=== PATIENT | female | born 1940 | race Caucasian/White ===

== ENCOUNTER → 2016-10-28 | Outpatient (CLI) | payer BC ==
[2016-06-25 11:00] VITALS: BP 128/87
[~2016-10-28] MED LIST: AMLO5TAB4 PO; APIX5TAB PO; ASPI325T4 PO; ASPI81TA9 PO; CEFU500T46 PO; CELE200C PO; DIGO125T16 PO; DILT120T4 PO; DILT180C29 PO; DILT240C2 PO; FERR-26 PO; FURO20TA3 PO; FURO40TA4 PO; HYDR-2678 PO; HYDR200T PO; HYDR473S51 PO; LEVO100T PO; LEVO25TA4 PO; LEVO500T38 PO; LISI10TA2 PO; LISI2.5T PO; LISI40TA PO; MELO-156 PO; METO100T2 PO; METO1TAB7 PO; METO25TA4 PO; METO50TA2 PO; OMEG300C PO; OXYC-244 PO; POTA10TA12 PO; SERT50TA PO; SULF1POW MC; SULF500T7 PO
--- NOTE | 2016-10-28 13:11 | KCIC ---
PROCEDURE Left knee, three views; left tibia and fibula, two views. HISTORY Pain status post arthroplasty. Clicking noise and erythema. FINDINGS Frontal, lateral and oblique views of the left knee and frontal and lateral views of the left tibia and fibula are obtained. There is a left knee arthroplasty in expected position. There is no evidence of loosening or periprosthetic fracture. There is a small knee joint effusion. There is suspected bone demineralization. There is a small plantar spur. IMPRESSION 1. Left knee arthroplasty in expected position. 2. Suspected small left knee effusion. 3. Suspected bone demineralization. 4. Small plantar spur. Electronically signed by: Viviana Peguero (Oct 28, 2016 13:09:06)
== END | disposition home or self-care (01) ==
LOC: KCIC 12:38
PROVIDERS: ATTEND Family Medicine
DX: M25.562 Pain in left knee (principal); M79.662 Pain in left lower leg; M79.604 Pain in right leg; Z96.652 Presence of left artificial knee joint
CPT/HCPCS: 73562; 73590

== ENCOUNTER → 2017-01-19 | Outpatient (CLI) | payer BC ==
[2016-06-25 11:00] VITALS: BP 128/87
[~2017-01-19] MED LIST changes: +ASPI-612 PO; -ASPI325T4 PO; +ASPI325T8 PO; -ASPI81TA9 PO; -LEVO500T38 PO; +LEVO500T59 PO; -MELO-156 PO; +MELO7.5T29 PO; -OXYC-244 PO; +OXYC-327 PO
--- NOTE | 2017-01-19 16:21 | CARD ---
APPROVED REPORT EXAM: Two-dimensional and M-mode echocardiogram with Doppler and color Doppler. Other Information Quality : Average Rhythm : Atrial Fibrillation INDICATION Aortic Valve Disease Bioprosthetic aortic valve 2D DIMENSIONS RVDd3.1 (2.9-3.5cm)Left Atrium(2D)4.4 (1.6-4.0cm) IVSd1.3 (0.7-1.1cm)Aortic Root(2D)3.1 (2.0-3.7cm) LVDd4.4 (3.9-5.9cm)LVOT Diameter1.9 (1.8-2.4cm) PWd1.3 (0.7-1.1cm)LVDs3.6 (2.5-4.0cm) FS (%) 22.8 %SV34.2 ml LVEF(%)45.0 (>50%) Aortic Valve AoV Peak Eugenio.191.6cm/sAoV VTI34.3cm AO Peak GR.14.7mmHgLVOT Peak Eugenio.94.3cm/s LVOT VTI 18.76cmAO Mean GR.9mmHg JUAN (VMAX)1.59gb0COY (VTI)1.63cm2 AI P 1/2 Ilgt351kg Mitral Valve MV E Adqnjyuj545.1cm/sMV DECEL JESZ193zy MV A Vgpewzqf28.3cm/sMV E Mean Gr.2mmHg MV FZV57gjV/A Ratio1.4 MVA (PHT)4.82cm2 TDI E/Lateral E'7.6E/Medial E'9.0 Pulmonary Valve PV Peak Jwwsphua62.0cm/sPV Peak Grad.4mmHg RVOT VTI13.1cm Tricuspid Valve TR P. Rqoigxby417rt/sRAP NYWZKQCU5luTm TR Peak Gr.03gvCfIWSG16ueRg Pulmonary Vein S1 Zviolypn12.9cm/sD2 Pnqujspl27.8cm/s LEFT VENTRICLE The left ventricle is normal size. There is borderline concentric left ventricular hypertrophy. Left ventricle systolic function is mildly diminishedl. The Ejection Fraction is 40-45%. Septal motion con sistent with post-operative state. Unable to assess diastolic function. There is no ventricular septa l defect visualized. RIGHT VENTRICLE The right ventricle is normal size. The right ventricular systolic function is normal. ATRIA The left atrium is mildly dilated. The right atrium size is normal. The interatrial septum is intact with no evidence for an atrial septal defect or patent foramen ovale as noted on 2-D or Doppler imagi ng. AORTIC VALVE Doppler and Color Flow revealed trace aortic regurgitation. Maximum pressure gradient of 15 mmHg and mean pressure gradient of 9 mmHg across the bioprosthetic valve. There is a bioprosthetic (bovine) ao rtic valve prosthesis. The prosthetic aortic valve appears normal. MITRAL VALVE Mitral annular calcification is mild. The mitral valve leaflets are thickened. There is no mitral ken ve stenosis. Doppler and Color Flow revealed trace mitral regurgitation. TRICUSPID VALVE The tricuspid valve is not well visualized. Doppler and Color Flow revealed mild tricuspid regurgitat ion. The PA pressure was estimated at 37 mmHg. There is no tricuspid valve stenosis. PULMONIC VALVE The pulmonic valve is not well visualized. Doppler and Color Flow revealed no pulmonic valvular regur gitation. There is no pulmonic valvular stenosis. GREAT VESSELS The aortic root is normal in size. The ascending aorta is dilated measuring 4.17 cm. Normal pulmonary venous flow (Doppler). The IVC is normal in size and collapses >50% with inspiration. PERICARDIAL EFFUSION There is no evidence of significant pericardial effusion. Critical Notification Critical Value: No <Conclusion> Left ventricle systolic function is mildly diminishedl. The Ejection Fraction is 40-45%. The left atrium is mildly dilated. The ascending aorta is dilated measuring 4.17 cm. Bioprosthetic (bovine) aortic valve prosthesis appears well seated and functioning well. Trace mitral regurgitation. Mild tricuspid regurgitation. The PA pressure was estimated at 37 mmHg. There is no evidence of significant pericardial effusion.
== END | disposition home or self-care (01) ==
LOC: ECHO 13:32
PROVIDERS: ATTEND Internal Medicine Cardiovascular Disease
DX: I08.3 Combined rheumatic disorders of mitral, aortic and tricuspid valves (principal); Z95.2 Presence of prosthetic heart valve
CPT/HCPCS: 93306

== ENCOUNTER 2017-12-14 07:32 | Day surgery (SDC) | payer BC ==
[~2017-12-14 07:32] MED LIST changes: -AMLO5TAB4 PO; -APIX5TAB PO; -ASPI-612 PO; -ASPI325T8 PO; +BACITRACIN 50,000 UNIT in IV NORMAL SALINE 1000ML BAG 1,000 ML IRR; -CEFU500T46 PO; -CELE200C PO; -DIGO125T16 PO; -DILT120T4 PO; -DILT180C29 PO; -DILT240C2 PO; -FERR-26 PO; -FURO20TA3 PO; -FURO40TA4 PO; -HYDR-2678 PO; -HYDR200T PO; -HYDR473S51 PO; +IV RINGERS,LACTATED 1000ML 1,000 ML IV; -LEVO100T PO; -LEVO25TA4 PO; -LEVO500T59 PO; -LISI10TA2 PO; -LISI2.5T PO; -LISI40TA PO; -MELO7.5T29 PO; -METO100T2 PO; -METO1TAB7 PO; -METO25TA4 PO; -METO50TA2 PO; +MORPHINE SULFATE 2 MG/ML DISP.SYRIN. IV; -OMEG300C PO; +ONDANSETRON PF 4 MG/2 ML VIAL. IV; -OXYC-327 PO; -POTA10TA12 PO; +PROCHLORPERAZINE 10 MG/2 ML VIAL. IV; -SERT50TA PO; -SULF1POW MC; -SULF500T7 PO
[2017-12-14] MEDS ORDERED: LIDOCAINE 2% PF Vial for OR 5 ML VIAL. (08:31)
[2017-12-14] MEDS ORDERED: ONDANSETRON PF 4 MG/2 ML VIAL. (08:31)
[2017-12-14] MEDS ORDERED: PROPOFOL 20 ML IV (08:31)
[2017-12-14] MEDS ORDERED: DEXAMETHASONE SOD PHOS 20 MG/5 ML VIAL. (08:31)
[2017-12-14] MEDS ORDERED: fentaNYL PF VIAL 100 MCG/2 ML VIAL ×3 (08:59→10:49)
[2017-12-14] MEDS ORDERED: ePHEDrine PF IN SALINE 50 MG/5 ML DISP.SYRIN IV (09:09)
[2017-12-14] MEDS: BUPIVACAINE-EPI 0.25%-1:200000 50 ML VIAL. (09:16)
[2017-12-14] MEDS ORDERED: SEVOFLURANE 31 TO 60 MINUTES. IH (09:26)
[2017-12-14] MEDS: LIDOCAINE 1% PF 2 ML VIAL. ID (10:20)
[2017-12-14] MEDS: fentaNYL PF VIAL 100 MCG/2 ML VIAL IV ×6 (10:21→11:36)
[2017-12-14] MEDS: HYDROcodone/APAP 5/325MG 1 TAB TABLET PO (10:48)
[2017-12-14] MEDS ORDERED: ceFAZolin 2GM PREMIX 2 GM/50 ML BAG IV (12:00)
== END 2017-12-14 12:20 | disposition home or self-care (01) ==
LOC: SURG 07:32
DX: R59.1 Generalized enlarged lymph nodes (principal); E78.89 Other lipoprotein metabolism disorders; Z88.8 Allergy status to other drugs, medicaments and biological substances; Z86.73 Personal history of transient ischemic attack (TIA), and cerebral infarction without residual deficits; I11.0 Hypertensive heart disease with heart failure; I50.9 Heart failure, unspecified; Z95.4 Presence of other heart-valve replacement; E78.00 Pure hypercholesterolemia, unspecified; Z79.01 Long term (current) use of anticoagulants; I48.91 Unspecified atrial fibrillation; Z90.49 Acquired absence of other specified parts of digestive tract; Z90.710 Acquired absence of both cervix and uterus; E66.9 Obesity, unspecified; Z68.34 Body mass index [BMI] 34.0-34.9, adult; M19.90 Unspecified osteoarthritis, unspecified site; M06.9 Rheumatoid arthritis, unspecified; Z96.653 Presence of artificial knee joint, bilateral; Z96.641 Presence of right artificial hip joint; E03.9 Hypothyroidism, unspecified; F32.9 Major depressive disorder, single episode, unspecified; D64.9 Anemia, unspecified; Z86.14 Personal history of Methicillin resistant Staphylococcus aureus infection; Z82.49 Family history of ischemic heart disease and other diseases of the circulatory system; Z80.42 Family history of malignant neoplasm of prostate; Z82.0 Family history of epilepsy and other diseases of the nervous system; Z79.82 Long term (current) use of aspirin; Z79.899 Other long term (current) drug therapy; Z87.891 Personal history of nicotine dependence
CPT/HCPCS: 38500; 88184; 88185; 88307; A7015; J0690; J1100; J2405; J2704; J3010; J3490; J7030

== ENCOUNTER 2018-02-09 10:10 | Emergency (ER) | payer BC ==
[2018-02-09 12:02] LABS: BILIRUBIN,URINE SMALL (NEG); CLARITY,URINE CLEAR; COLOR,URINE YELLOW; GLUCOSE,URINE NEGATIVE (NEG); NITRITE,URINE NEGATIVE (NEG); PH,URINE 6.5; PROTEIN,URINE NEGATIVE (NEG-TRACE); UROBILINOGEN,URINE 0.2 mg/dL (0.2 mg/dL)
[2018-02-09] MEDS: oxyCODONE/APAP 10/325 1 TAB TABLET PO (12:08)
[2018-02-09 12:13] LABS: BACTERIA,URINE MODERATE /HPF (0-FEW); HYALINE CASTS, URINE OCCASIONAL /HPF; RBC,URINE OCC /HPF (0-2); SQUAMOUS EPITHELIAL CELL,UR MOD /LPF; WBC,URINE OCC /HPF (0-4)
[2018-02-09 12:42] LABS: ADD MAN DIFF? NO
[2018-02-09 12:45] LABS: BASO % 0 % (0-3); EOS % 1 % (0-3); HEMATOCRIT 32.2 % (36.0-47.0); HEMOGLOBIN 10.9 g/dL (12.0-15.5); LYMPH # 1.7 x10^3/uL (1.0-4.8); LYMPH % 24 % (24-48); MEAN CORPUSCULAR HEMOGLOBIN 33 pg (25-35); MEAN CORPUSCULAR HGB CONC 34 g/dL (31-37); MEAN CORPUSCULAR VOLUME 98 fL (79-100); MONO # 0.7 x10^3/uL (0.0-1.1); MONO % 9 % (0-9); NEUT # 4.8 x10^3uL (1.8-7.7); NEUT % 66 % (31-73); PLATELET COUNT 175 x10^3/uL (140-400); RED CELL DISTRIBUTION WIDTH 15.1 % (11.5-14.5); WHITE BLOOD COUNT 7.3 x10^3/uL (4.0-11.0)
[2018-02-09 12:52] LABS: ANION GAP 7 (6-14); BLOOD UREA NITROGEN 22 mg/dL (7-20); BUN/CREATININE RATIO 22 (6-20); CALCIUM 8.7 mg/dL (8.5-10.1); CARBON DIOXIDE 28 mmol/L (21-32); CHLORIDE 103 mmol/L (98-107); GFR 53.6; GLUCOSE 96 mg/dL (70-99); POTASSIUM 3.9 mmol/L (3.5-5.1); SODIUM 138 mmol/L (136-145)
[2018-02-09 12:58] LABS: ALBUMIN 3.1 g/dL (3.4-5.0); ALBUMIN/GLOBULIN RATIO 0.9 (1.0-1.7); ALK PHOS 80 U/L (46-116); ALT (SGPT) 26 U/L (14-59); AST (SGOT) 18 U/L (15-37); TOTAL BILIRUBIN 0.3 mg/dL (0.2-1.0); TOTAL PROTEIN 6.6 g/dL (6.4-8.2)
== END 2018-02-09 15:38 | disposition home or self-care (01) ==
LOC: ER 10:10
DX: S09.90XA Unspecified injury of head, initial encounter (principal); R00.1 Bradycardia, unspecified; I48.2 Chronic atrial fibrillation; I48.92 Unspecified atrial flutter; Z79.01 Long term (current) use of anticoagulants; I10 Essential (primary) hypertension; Z88.8 Allergy status to other drugs, medicaments and biological substances; W18.09XA Striking against other object with subsequent fall, initial encounter; Y93.89 Activity, other specified; Y99.8 Other external cause status; Y92.89 Other specified places as the place of occurrence of the external cause
CPT/HCPCS: 36415; 70450; 72125; 73562; 80053; 80162; 81001; 85025; 87086; 93005; 99285-25

== ENCOUNTER → 2018-02-15 | Outpatient (CLI) | payer BC ==
[2018-02-09 14:33] VITALS: BP 118/60
[~2018-02-15] MED LIST changes: +AMLO5TAB4 PO; +APIX5TAB PO; +ASPI-612 PO; +ASPI325T8 PO; -BACITRACIN 50,000 UNIT in IV NORMAL SALINE 1000ML BAG 1,000 ML IRR; +CEFU500T46 PO; +CELE200C PO; +CONTRAST GIVEN. MC PRN; +DIGO125T79 PO; +DILT120T4 PO; +DILT180C29 PO; +DILT240C2 PO; +FERR325T14 PO; +FURO20TA3 PO; +FURO40TA4 PO; +HYDR-2678 PO; +HYDR-971 PO; +HYDR200T71 PO; +HYDR473S51 PO; +IOHEXOL 300 MG/ML 100ML VIAL. IV ONE; -IV RINGERS,LACTATED 1000ML 1,000 ML IV; +LEVO100T PO; +LEVO25TA4 PO; +LEVO500T59 PO; +LISI-130 PO; +LISI10TA2 PO; +LISI2.5T PO; +MELO7.5T29 PO; +METO100T7 PO; +METO1TAB7 PO; +METO25TA4 PO; +METO50TA6 PO; -MORPHINE SULFATE 2 MG/ML DISP.SYRIN. IV; +OMEG300C PO; -ONDANSETRON PF 4 MG/2 ML VIAL. IV; +OXYC-327 PO; +POTA10TA12 PO; -PROCHLORPERAZINE 10 MG/2 ML VIAL. IV; +SERT50TA PO; +SULF1POW MC; +SULF500T7 PO
--- NOTE | 2018-02-15 10:18 | RAD ---
CT Chest With Intravenous Contrast: History: Lung nodule Comparison: CT chest March 28, 2015. Technique: Helical CT of the chest was performed after the administration of intravenous contrast, 60 mL Omnipaque-300. Exposure: One or more of the following individualized dose reduction techniques were utilized for this examination: 1. Automated exposure control 2. Adjustment of the mA and/or kV according to patient size 3. Use of iterative reconstruction technique Findings: Visualized thyroid appears symmetric. Trachea and mainstem bronchi appear patent. No mediastinal lymphadenopathy is identified. Aortic atherosclerosis is seen. The ascending thoracic aorta appears aneurysmal with 4.4 cm in diameter at the mid ascending aorta, similar to previous study. Prosthetic aortic valve is seen. Descending thoracic aorta has a normal caliber. No pericardial thickening is identified. Right cardiac chambers appear borderline in size. No mediastinal or hilar lymphadenopathy is appreciated. Median sternotomy wires are seen. The left upper lobe demonstrates an irregular groundglass and soft tissue nodule which is measured at 1.9 cm in maximum dimension; since previous study, there is interval increase in soft tissue component as well as mild increase in size. Consequently, this is worrisome for pulmonary malignancy such as adenocarcinoma/bronchioloalveolar carcinoma. Previous maximum measurement was reported at 1.5 cm cm. Several small, nonspecific, scattered soft tissue pulmonary nodules are seen. Right upper lobe demonstrates 3 mm soft tissue pulmonary nodule (series 5 image 34). Superior segment of the left lower lobe adjacent to the fissure demonstrates 3 mm soft tissue pulmonary nodule (series 5 image 81). Soft tissue right upper lobe pulmonary nodule measuring 2-3 mm (series 5 image 84) is unchanged. A few additional small soft tissue pulmonary nodule throughout both lungs. Small epiphrenic esophageal diverticulum is seen. There is mild thickening of the left adrenal gland, similar to previous study. Cholecystectomy clips are present. There is epigastric ventral hernia, incompletely assessed, containing one wall of the transverse colon (Fraire's hernia) as well as fat. No suspicious osseous lesions are seen. Degenerative changes are present in the spine. Mild dextroconvex scoliosis of the thoracic spine is seen. Impression: 1. Mild interval enlargement in overall size of left upper lobe pulmonary nodule as well as increased amount of soft tissue component. Findings are worrisome for pulmonary malignancy. 2. No evidence of metastatic disease in the chest. 3. Ascending thoracic aortic aneurysm, similar to previous study. Electronically signed by: Ze Ace MD (02/15/2018 10:15 AM) [facility]
== END | disposition home or self-care (01) ==
LOC: CT 08:23
PROVIDERS: ATTEND Internal Medicine Hematology & Oncology
DX: R91.1 Solitary pulmonary nodule (principal); I71.2 Thoracic aortic aneurysm, without rupture; K43.9 Ventral hernia without obstruction or gangrene; I13.0 Hypertensive heart and chronic kidney disease with heart failure and stage 1 through stage 4 chronic kidney disease, or unspecified chronic kidney disease; N18.3 Chronic kidney disease, stage 3 (moderate); I50.42 Chronic combined systolic (congestive) and diastolic (congestive) heart failure; E78.00 Pure hypercholesterolemia, unspecified; E03.9 Hypothyroidism, unspecified
CPT/HCPCS: 71260; Q9967

== ENCOUNTER 2018-02-22 07:01 | Outpatient (CLI) | payer BC ==
[~2018-02-22] VITALS: Ht 149.9 cm; Wt 87.1 kg
[2018-02-22] VITALS (13 sets, daily range): BP systolic 96–190; BP diastolic 50–108
[~2018-02-22 07:01] MED LIST changes: -CONTRAST GIVEN. MC PRN; -IOHEXOL 300 MG/ML 100ML VIAL. IV ONE
[2018-02-22 07:42] LABS: BASO % 1 % (0-3); EOS % 0 % (0-3); HEMATOCRIT 36.8 % (36.0-47.0); HEMOGLOBIN 12.4 g/dL (12.0-15.5); LYMPH # 1.9 x10^3/uL (1.0-4.8); LYMPH % 23 % (24-48); MEAN CORPUSCULAR HEMOGLOBIN 33 pg (25-35); MEAN CORPUSCULAR HGB CONC 34 g/dL (31-37); MEAN CORPUSCULAR VOLUME 97 fL (79-100); MONO # 0.9 x10^3/uL (0.0-1.1); MONO % 11 % (0-9); NEUT # 5.4 x10^3uL (1.8-7.7); NEUT % 65 % (31-73); PLATELET COUNT 333 x10^3/uL (140-400); RED BLOOD COUNT 3.77 x10^6/uL (3.50-5.40); WHITE BLOOD COUNT 8.3 x10^3/uL (4.0-11.0)
[2018-02-22] MEDS ORDERED: METH2.5T PO (07:42)
[2018-02-22] MEDS ORDERED: FOLI1TAB16 PO (07:42)
[2018-02-22 07:55] LABS: PROTHROMBIN TIME PATIENT 14.3 SEC (11.7-14.0)
[2018-02-22] MEDS ORDERED: LIDOCAINE WITH 8.4% SOD BICARB 3 ML DISP.SYRIN. ONE (07:56)
[2018-02-22] MEDS ORDERED: MIDAZOLAM HCL/PF 2 MG/2 ML VIAL. ONE (08:01)
[2018-02-22] MEDS ORDERED: fentaNYL PF VIAL 100 MCG/2 ML VIAL ONE (08:01)
[2018-02-22] MEDS ORDERED: LIDOCAINE WITH 8.4% SOD BICARB 3 ML DISP.SYRIN. IJ ONE (08:15)
[2018-02-22] MEDS ORDERED: fentaNYL PF VIAL 100 MCG/2 ML VIAL IV ONE (08:15)
[2018-02-22] MEDS ORDERED: MIDAZOLAM HCL/PF 2 MG/2 ML VIAL. IV ONE (08:15)
--- NOTE | 2018-02-22 09:07 | PDOC ---
MODERATE SEDATION ASSESSMENT RISKS/ALTERNATIVES Risks/Alternatives Risks and alternatives of this type of sedation and procedure discussed with: RISK/ALTERNATIVES: Patient H & P ON CHART H & P H & P on chart and reviewed for co-morbid conditions and appropriate labs. H&P ON CHART: Yes STATUS PREG STATUS ASSESSED: Yes MEDS/ALLERGIES REVIEWED Meds/Allergies Reviewed Medications and Allergies including time and route of recently administered narcotics and sedatives. MEDS/ALLERGIES REVIEWED: Yes ASA RATING ASA RATING: II AIRWAY ASSESSMENT Airway Assessment Airway patency, oral function limitations, presence of caps, crowns, dentures, partials, and ability to extend neck assessed. AIRWAY ASSESSMENT: Yes MALLAMPATI SCORE MALLAMPATI SCORE: II PRE-SEDATION ASSESSMENT PRE-SEDATION ASSESSMENT: Yes SALENA KNOWLES MD Feb 22, 2018 09:07
--- NOTE | 2018-02-22 12:28 | RAD ---
CT-guided biopsy, left upper lobe pulmonary nodule 02/22/2018 Indication: 77-year-old female with a left upper lobe pulmonary nodule. Prior imaging going back to 2014 demonstrates a nodule be present that time slowly going in the interim. Imaging findings raise concern for adenocarcinoma in situ. Discussion: The risks and benefits of the procedure were discussed the patient. Informed consent was obtained. Timeout procedure was performed. The posterior left thorax was prepped and draped using sterile barrier technique. CT imaging was performed redemonstrating a small mixed density nodule left upper lobe. 1% lidocaine without epinephrine was administered to the skin and subcutaneous tissues for local anesthesia. Under intermittent CT guidance a a 17-gauge needle was advanced to the periphery of the nodule. Core biopsy samples were obtained. Repeat imaging demonstrates perilesional hemorrhage. Minimal hemoptysis noted. The needle was removed and manual pressure held. Repeat imaging demonstrates similar perilesional hemorrhage with no pneumothorax. Patient tolerated the procedure well and remained hemodynamically stable throughout. The procedures performed under conscious sedation including continuous cardiopulmonary monitoring via a dedicated sedation nurse. Gxbj-tb-ivcv sedation time: 30 minutes. Impression: CT-guided biopsy, left upper lobe pulmonary nodule PQRS Compliance Statement: One or more of the following individualized dose reduction techniques were utilized for this examination: 1. Automated exposure control 2. Adjustment of the mA and/or kV according to patient size 3. Use of iterative reconstruction technique
--- NOTE | 2018-02-22 17:48 | RAD ---
EXAM: CHEST AP ONLY DATE: 02/22/2018 10:02 AM INDICATION: OUTPATIENT. LUNG BIOPSY LEFT SIDE. Hx CABG, HTN COMPARISON: No Prior FINDINGS: The heart is mildly enlarged. Mediastinal and hilar contours are stable. Patchy opacities in the left upper lung likely postbiopsy change. No pleural effusion or pneumothorax. IMPRESSION: Left upper lung opacities, post biopsy change No pneumothorax. Electronically signed by: Earle Perdomo MD (02/22/2018 5:44 PM) [id number]
--- NOTE | 2018-02-23 18:08 | PATHOLOGY ---
[facility] Accession Number: [id number] . 01 Material submitted: . IMAGE GUIDED LEFT LUNG BIOPSY . 01 Clinical history: . Left lung mass . 02 Diagnosis: Lung tissue, left lung mass CT guided needle biopsies: - ADENOCARCINOMA, MODERATELY-WELL DIFFERENTIATED. SEE COMMENT. LBQ/02/23/2018 . 02 Comment: Sections of the left lung mass CT guided needle biopsies show focal replacement of lung parenchyma by a malignant epithelial neoplasm. The neoplasm is composed of crowded irregular acinar structures and papillary structures which are lined by columnar cells which possess enlarged, rounded to ovoid hyperchromatic nuclei focally containing nucleoli. There is no evidence of necrosis. The morphologic findings are supportive of the diagnosis of a moderately-well differentiated pulmonary adenocarcinoma. The case is also examined by Dr. Ryan Winter, who concurs with the diagnosis. The results are reported to Dr. Miller on 02/23/18 at 12:00 p.m. (JPM/db; 02/23/18) . 02 Electronically signed: . Baldo Dillard MD, Pathologist NPI- [id number] . 01 Gross description: . Received in formalin labeled "Ying Casas, left lung tissue," are 2 distinct needle cores of orellana soft tissue measuring 0.7 and 0.9 cm in length and measuring less than 0.1 cm each in diameter. The specimen is submitted entirely in cassette A1 and A2. (TSD; 02/22/2018) TOB/TOB . 02 Pathologist provided ICD-10: C34.92 . 02 CPT . 014948 Performed at: [address], [place], [place] [id number] MD Kristofer Tolentino MD Phone: [phone] Performed at: 02 [facility] [address] [place], [place] [id number] MD Baldo Dillard MD Phone: [phone]
== END 2018-02-22 11:30 ==
LOC: INTRAD 07:01
PROVIDERS: ATTEND Internal Medicine Hematology & Oncology
DX: C34.92 Malignant neoplasm of unspecified part of left bronchus or lung (principal); I13.0 Hypertensive heart and chronic kidney disease with heart failure and stage 1 through stage 4 chronic kidney disease, or unspecified chronic kidney disease; N18.3 Chronic kidney disease, stage 3 (moderate); I50.42 Chronic combined systolic (congestive) and diastolic (congestive) heart failure; E03.9 Hypothyroidism, unspecified; E78.00 Pure hypercholesterolemia, unspecified; M06.9 Rheumatoid arthritis, unspecified; M19.90 Unspecified osteoarthritis, unspecified site; F32.9 Major depressive disorder, single episode, unspecified; F17.210 Nicotine dependence, cigarettes, uncomplicated; E66.9 Obesity, unspecified; Z68.39 Body mass index [BMI] 39.0-39.9, adult; Z88.8 Allergy status to other drugs, medicaments and biological substances; Z79.01 Long term (current) use of anticoagulants; Z79.899 Other long term (current) drug therapy; Z87.891 Personal history of nicotine dependence; Z86.73 Personal history of transient ischemic attack (TIA), and cerebral infarction without residual deficits; Z95.2 Presence of prosthetic heart valve; Z90.49 Acquired absence of other specified parts of digestive tract; Z90.710 Acquired absence of both cervix and uterus; Z98.890 Other specified postprocedural states; Z96.652 Presence of left artificial knee joint; Z82.49 Family history of ischemic heart disease and other diseases of the circulatory system; Z80.42 Family history of malignant neoplasm of prostate; Z84.89 Family history of other specified conditions
CPT/HCPCS: 32405; 36415; 71045; 77012; 85025; 85610; 85730; 99152; 99153; J2250; J3010

== ENCOUNTER 2018-04-03 19:55 | Inpatient (IN) | payer BC ==
[~2018-04-03] VITALS: Ht 149.9 cm; Wt 86.8 kg
[~2018-04-03 19:55] MED LIST changes: +FOLI1TAB16 PO; +METH2.5T PO
[2018-04-03 20:30] LABS: PROTHROMBIN TIME PATIENT 15.7 SEC (11.7-14.0)
--- NOTE | 2018-04-03 21:02 | PHYS DOC ---
Past Medical History Past Medical History: A-Fib, Arthritis, Hypertension, Hypothyroid Additional Past Medical Histor: Atrial flutter, RA Past Surgical History: Cholecystectomy, Hip Replacement, Knee Replacement Additional Past Surgical Histo: AORITC VALVE REPLACEMENT Alcohol Use: None Drug Use: None Adult General Chief Complaint Chief Complaint: SHORTNESS OF BREATH HPI HPI Patient is a 77 year old female who presents with progressive shortness breath over the past 48 hours, generalized weakness, productive cough with yellow tinged sputum. Patient also reports chills, noted to have a temperature 100.0 on ED arrival. History of A. fib currently on Eloquis. Patient noted to be in A. fib with RVR with variable rate from 100 to 130. Patient states she did not take any of her medications today as she did not feel well. He states she has otherwise been compliant with her medications. Denies chest pain, palpitations, increased leg pain or swelling. No other acute symptoms or complaints.[] Review of Systems Review of Systems ROS as per HPI All other systems were reviewed and found to be within normal limits, except as documented in this note. Allergies Allergies Allergies Coded Allergies Type Severity Reaction Last Updated Verified phenobarbital Adverse Reaction Intermediate HALLUCINATIONS 12/09/17 Yes Physical Exam Physical Exam Constitutional: Well developed, well nourished, no acute distress, non-toxic appearance. [] HENT: Normocephalic, atraumatic, bilateral external ears normal, oropharynx moist, no oral exudates, nose normal. [] Eyes: PERRLA, EOMI, conjunctiva normal. [] Neck: Normal range of motion, no tenderness, supple, no stridor. [] Cardiovascular: Irregular rhythm, tachycardic.[] Lungs & Thorax: Patient's nonlabored, mild tachypnea. Coarse rhonchi B. Skin: Warm, dry, no erythema, no rash. [] Back: No tenderness. [] Extremities: No tenderness, trace edema. [] Neurologic: Alert and oriented X 3, normal motor function, normal sensory function, no focal deficits noted. [] Psychologic: Affect normal, judgement normal, mood normal. [] Current Patient Data Vital Signs Vital Signs Date Time Temp Pulse Resp B/P (MAP) Pulse Ox O2 Delivery O2 Flow Rate FiO2 04/03/18 19:55 100.0 123 22 152/78 (102) 80 Room Air 100.0 Lab Values Laboratory Tests Test 04/03/18 20:05 04/03/18 20:06 O2 Saturation 93 % (92-99) Arterial Blood pH 7.43 (7.35-7.45) Arterial Blood pCO2 at Patient Temp 37 mmHg (35-46) Arterial Blood pO2 at Patient Temp 69 mmHg (65-108) Arterial Blood HCO3 24 mmol/L (21-28) Arterial Blood Base Excess -1 mmol/L (-3-3) Prothrombin Time 15.7 SEC (11.7-14.0) H Prothrombin Time INR 1.3 (0.8-1.1) H Lactic Acid Level 1.0 mmol/L (0.4-2.0) EKG EKG [EKG: [id number]] Radiology/Procedures Radiology/Procedures CXR: No acute pulmonary edema or obvious pulmonary infiltrate.[] Course & Med Decision Making Course & Med Decision Making Pertinent Labs and Imaging studies reviewed. (See chart for details) [Acute respiratory failure with hypoxia with concerns for congestive heart failure, versus pneumonia. PE also Center but felt less likely. Patient had been compliant with Eloquis prior to symptom onset and would be kept on AC therapy during hospital stay. IV abx given, IV lasix given, pt started on cardizem for Afibe. Dr. Avila accepts care of the patient at 20:10. Courtesy bridge orders provided.] Dragon Disclaimer Dragon Disclaimer This electronic medical record was generated, in whole or in part, using a voice recognition dictation system. Departure Departure Impression: Primary Impression: A-fib Additional Impressions: CHF (congestive heart failure) Acute respiratory failure with hypoxia Disposition: ADMITTED INPATIENT Admitting Physician: Other (Dr. Avila) Condition: IMPROVED Referrals: [facility] (PCP) Problem Qualifiers TANESHA MOREL DO Apr 03, 2018 21:02
[2018-04-03 21:04] LABS: BASO % 0 % (0-3); EOS # 0.1 x10^3/uL (0.0-0.7); EOS % 1 % (0-3); HEMOGLOBIN 10.8 g/dL (12.0-15.5); LYMPH # 0.6 x10^3/uL (1.0-4.8); LYMPH % 5 % (24-48); MEAN CORPUSCULAR HEMOGLOBIN 32 pg (25-35); MEAN CORPUSCULAR HGB CONC 34 g/dL (31-37); MEAN CORPUSCULAR VOLUME 95 fL (79-100); MONO % 7 % (0-9); NEUT # 12.4 x10^3uL (1.8-7.7); NEUT % 88 % (31-73); PLATELET COUNT 259 x10^3/uL (140-400); RED BLOOD COUNT 3.37 x10^6/uL (3.50-5.40); RED CELL DISTRIBUTION WIDTH 15.1 % (11.5-14.5); WHITE BLOOD COUNT 14.1 x10^3/uL (4.0-11.0)
[2018-04-03 21:20] LABS: CALCIUM 9.6 mg/dL (8.5-10.1); CREATININE 0.9 mg/dL (0.6-1.0); GFR 60.6; POTASSIUM 3.3 mmol/L (3.5-5.1)
[2018-04-03 21:23] LABS: ALBUMIN 3.3 g/dL (3.4-5.0); ALBUMIN/GLOBULIN RATIO 0.8 (1.0-1.7); TOTAL BILIRUBIN 0.5 mg/dL (0.2-1.0); TOTAL PROTEIN 7.6 g/dL (6.4-8.2)
[2018-04-03] MEDS ORDERED: ONDANSETRON PF 4 MG/2 ML VIAL. IV PRN (21:30)
[2018-04-03 21:36] LABS: BASE EXCESS ABG -1 mmol/L (-3-3); HCO3 ABG 24 mmol/L (21-28); PCO2 ABG 37 mmHg (35-46); PO2 ABG 69 mmHg (65-108); SAT O2 ABG 93 % (92-99)
[2018-04-03 21:46] LABS: % BANDS 6 % (0-9); % EOS 1 % (0-5); % LYMPHS 8 % (24-48); % MONOS 7 % (0-10); % SEGS 78 % (35-66); PLT ESTIMATE ADEQUATE (ADEQUATE)
--- NOTE | 2018-04-03 21:52 | RAD ---
CHEST AP ONLY History: COUGH, SOA. Comparison: February 22, 2018 Heart size: Stable Devi/mediastinum: Stable Lungs: No focal infiltrate. Pleura: No evidence of pleural effusion. Pneumothorax: None visualized Bones: Regional skeleton appears grossly intact. Miscellaneous: None Impression: Stable exam, no acute infiltrate. Electronically signed by: Ze Alexandra MD (04/03/2018 9:48 PM) [facility]
[2018-04-03] MEDS ORDERED: dilTIAZem INJ 125 MG in IV DEXTROSE 5% 100ML 100 ML IV ONE (22:00)
[2018-04-03] MEDS ORDERED: IV NORMAL SALINE 1000ML BAG 1,000 ML IV SCH (22:00)
[2018-04-03] MEDS ORDERED: FUROSEMIDE 20 MG/2 ML VIAL. IVP ONE (22:00)
[2018-04-03] MEDS ORDERED: APIXABAN 5 MG TABLET. PO ONE (22:00)
[2018-04-03] MEDS ORDERED: AZITHROMYCIN 250 MG TABLET. PO ONE (22:00)
[2018-04-03 22:30] VITALS: BP 192/92
[2018-04-03] MEDS ORDERED: POTASSIUM CHLORIDE 20 MEQ TABLET.ER. PO ONE (22:30)
[2018-04-04] VITALS (9 sets, daily range): BP systolic 126–197; BP diastolic 62–98
[2018-04-04 06:08] LABS: BASO # 0.1 x10^3/uL (0.0-0.2); BASO % 0 % (0-3); EOS # 0.1 x10^3/uL (0.0-0.7); EOS % 1 % (0-3); HEMATOCRIT 32.6 % (36.0-47.0); HEMOGLOBIN 10.6 g/dL (12.0-15.5); LYMPH % 7 % (24-48); MEAN CORPUSCULAR HEMOGLOBIN 32 pg (25-35); MEAN CORPUSCULAR HGB CONC 33 g/dL (31-37); MEAN CORPUSCULAR VOLUME 97 fL (79-100); MONO # 0.9 x10^3/uL (0.0-1.1); MONO % 7 % (0-9); NEUT # 12.1 x10^3uL (1.8-7.7); NEUT % 85 % (31-73); PLATELET COUNT 239 x10^3/uL (140-400); RED BLOOD COUNT 3.36 x10^6/uL (3.50-5.40); RED CELL DISTRIBUTION WIDTH 14.9 % (11.5-14.5); WHITE BLOOD COUNT 14.2 x10^3/uL (4.0-11.0)
[2018-04-04 06:39] LABS: ALBUMIN 3.3 g/dL (3.4-5.0); ALBUMIN/GLOBULIN RATIO 0.8 (1.0-1.7); CALCIUM 9.4 mg/dL (8.5-10.1); CREATININE 0.9 mg/dL (0.6-1.0); GFR 60.6; POTASSIUM 3.5 mmol/L (3.5-5.1); TOTAL BILIRUBIN 0.4 mg/dL (0.2-1.0); TOTAL PROTEIN 7.6 g/dL (6.4-8.2)
--- NOTE | 2018-04-04 07:31 | EKG ---
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
--- NOTE | 2018-04-04 12:43 | CONS ---
DATE OF CONSULTATION: 04/04/2018 REASON FOR CONSULTATION: Atrial fibrillation with RVR. HISTORY OF PRESENT ILLNESS: The patient is a pleasant 77-year-old woman who comes into the hospital in the setting of progressive dyspnea. She has a longstanding history of cardiovascular comorbidities as described below. She states that over the course of the last few days she has had increasing URI type symptoms, which ultimately prompted her to arrive in the hospital where she was also noted to have AFib with RVR. She was treated with presumed pneumonia and diastolic heart failure with atrial fibrillation and was admitted for further care. This morning, she denies any specific chest pain, but continues to have cough with significant sputum production and dyspnea. PAST MEDICAL HISTORY: 1. Permanent atrial fibrillation. 2. History of diastolic heart failure with ejection fraction of approximately 45%. 3. Prior history of bioprosthetic aortic valve. 4. Hypertension. 5. Chronic kidney disease. 6. History of pulmonary hypertension, likely presumed to be secondary. SOCIAL HISTORY: Denies any alcohol, tobacco or illicit drug use. She does not have a job currently, she is retired. FAMILY HISTORY: Noncontributory. PAST SURGICAL HISTORY: Prior history of breast biopsy, total hip replacement on the right side, total knee replacement on the right side and hysterectomy. She has also had colonic resection and bioprosthetic aortic valve as noted above. CURRENT CARDIAC MEDICATIONS: 1. Metoprolol 150 mg daily. 2. Diltiazem 120 mg daily. 3. Eliquis 5 mg b.i.d. ALLERGIES: PHENOBARBITAL. REVIEW OF SYSTEMS: Negative for 10 out of 14 systems reviewed unless otherwise mentioned above in the HPI. PHYSICAL EXAMINATION: VITAL SIGNS: Afebrile, heart rate 120, blood pressure 144/67, pulse ox 96% on 4 liters nasal cannula. GENERAL: She is in mild distress from coughing. HEAD AND NECK: Otherwise unremarkable. CARDIAC: Irregularly irregular without any significant murmurs, rubs or gallops audible. LUNGS: Notable for diffuse bilateral rhonchi and wheezing. ABDOMEN: Obese, nontender, nondistended. EXTREMITIES: Trace edema without any significant clubbing or cyanosis. DIAGNOSTIC STUDIES: Hemoglobin 10.6, platelets 239, white blood cell count 14.2. Creatinine is 0.9. Cardiac enzymes negative x 2. BNP mildly elevated at 5900. Chest x-ray demonstrates no focal infiltrate. IMPRESSION: 1. Atrial fibrillation with a rapid ventricular response in the setting of acute chronic obstructive pulmonary disease exacerbation. 2. Chronic obstructive pulmonary disease exacerbation, likely secondary to viral bronchitis. 3. 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 4. Hypertension. 5. New diagnosis of lung cancer. RECOMMENDATIONS: Continue with diltiazem drip at this time. We will restart her home diltiazem and digoxin. Plan to restart her metoprolol slowly as her chronic obstructive pulmonary disease exacerbation resolves. Continue anticoagulation unless it needs to be held for any pulmonary issues/bronchoscopy, etc. We will obtain an echocardiogram and follow up with her tomorrow. Thank you for this consultation. CLAY MANZANO MD DR: YAZ/hazel JOB#: [id number] / [id number]
[2018-04-04] MEDS: DIGOXIN 125 MCG TABLET. PO SCH (13:05)
[2018-04-04] MEDS: APIXABAN 5 MG TABLET. PO SCH ×2 (13:05→22:27)
[2018-04-04] MEDS: ANTI-COAG MONITOR BY PHARMACY. MC PRN (15:03)
--- NOTE | 2018-04-04 19:02 | PDOC1 ---
History and Physical History of Present Illness History of Present Illness HPI per ED: Patient is a 77 year old female who presents with progressive shortness breath over the past 48 hours, generalized weakness, productive cough with yellow tinged sputum. Patient also reports chills, noted to have a temperature 100.0 on ED arrival. History of A. fib currently on Eloquis. Patient noted to be in A. fib with RVR with variable rate from 100 to 130. Patient states she did not take any of her medications today as she did not feel well. He states she has otherwise been compliant with her medications. Denies chest pain, palpitations, increased leg pain or swelling. No other acute symptoms or complaints.[] On my exam nad, pleasent, no c/o sob Past Medical History Cardiovascular: AFIB, HTN, Hyperlipidemia, Valve insufficiency Pulmonary: No pertinent hx CENTRAL NERVOUS SYSTEM: Other GI: Diverticulosis, GERD Heme/Onc: Anemia NOS Hepatobiliary: No pertinent hx Psych: No pertinent hx Rheumatologic: Rheumatoid arthritis Renal/: Chronic renal insuff Endocrine: Hypothyroidism Past Surgical History Past Surgical History: Cholecystectomy, Total hip replacement, Hysterectomy, Colon Resection, Other Family History Family History: Hypertension Social History ALCOHOL: none Drugs: None Current Problem List Problem List Problems Medical Problems: (1) A-fib Status: Acute (2) Acute respiratory failure with hypoxia Status: Acute (3) CHF (congestive heart failure) Status: Acute Current Medications Current Medications Current Medications Medications (Trade) Dose Ordered Sig/Vikram Start Time Stop Time Status Last Admin Dose Admin Apixaban (Eliquis) 5 mg BID 04/04/18 13:00 04/04/18 13:05 5 MG Azithromycin (Zithromax) 500 mg 1X ONCE 04/03/18 22:00 04/03/18 22:01 DC 04/03/18 21:54 500 MG Ceftriaxone Sodium 50 ml @ 100 mls/hr 1X ONCE 04/03/18 22:00 04/03/18 22:29 DC 04/03/18 21:54 100 MLS/HR Digoxin (Lanoxin) 125 mcg DAILY 04/04/18 13:00 04/04/18 13:05 125 MCG Diltiazem HCl (Cardizem 24hr Cd) 240 mg DAILY 04/04/18 13:00 04/04/18 13:04 240 MG Diltiazem HCl 125 mg/Dextrose 125 ml @ 5 mls/hr 1X ONCE 04/03/18 22:00 04/04/18 22:59 04/03/18 00:30 5 MLS/HR Furosemide (Lasix) 20 mg 1X ONCE 04/03/18 22:00 04/03/18 22:01 DC 04/03/18 21:57 20 MG Influenza Virus Vaccine (Afluria Trivalent [id number] Syringe) 0.5 ml ONCE ONCE 04/04/18 09:00 04/04/18 09:01 DC 04/04/18 08:23 0.5 ML Info (Anti-Coagulation Monitoring By Pharmacy) 1 each PRN DAILY PRN 04/04/18 15:00 04/04/18 15:03 1 EACH Ondansetron HCl (Zofran) 4 mg PRN Q8HRS PRN 04/03/18 21:30 04/04/18 21:29 Potassium Chloride (Klor-Con) 40 meq 1X ONCE 04/03/18 22:30 04/03/18 22:31 DC 04/03/18 22:10 40 MEQ Sodium Chloride 1,000 ml @ 75 mls/hr [id number] 04/03/18 22:00 04/03/18 22:00 DC Allergies Allergies Allergies Coded Allergies Type Severity Reaction Last Updated Verified phenobarbital Adverse Reaction Intermediate HALLUCINATIONS 12/09/17 Yes ROS Review of System CONSTITUTIONAL: No fever or chills EYES: No recent changes SKIN: No rash or itching CARDIOVASCULAR: No chest pain, syncope, palpitations, or edema RESPIRATORY: No SOB or cough GASTROINTESTINAL: No nausea, vomiting or abdominal pain NEUROLOGICAL: No headaches or weakness ENDOCRINE: No cold or heat intolerance GENITOURINARY: No urgency or frequency of urination MUSCULOSKELETAL: No back pain or joint pain LYMPHATICS: No enlarged lymph nodes PSYCHIATRIC: No anxiety or depression Physical Exam Physical Exam GEN.: No apparent distress. Alert and oriented. HEENT: Head is normocephalic, atraumatic NECK: Supple. LUNGS: Clear to auscultation. HEART: RRR, S1, S2 present. Peripheral pulses intact ABDOMEN: Soft, nontender. Positive bowel sounds. EXTREMITIES: Without any cyanosis. NEUROLOGIC: Normal speech, normal tone PSYCHIATRIC: Normal affect, normal mood. SKIN: No ulcerations Vitals Vitals Vital Signs Date Time Temp Pulse Resp B/P (MAP) Pulse Ox O2 Delivery O2 Flow Rate FiO2 9/30/18 15:00 99.0 103 168/86 (113) 96 Nasal Cannula 4.0 99.0 04/04/18 07:43 30 Labs Labs Laboratory Tests Test 04/03/18 20:05 04/03/18 20:06 04/03/18 20:55 04/04/18 01:00 O2 Saturation 93 % (92-99) Arterial Blood pH 7.43 (7.35-7.45) Arterial Blood pCO2 at Patient Temp 37 mmHg (35-46) Arterial Blood pO2 at Patient Temp 69 mmHg (65-108) Arterial Blood HCO3 24 mmol/L (21-28) Arterial Blood Base Excess -1 mmol/L (-3-3) Prothrombin Time 15.7 SEC (11.7-14.0) Prothromb Time International Ratio 1.3 (0.8-1.1) Lactic Acid Level 1.0 mmol/L (0.4-2.0) White Blood Count 14.1 x10^3/uL (4.0-11.0) Red Blood Count 3.37 x10^6/uL (3.50-5.40) Hemoglobin 10.8 g/dL (12.0-15.5) Hematocrit 32.0 % (36.0-47.0) Mean Corpuscular Volume 95 fL (79-100) Mean Corpuscular Hemoglobin 32 pg (25-35) Mean Corpuscular Hemoglobin Concent 34 g/dL (31-37) Red Cell Distribution Width 15.1 % (11.5-14.5) Platelet Count 259 x10^3/uL (140-400) Neutrophils (%) (Auto) 88 % (31-73) Lymphocytes (%) (Auto) 5 % (24-48) Monocytes (%) (Auto) 7 % (0-9) Eosinophils (%) (Auto) 1 % (0-3) Basophils (%) (Auto) 0 % (0-3) Neutrophils # (Auto) 12.4 x10^3uL (1.8-7.7) Lymphocytes # (Auto) 0.6 x10^3/uL (1.0-4.8) Monocytes # (Auto) 1.0 x10^3/uL (0.0-1.1) Eosinophils # (Auto) 0.1 x10^3/uL (0.0-0.7) Basophils # (Auto) 0.0 x10^3/uL (0.0-0.2) Segmented Neutrophils % 78 % (35-66) Band Neutrophils % 6 % (0-9) Lymphocytes % 8 % (24-48) Monocytes % 7 % (0-10) Eosinophils % 1 % (0-5) Platelet Estimate Adequate (ADEQUATE) Sodium Level 142 mmol/L (136-145) Potassium Level 3.3 mmol/L (3.5-5.1) Chloride Level 104 mmol/L (98-107) Carbon Dioxide Level 27 mmol/L (21-32) Anion Gap 11 (6-14) Blood Urea Nitrogen 12 mg/dL (7-20) Creatinine 0.9 mg/dL (0.6-1.0) Estimated GFR (Cockcroft-Gault) 60.6 BUN/Creatinine Ratio 13 (6-20) Glucose Level 117 mg/dL (70-99) Calcium Level 9.6 mg/dL (8.5-10.1) Total Bilirubin 0.5 mg/dL (0.2-1.0) Aspartate Amino Transf (AST/SGOT) 30 U/L (15-37) Alanine Aminotransferase (ALT/SGPT) 28 U/L (14-59) Alkaline Phosphatase 77 U/L (46-116) Troponin I Quantitative 0.017 ng/mL (0.000-0.055) 0.019 ng/mL (0.000-0.055) QB-Zof-F-Type Natriuretic Peptide 5942 pg/mL (0-449) Total Protein 7.6 g/dL (6.4-8.2) Albumin 3.3 g/dL (3.4-5.0) Albumin/Globulin Ratio 0.8 (1.0-1.7) Test 04/04/18 04:00 White Blood Count 14.2 x10^3/uL (4.0-11.0) Red Blood Count 3.36 x10^6/uL (3.50-5.40) Hemoglobin 10.6 g/dL (12.0-15.5) Hematocrit 32.6 % (36.0-47.0) Mean Corpuscular Volume 97 fL (79-100) Mean Corpuscular Hemoglobin 32 pg (25-35) Mean Corpuscular Hemoglobin Concent 33 g/dL (31-37) Red Cell Distribution Width 14.9 % (11.5-14.5) Platelet Count 239 x10^3/uL (140-400) Neutrophils (%) (Auto) 85 % (31-73) Lymphocytes (%) (Auto) 7 % (24-48) Monocytes (%) (Auto) 7 % (0-9) Eosinophils (%) (Auto) 1 % (0-3) Basophils (%) (Auto) 0 % (0-3) Neutrophils # (Auto) 12.1 x10^3uL (1.8-7.7) Lymphocytes # (Auto) 1.0 x10^3/uL (1.0-4.8) Monocytes # (Auto) 0.9 x10^3/uL (0.0-1.1) Eosinophils # (Auto) 0.1 x10^3/uL (0.0-0.7) Basophils # (Auto) 0.1 x10^3/uL (0.0-0.2) Sodium Level 143 mmol/L (136-145) Potassium Level 3.5 mmol/L (3.5-5.1) Chloride Level 102 mmol/L (98-107) Carbon Dioxide Level 29 mmol/L (21-32) Anion Gap 12 (6-14) Blood Urea Nitrogen 11 mg/dL (7-20) Creatinine 0.9 mg/dL (0.6-1.0) Estimated GFR (Cockcroft-Gault) 60.6 BUN/Creatinine Ratio 12 (6-20) Glucose Level 74 mg/dL (70-99) Calcium Level 9.4 mg/dL (8.5-10.1) Total Bilirubin 0.4 mg/dL (0.2-1.0) Aspartate Amino Transf (AST/SGOT) 28 U/L (15-37) Alanine Aminotransferase (ALT/SGPT) 25 U/L (14-59) Alkaline Phosphatase 73 U/L (46-116) Troponin I Quantitative < 0.017 ng/mL (0.000-0.055) Total Protein 7.6 g/dL (6.4-8.2) Albumin 3.3 g/dL (3.4-5.0) Albumin/Globulin Ratio 0.8 (1.0-1.7) Laboratory Tests Test 04/03/18 20:05 04/03/18 20:06 04/03/18 20:55 04/04/18 01:00 O2 Saturation 93 % (92-99) Arterial Blood pH 7.43 (7.35-7.45) Arterial Blood pCO2 at Patient Temp 37 mmHg (35-46) Arterial Blood pO2 at Patient Temp 69 mmHg (65-108) Arterial Blood HCO3 24 mmol/L (21-28) Arterial Blood Base Excess -1 mmol/L (-3-3) Prothrombin Time 15.7 SEC (11.7-14.0) Prothromb Time International Ratio 1.3 (0.8-1.1) Lactic Acid Level 1.0 mmol/L (0.4-2.0) White Blood Count 14.1 x10^3/uL (4.0-11.0) Red Blood Count 3.37 x10^6/uL (3.50-5.40) Hemoglobin 10.8 g/dL (12.0-15.5) Hematocrit 32.0 % (36.0-47.0) Mean Corpuscular Volume 95 fL (79-100) Mean Corpuscular Hemoglobin 32 pg (25-35) Mean Corpuscular Hemoglobin Concent 34 g/dL (31-37) Red Cell Distribution Width 15.1 % (11.5-14.5) Platelet Count 259 x10^3/uL (140-400) Neutrophils (%) (Auto) 88 % (31-73) Lymphocytes (%) (Auto) 5 % (24-48) Monocytes (%) (Auto) 7 % (0-9) Eosinophils (%) (Auto) 1 % (0-3) Basophils (%) (Auto) 0 % (0-3) Neutrophils # (Auto) 12.4 x10^3uL (1.8-7.7) Lymphocytes # (Auto) 0.6 x10^3/uL (1.0-4.8) Monocytes # (Auto) 1.0 x10^3/uL (0.0-1.1) Eosinophils # (Auto) 0.1 x10^3/uL (0.0-0.7) Basophils # (Auto) 0.0 x10^3/uL (0.0-0.2) Segmented Neutrophils % 78 % (35-66) Band Neutrophils % 6 % (0-9) Lymphocytes % 8 % (24-48) Monocytes % 7 % (0-10) Eosinophils % 1 % (0-5) Platelet Estimate Adequate (ADEQUATE) Sodium Level 142 mmol/L (136-145) Potassium Level 3.3 mmol/L (3.5-5.1) Chloride Level 104 mmol/L (98-107) Carbon Dioxide Level 27 mmol/L (21-32) Anion Gap 11 (6-14) Blood Urea Nitrogen 12 mg/dL (7-20) Creatinine 0.9 mg/dL (0.6-1.0) Estimated GFR (Cockcroft-Gault) 60.6 BUN/Creatinine Ratio 13 (6-20) Glucose Level 117 mg/dL (70-99) Calcium Level 9.6 mg/dL (8.5-10.1) Total Bilirubin 0.5 mg/dL (0.2-1.0) Aspartate Amino Transf (AST/SGOT) 30 U/L (15-37) Alanine Aminotransferase (ALT/SGPT) 28 U/L (14-59) Alkaline Phosphatase 77 U/L (46-116) Troponin I Quantitative 0.017 ng/mL (0.000-0.055) 0.019 ng/mL (0.000-0.055) MR-Vrw-B-Type Natriuretic Peptide 5942 pg/mL (0-449) Total Protein 7.6 g/dL (6.4-8.2) Albumin 3.3 g/dL (3.4-5.0) Albumin/Globulin Ratio 0.8 (1.0-1.7) Test 04/04/18 04:00 White Blood Count 14.2 x10^3/uL (4.0-11.0) Red Blood Count 3.36 x10^6/uL (3.50-5.40) Hemoglobin 10.6 g/dL (12.0-15.5) Hematocrit 32.6 % (36.0-47.0) Mean Corpuscular Volume 97 fL (79-100) Mean Corpuscular Hemoglobin 32 pg (25-35) Mean Corpuscular Hemoglobin Concent 33 g/dL (31-37) Red Cell Distribution Width 14.9 % (11.5-14.5) Platelet Count 239 x10^3/uL (140-400) Neutrophils (%) (Auto) 85 % (31-73) Lymphocytes (%) (Auto) 7 % (24-48) Monocytes (%) (Auto) 7 % (0-9) Eosinophils (%) (Auto) 1 % (0-3) Basophils (%) (Auto) 0 % (0-3) Neutrophils # (Auto) 12.1 x10^3uL (1.8-7.7) Lymphocytes # (Auto) 1.0 x10^3/uL (1.0-4.8) Monocytes # (Auto) 0.9 x10^3/uL (0.0-1.1) Eosinophils # (Auto) 0.1 x10^3/uL (0.0-0.7) Basophils # (Auto) 0.1 x10^3/uL (0.0-0.2) Sodium Level 143 mmol/L (136-145) Potassium Level 3.5 mmol/L (3.5-5.1) Chloride Level 102 mmol/L (98-107) Carbon Dioxide Level 29 mmol/L (21-32) Anion Gap 12 (6-14) Blood Urea Nitrogen 11 mg/dL (7-20) Creatinine 0.9 mg/dL (0.6-1.0) Estimated GFR (Cockcroft-Gault) 60.6 BUN/Creatinine Ratio 12 (6-20) Glucose Level 74 mg/dL (70-99) Calcium Level 9.4 mg/dL (8.5-10.1) Total Bilirubin 0.4 mg/dL (0.2-1.0) Aspartate Amino Transf (AST/SGOT) 28 U/L (15-37) Alanine Aminotransferase (ALT/SGPT) 25 U/L (14-59) Alkaline Phosphatase 73 U/L (46-116) Troponin I Quantitative < 0.017 ng/mL (0.000-0.055) Total Protein 7.6 g/dL (6.4-8.2) Albumin 3.3 g/dL (3.4-5.0) Albumin/Globulin Ratio 0.8 (1.0-1.7) VTE Prophylaxis Ordered VTE Prophylaxis Devices: Yes VTE Pharmacological Prophylaxi: Yes Assessment/Plan Assessment/Plan IMPRESSION: 1. Atrial fibrillation with a rapid ventricular response in the setting of acute chronic obstructive pulmonary disease exacerbation. 2. Chronic obstructive pulmonary disease exacerbation, likely secondary to viral bronchitis. 3. 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 4. Hypertension. 5. New diagnosis of lung cancer. - diltiazem drip at this time - home diltiazem and digoxin. - prednisone - azithromycin - per cards: resume metoprolol slowly as her chronic obstructive pulmonary disease exacerbation resolves. - anticoagulation - echocardiogram LAURA BERKOWITZ MD Apr 04, 2018 19:02
[2018-04-04] MEDS ORDERED: AZITHROMYCIN 250 MG TABLET. PO SCH (19:15)
[2018-04-04] MEDS ORDERED: ACETAMINOPHEN 325 MG TABLET. PO PRN (21:15)
[2018-04-04] MEDS ORDERED: oxyCODONE/APAP 5/325 1 TAB TABLET PO PRN (21:15)
[2018-04-04] MEDS: predniSONE 20 MG TABLET PO SCH (22:26)
[2018-04-05] VITALS (7 sets, daily range): BP systolic 124–176; BP diastolic 56–96
--- NOTE | 2018-04-05 07:47 | RAD ---
Portable chest, 04/05/2018: HISTORY: Check PICC placement Comparison is made to a study from 04/03/2018. An aortic valvular prosthesis is in place. The heart size is unchanged. There is calcific plaquing and tortuosity of the thoracic aorta. A right PICC has been inserted extending into the superior vena cava. No acute pulmonary infiltrate is seen. There is no evidence of pleural fluid. IMPRESSION: 1. A right PICC has been inserted in satisfactory position. 2. No other significant change since 04/03/2018. Electronically signed by: Eleuterio Valdivia MD (04/05/2018 7:43 AM) [facility]
[2018-04-05] MEDS: ANTI-COAG MONITOR BY PHARMACY. MC PRN (09:32)
--- NOTE | 2018-04-05 10:24 | PDOC ---
CARDIO Progress Notes Date and Time Date of Service 04/05/2018 Time of Evaluation 1022 Subjective Subjective: No Chest Pain, No Palpitations, No Dizziness Vitals Vitals Vital Signs Date Time Temp Pulse Resp B/P (MAP) Pulse Ox O2 Delivery O2 Flow Rate FiO2 04/05/18 08:00 Nasal Cannula 4.0 04/05/18 07:00 97.6 85 26 149/56 (87) 97 97.6 Weight Weight [ ] Input and Output Intake and Output Intake and Output 04/05/18 07:00 Intake Total 500 ml Output Total 1050 ml Balance -550 ml Intake Oral 500 ml Output Urine Total 1050 ml Physical Exam HEENT: Neck Supple W Full Motion Chest: Symmetric LUNGS: Other (scattered exp wheezing) Heart: irregularly irregular, other (tele: atrial fib with intermittent RVR) Abdomen: Soft N/T Extremities: No Edema Neurology: alert, oriented, follow commands Assessment Assessment 1. Atrial fibrillation with a rapid ventricular response --associated with AECOPD --home BB stopped due to AECOPD --dilt dose has been doubled; OAC with Eliquis --remains intermittently RVR 2. Chronic obstructive pulmonary disease exacerbation --defer to primary service --febrile overnight 3. 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 Hypertension. 5. New diagnosis of lung cancer. 6. bioprosthetic AVR --functioning well on TTE KELLY OLIVA APRN Apr 05, 2018 10:24
[2018-04-05] MEDS: APIXABAN 5 MG TABLET. PO SCH ×2 (10:34→20:43)
[2018-04-05] MEDS: DIGOXIN 125 MCG TABLET. PO SCH (10:35)
[2018-04-05] MEDS: predniSONE 20 MG TABLET PO SCH (10:35)
[2018-04-05] MEDS ORDERED: ONDANSETRON PF 4 MG/2 ML VIAL. IV PRN (10:45)
[2018-04-05] MEDS ORDERED: ACETAMINOPHEN 325 MG TABLET. PO PRN (10:45)
[2018-04-05] MEDS ORDERED: DOCUSATE SODIUM 100 MG CAPSULE. PO PRN (10:45)
[2018-04-05] MEDS ORDERED: traMADol 50 MG TABLET PO PRN (10:45)
[2018-04-05] MEDS ORDERED: MORPHINE SULFATE 2 MG/ML VIAL. IV PRN (10:45)
[2018-04-05] MEDS ORDERED: ALBUTEROL SULFATE 2.5 MG/3 ML NEBU. NEB PRN (10:45)
--- NOTE | 2018-04-05 10:48 | CARD ---
MR#: [id number] Date of Study: 04/05/2018 Ordering Physician: CLAY MANZANO, Referring Physician: LAURA BERKOWITZ, Tech: Corina Jeffries, [facility] APPROVED REPORT EXAM: Two-dimensional and M-mode echocardiogram with Doppler and color Doppler. Other Information Quality : Technically LimitedHR: 102bpm Rhythm : Atrial FibrillationTechnically limited study due to body habitus. INDICATION COPD Surgery/Intervention Status/Post Aortic Valve Replacement: Bioprosthetic Date: 2007 2D DIMENSIONS RVDd2.7 (2.9-3.5cm)IVSd1.6 (0.7-1.1cm) Aortic Root(2D)2.4 (2.0-3.7cm)LVDd3.8 (3.9-5.9cm) LVOT Diameter1.9 (1.8-2.4cm)PWd1.3 (0.7-1.1cm) LVDs2.4 (2.5-4.0cm)FS (%) 35.5 % SV40.1 mlLVEF(%)65.8 (>50%) Aortic Valve AoV Peak Eugenio.236.7cm/sAoV VTI34.6cm AO Peak GR.22.4mmHgLVOT VTI 19.25cm AO Mean GR.14mmHgAI P 1/2 Kmja0ct Mitral Valve MV E Ihmablfr094.4cm/sMV DECEL [id number] MV A Qlwnbtel98.5cm/sE/A Ratio2.7 MVA Planimetry1.50cm2 Tricuspid Valve TR P. Kockutzh768wk/sRAP [id number] TR Peak Gr.[id number] LEFT VENTRICLE The left ventricle is normal size. There is mild concentric left ventricular hypertrophy. The left ve ntricular systolic function is normal. The Ejection Fraction is 60-65%. There is normal LV segmental wall motion. Can not determine diastolic function due to arrhythmia. RIGHT VENTRICLE The right ventricle is normal size. There is normal right ventricular wall thickness. The right ventr icular systolic function is normal. ATRIA The left atrium size is normal. The right atrium size is normal. The interatrial septum is intact wit h no evidence for an atrial septal defect or patent foramen ovale as noted on 2-D or Doppler imaging. AORTIC VALVE Doppler and Color Flow revealed trace aortic regurgitation. There is no significant aortic valvular s tenosis. There is a porcine aortic valve prosthesis. The prosthetic aortic valve appears normal. MITRAL VALVE The mitral valve is thickened but opens well. There is no evidence of mitral valve prolapse. There is no mitral valve stenosis. Doppler and Color Flow revealed no mitral valve regurgitation noted. TRICUSPID VALVE The tricuspid valve is normal in structure and function. Doppler and Color Flow revealed mild tricusp id regurgitation. The PA pressure was estimated at 29 mmHg. There is no tricuspid valve prolapse or v egetation. There is no tricuspid valve stenosis. PULMONIC VALVE The pulmonary valve is normal in structure and function. Doppler and Color Flow revealed no pulmonic valvular regurgitation. There is no pulmonic valvular stenosis. GREAT VESSELS The aortic root is normal in size. The ascending aorta is normal in size. PERICARDIAL EFFUSION There is no evidence of significant pericardial effusion. Critical Notification Critical Value: No <Conclusion> The left ventricular systolic function is normal. The Ejection Fraction is 60-65%. There is normal LV segmental wall motion. Bioprosthetic aortic valve appears well seated and functioning well. Mild tricuspid regurgitation. The PA pressure was estimated at 29 mmHg. There is no evidence of significant pericardial effusion. Signed by : Luis Loomis, Electronically Approved : 04/05/2018 10:47:05
[2018-04-05] MEDS: IPRATRPIUM/ALBUTEROL 0.5/2.5MG 3 ML NEBU. NEB SCH ×3 (13:14→20:42)
--- NOTE | 2018-04-05 13:55 | CONS ---
DATE OF CONSULTATION: 04/05/2018 PULMONARY CONSULTATION ATTENDING PHYSICIAN: Hellen Avila M.D. REASON FOR CONSULTATION: Dyspnea and respiratory failure. HISTORY OF PRESENT ILLNESS: The patient is a 77-year-old female who smoked for 30 years 1 pack per day, quit in 1995. She presented to the hospital with increased shortness of breath. She also had chest pain. She had a cough productive of brown-tinged sputum and had a fever of 100 degrees Fahrenheit on arrival to the ER; in fact, T-max was 101.9. She had no increased lower extremity edema, no headaches, no blurring of vision. No nausea or vomiting, no diarrhea. She had chest pain, which is now resolved. No focal weakness. No rash. Chest x-ray was reviewed by me and there was no definite consolidation seen. The patient was also screened for flu and it was negative. I have been asked to see her for further evaluation. PAST MEDICAL HISTORY: Significant for history of atrial fibrillation, hypertension, hyperlipidemia, valvular insufficiency, history of GERD, diverticulosis, rheumatoid arthritis, chronic renal insufficiency and hypothyroidism. PAST SURGICAL HISTORY: Cholecystectomy, total hip replacement, hysterectomy and colon resection. FAMILY HISTORY: Hypertension. SOCIAL HISTORY: Smoked for 30 years, quit in 1995. REVIEW OF SYSTEMS: PLEASE INSERT SYSTEM REVIEW FOR INITIAL CONSULT. All other systems that were negative were reviewed as well. ALLERGIES: PHENOBARBITAL. MEDICATIONS: Reviewed as listed in the MRAD, including antibiotic and DuoNebs. PHYSICAL EXAMINATION: GENERAL: On examination, she is awake, in no obvious respiratory distress. VITAL SIGNS: Pulse ox 96% on 4 liters initially, now down to 2 liters. T-max of 101.9. Blood pressure on the high side. HEENT: Sclerae nonicteric. NECK: Supple. LUNGS: With diminished breath sounds. CARDIOVASCULAR EXAMINATION: Regular rate. ABDOMEN: Soft, obese. EXTREMITIES: With trace pitting edema. LABORATORY DATA: Labs were reviewed. White cell count is 14.0, hemoglobin 10.6 and platelets are 239,000. BUN and creatinine are normal. Albumin 3.3. Her INR is 1.3. ABGs with a pH of 7.43, pCO2 of 37 and pO2 of 69. IMPRESSION: 1. Acute hypoxic respiratory failure, most likely related to acute exacerbation of chronic obstructive pulmonary disease and acute bronchitis. 2. Chest pain, could be cardiac in origin versus atypical. Clinically, less likely related to thromboembolic disease. We will await further cardiac workup first. Pt on Eliquis 3. Fever, likely related to a viral infection. Influenza screen negative. Currently on antibiotics. RECOMMENDATIONS: 1. Continue with present oxygen with gradual wean. 2. Monitor for further fever, followup cultures. 3. Continue empiric antibiotic. 4. Continue DuoNebs. 5. PFTs as an outpatient. 6. This patient is currently on anticoagulation on Eliquis, which is to continue per PCP. 7. Follow Cardiology recommendations. 8. As discussed above, clinical suspicion for thromboembolic disease is less. The patient is already on Eliquis and no need for further workup. BRET KURTZ MD DR: BERTO/hazel JOB#: [id number] / [id number] HAWK
--- NOTE | 2018-04-05 14:28 | PDOC ---
PROGRESS NOTES Chief Complaint Chief Complaint 1. Atrial fibrillation with a rapid ventricular response in the setting of acute chronic obstructive pulmonary disease exacerbation. 2. Chronic obstructive pulmonary disease exacerbation, likely secondary to bronchitis. 3. 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 4. Hypertension. 5. New diagnosis of lung cancer. morbid obesity acute hypoxic resp failure with COPD, bronchitis plan: fu with card, pulm bb held, cardizem increased to 240mg daily, on dig add duoneb, add levaquin, cont prednisone 60mg daily, gi ppx cough meds check flu NC as needed cont eliquis PTOT History of Present Illness History of Present Illness ROS: no chills, sob or chest pain fever overnight T 101.9. sob, on NC4L, no home o2 cont cough with yellowish thick sputum Vitals Vitals Vital Signs Date Time Temp Pulse Resp B/P (MAP) Pulse Ox O2 Delivery O2 Flow Rate FiO2 04/05/18 13:15 98 Nasal Cannula 2.0 04/05/18 10:36 97.9 97 18 141/81 (101) 97.9 Physical Exam General: Alert, Oriented X3, Cooperative Heart: Regular rate, Normal S1, Normal S2 Lungs: Other (bl decreased bs with mild wheezing) Abdomen: Normal bowel sounds, Soft Extremities: No clubbing, No cyanosis Skin: No rashes Assessment and Plan Assessmemt and Plan Problems Medical Problems: (1) A-fib Status: Acute (2) Acute respiratory failure with hypoxia Status: Acute (3) CHF (congestive heart failure) Status: Acute Comment Review of Relevant I have reviewed the following items sanjay (where applicable) has been applied. Labs Laboratory Tests Test 04/03/18 20:05 04/03/18 20:06 04/03/18 20:55 04/04/18 01:00 O2 Saturation 93 % (92-99) Arterial Blood pH 7.43 (7.35-7.45) Arterial Blood pCO2 at Patient Temp 37 mmHg (35-46) Arterial Blood pO2 at Patient Temp 69 mmHg (65-108) Arterial Blood HCO3 24 mmol/L (21-28) Arterial Blood Base Excess -1 mmol/L (-3-3) Prothrombin Time 15.7 SEC (11.7-14.0) Prothromb Time International Ratio 1.3 (0.8-1.1) Lactic Acid Level 1.0 mmol/L (0.4-2.0) White Blood Count 14.1 x10^3/uL (4.0-11.0) Red Blood Count 3.37 x10^6/uL (3.50-5.40) Hemoglobin 10.8 g/dL (12.0-15.5) Hematocrit 32.0 % (36.0-47.0) Mean Corpuscular Volume 95 fL (79-100) Mean Corpuscular Hemoglobin 32 pg (25-35) Mean Corpuscular Hemoglobin Concent 34 g/dL (31-37) Red Cell Distribution Width 15.1 % (11.5-14.5) Platelet Count 259 x10^3/uL (140-400) Neutrophils (%) (Auto) 88 % (31-73) Lymphocytes (%) (Auto) 5 % (24-48) Monocytes (%) (Auto) 7 % (0-9) Eosinophils (%) (Auto) 1 % (0-3) Basophils (%) (Auto) 0 % (0-3) Neutrophils # (Auto) 12.4 x10^3uL (1.8-7.7) Lymphocytes # (Auto) 0.6 x10^3/uL (1.0-4.8) Monocytes # (Auto) 1.0 x10^3/uL (0.0-1.1) Eosinophils # (Auto) 0.1 x10^3/uL (0.0-0.7) Basophils # (Auto) 0.0 x10^3/uL (0.0-0.2) Segmented Neutrophils % 78 % (35-66) Band Neutrophils % 6 % (0-9) Lymphocytes % 8 % (24-48) Monocytes % 7 % (0-10) Eosinophils % 1 % (0-5) Platelet Estimate Adequate (ADEQUATE) Sodium Level 142 mmol/L (136-145) Potassium Level 3.3 mmol/L (3.5-5.1) Chloride Level 104 mmol/L (98-107) Carbon Dioxide Level 27 mmol/L (21-32) Anion Gap 11 (6-14) Blood Urea Nitrogen 12 mg/dL (7-20) Creatinine 0.9 mg/dL (0.6-1.0) Estimated GFR (Cockcroft-Gault) 60.6 BUN/Creatinine Ratio 13 (6-20) Glucose Level 117 mg/dL (70-99) Calcium Level 9.6 mg/dL (8.5-10.1) Total Bilirubin 0.5 mg/dL (0.2-1.0) Aspartate Amino Transf (AST/SGOT) 30 U/L (15-37) Alanine Aminotransferase (ALT/SGPT) 28 U/L (14-59) Alkaline Phosphatase 77 U/L (46-116) Troponin I Quantitative 0.017 ng/mL (0.000-0.055) 0.019 ng/mL (0.000-0.055) CJ-Nlp-N-Type Natriuretic Peptide 5942 pg/mL (0-449) Total Protein 7.6 g/dL (6.4-8.2) Albumin 3.3 g/dL (3.4-5.0) Albumin/Globulin Ratio 0.8 (1.0-1.7) Test 04/04/18 04:00 White Blood Count 14.2 x10^3/uL (4.0-11.0) Red Blood Count 3.36 x10^6/uL (3.50-5.40) Hemoglobin 10.6 g/dL (12.0-15.5) Hematocrit 32.6 % (36.0-47.0) Mean Corpuscular Volume 97 fL (79-100) Mean Corpuscular Hemoglobin 32 pg (25-35) Mean Corpuscular Hemoglobin Concent 33 g/dL (31-37) Red Cell Distribution Width 14.9 % (11.5-14.5) Platelet Count 239 x10^3/uL (140-400) Neutrophils (%) (Auto) 85 % (31-73) Lymphocytes (%) (Auto) 7 % (24-48) Monocytes (%) (Auto) 7 % (0-9) Eosinophils (%) (Auto) 1 % (0-3) Basophils (%) (Auto) 0 % (0-3) Neutrophils # (Auto) 12.1 x10^3uL (1.8-7.7) Lymphocytes # (Auto) 1.0 x10^3/uL (1.0-4.8) Monocytes # (Auto) 0.9 x10^3/uL (0.0-1.1) Eosinophils # (Auto) 0.1 x10^3/uL (0.0-0.7) Basophils # (Auto) 0.1 x10^3/uL (0.0-0.2) Sodium Level 143 mmol/L (136-145) Potassium Level 3.5 mmol/L (3.5-5.1) Chloride Level 102 mmol/L (98-107) Carbon Dioxide Level 29 mmol/L (21-32) Anion Gap 12 (6-14) Blood Urea Nitrogen 11 mg/dL (7-20) Creatinine 0.9 mg/dL (0.6-1.0) Estimated GFR (Cockcroft-Gault) 60.6 BUN/Creatinine Ratio 12 (6-20) Glucose Level 74 mg/dL (70-99) Calcium Level 9.4 mg/dL (8.5-10.1) Total Bilirubin 0.4 mg/dL (0.2-1.0) Aspartate Amino Transf (AST/SGOT) 28 U/L (15-37) Alanine Aminotransferase (ALT/SGPT) 25 U/L (14-59) Alkaline Phosphatase 73 U/L (46-116) Troponin I Quantitative < 0.017 ng/mL (0.000-0.055) Total Protein 7.6 g/dL (6.4-8.2) Albumin 3.3 g/dL (3.4-5.0) Albumin/Globulin Ratio 0.8 (1.0-1.7) Medications Current Medications Diltiazem HCl 125 mg/Dextrose 125 ml @ 5 mls/hr 1X ONCE IV Last administered on 04/03/18at 00:30; Start 04/03/18 at 22:00; Stop 04/04/18 at 22:59; Status DC Ceftriaxone Sodium 50 ml @ 100 mls/hr 1X ONCE IV Last administered on at 21:54; Start 04/03/18 at 22:00; Stop 04/03/18 at 22:29; Status DC Azithromycin (Zithromax) 500 mg 1X ONCE PO Last administered on 04/03/18at 21: 54; Start 04/03/18 at 22:00; Stop 04/03/18 at 22:01; Status DC Ondansetron HCl (Zofran) 4 mg PRN Q8HRS PRN IV NAUSEA/VOMITING 1ST CHOICE; Start 04/03/18 at 21:30; Stop 04/04/18 at 21:29; Status DC Sodium Chloride 1,000 ml @ 75 mls/hr [id number] IV ; Start 04/03/18 at 22:00; Stop 04/03/18 at 22:00; Status DC Furosemide (Lasix) 20 mg 1X ONCE IVP Last administered on 04/03/18at 21:57; Start 04/03/18 at 22:00; Stop 04/03/18 at 22:01; Status DC Apixaban (Eliquis) 5 mg ONCE ONCE PO Last administered on 04/03/18at 21:58; Start 04/03/18 at 22:00; Stop 04/03/18 at 22:01; Status DC Potassium Chloride (Klor-Con) 40 meq 1X ONCE PO Last administered on at 22:10; Start 04/03/18 at 22:30; Stop 04/03/18 at 22:31; Status DC Influenza Virus Vaccine (Afluria Trivalent [id number] Syringe) 0.5 ml ONCE ONCE VAX IM Last administered on 04/04/18at 08:23; Start 04/04/18 at 09:00; Stop at 09:01; Status DC Diltiazem HCl (Cardizem 24hr Cd) 240 mg DAILY PO Last administered on at 10:35; Start 04/04/18 at 13:00 Digoxin (Lanoxin) 125 mcg DAILY PO Last administered on 04/05/18at 10:35; Start 04/04/18 at 13:00 Apixaban (Eliquis) 5 mg BID PO Last administered on 04/05/18at 10:34; Start at 13:00 Info (Anti-Coagulation Monitoring By Pharmacy) 1 each PRN DAILY PRN MC SEE COMMENTS Last administered on 04/05/18at 09:32; Start 04/04/18 at 15:00 Azithromycin (Zithromax) 250 mg DAILY PO Last administered on 04/04/18at 22:27; Start 04/04/18 at 19:15; Stop 04/05/18 at 10:34; Status DC Prednisone (Prednisone) 60 mg DAILY PO Last administered on 04/05/18at 10:35; Start 04/04/18 at 19:15 Oxycodone/ Acetaminophen (Percocet 5/325) 1 tab PRN BID PRN PO SEVERE PAIN Last administered on 04/04/18at 22:28; Start 04/04/18 at 21:15 Acetaminophen (Tylenol) 650 mg PRN Q6HRS PRN PO MILD PAIN / TEMP; Start at 21:15 Lactobacillus Rhamnosus (Culturelle) 1 cap BID PO ; Start 04/05/18 at 21:00 Acetaminophen (Tylenol) 650 mg PRN Q6HRS PRN PO FEVER; Start 04/05/18 at 10:45 Ondansetron HCl (Zofran) 4 mg PRN Q6HRS PRN IV NAUSEA/VOMITING; Start 04/05/18 at 10:45 Morphine Sulfate (Morphine Sulfate) 2 mg PRN Q2HR PRN IV MODERATE TO SEVERE PAIN; Start 04/05/18 at 10:45 Tramadol HCl (Ultram) 50 mg PRN Q6HRS PRN PO MILD PAIN; Start 04/05/18 at 10:45 Docusate Sodium (Colace) 100 mg PRN DAILY PRN PO CONSTIPATION; Start 04/05/18 at 10:45 Albuterol/ Ipratropium (Duoneb) 3 ml RTQID NEB Last administered on 04/05/18at 13:14; Start 04/05/18 at 12:00 Albuterol Sulfate (Ventolin Neb Soln) 2.5 mg PRN Q2HR PRN NEB SHORTNESS OF BREATH; Start 04/05/18 at 10:45 Guaifenesin (Mucinex) 600 mg BID PO Last administered on 04/05/18at 11:17; Start 04/05/18 at 11:00 Levofloxacin/ Dextrose 100 ml @ 100 mls/hr Q24H IV Last administered on at 11:18; Start 04/05/18 at 11:00 Active Scripts Active Lanoxin (Digoxin) 125 Mcg Tablet 125 Mcg PO DAILY Klor-Con M10 (Potassium Chloride) 10 Meq Tab.er.prt 10 Meq PO DAILYWBKFT Eliquis (Apixaban) 5 Mg Tablet 5 Mg PO BID Reported Methotrexate (Methotrexate Sodium) 2.5 Mg Tablet 5 Tab PO WEEKLY ON THURSDAY Folic Acid 1 Mg Tablet 1 Tab PO DAILY Metoprolol Tartrate 100 Mg Tablet 150 Mg PO DAILY Cardizem Tablet (Diltiazem Hcl) 120 Mg Tablet 120 Mg PO DAILY Zoloft (Sertraline Hcl) 50 Mg Tablet 1 Tab PO DAILY Furosemide 20 Mg Tablet 20 Mg PO DAILY Sulfasalazine 500 Mg Tablet 1,500 Mg PO BID Synthroid (Levothyroxine Sodium) 100 Mcg Tablet 100 Mcg PO DAILYAC Plaquenil (Hydroxychloroquine Sulfate) 200 Mg Tablet 200 Mg PO DAILY Vitals/I & O Vital Sign - Last 24 Hours 04/04/18 04/04/18 04/04/18 04/04/18 15:00 19:40 20:00 22:28 Temp 99.0 100.2 99.0 100.2 Pulse 103 122 Resp 39 28 B/P (MAP) 168/86 (113) 169/74 (105) Pulse Ox 96 97 97 O2 Delivery Nasal Cannula Nasal Cannula Nasal Cannula Nasal Cannula O2 Flow Rate 4.0 2.0 4.0 2.0 04/04/18 04/04/18 04/05/18 04/05/18 23:12 23:28 03:50 07:00 Temp 101.9 97.9 97.6 101.9 97.9 97.6 Pulse 121 86 85 Resp 27 22 26 26 B/P (MAP) 197/98 (131) 142/75 (97) 149/56 (87) Pulse Ox 96 93 93 97 O2 Delivery Nasal Cannula Nasal Cannula Nasal Cannula Nasal Cannula O2 Flow Rate 2.0 4.0 2.0 5.0 04/05/18 04/05/18 04/05/18 04/05/18 08:00 10:35 10:35 10:36 Temp 97.9 97.9 Pulse 85 85 97 Resp 18 B/P (MAP) 149/56 149/56 141/81 (101) Pulse Ox 96 O2 Delivery Nasal Cannula Nasal Cannula O2 Flow Rate 4.0 5.0 04/05/18 13:15 Pulse Ox 98 O2 Delivery Nasal Cannula O2 Flow Rate 2.0 Intake and Output 04/04/18 04/04/18 04/05/18 15:00 23:00 07:00 Intake Total 500 ml Output Total 500 ml 250 ml 300 ml Balance -500 ml -250 ml 200 ml NATALIIA PARKER MD Apr 05, 2018 14:28
[2018-04-05 15:39] LABS: INFLUENZA A PATIENT NEGATIVE (NEGATIVE); INFLUENZA B PATIENT NEGATIVE (NEGATIVE)
[2018-04-05] MEDS: LACTOBACILLUS RHAMNOSUS GG 1 CAPSULE. PO SCH (20:42)
[2018-04-05] MEDS: FAMOTIDINE 20 MG TABLET. PO SCH (20:43)
[2018-04-06] VITALS (7 sets, daily range): BP systolic 121–183; BP diastolic 68–90
[2018-04-06 05:30] LABS: BASO % 0 % (0-3); EOS % 0 % (0-3); HEMATOCRIT 31.4 % (36.0-47.0); HEMOGLOBIN 10.5 g/dL (12.0-15.5); LYMPH # 0.8 x10^3/uL (1.0-4.8); LYMPH % 5 % (24-48); MEAN CORPUSCULAR HEMOGLOBIN 32 pg (25-35); MEAN CORPUSCULAR HGB CONC 34 g/dL (31-37); MEAN CORPUSCULAR VOLUME 95 fL (79-100); MONO # 1.1 x10^3/uL (0.0-1.1); MONO % 7 % (0-9); NEUT # 13.3 x10^3uL (1.8-7.7); NEUT % 88 % (31-73); PLATELET COUNT 261 x10^3/uL (140-400); RED CELL DISTRIBUTION WIDTH 15.3 % (11.5-14.5); WHITE BLOOD COUNT 15.2 x10^3/uL (4.0-11.0)
[2018-04-06 05:42] LABS: CALCIUM 9.5 mg/dL (8.5-10.1); CREATININE 1.1 mg/dL (0.6-1.0)
[2018-04-06] MEDS: IPRATRPIUM/ALBUTEROL 0.5/2.5MG 3 ML NEBU. NEB SCH ×4 (07:16→20:26)
[2018-04-06] MEDS: APIXABAN 5 MG TABLET. PO SCH ×2 (09:08→21:31)
[2018-04-06] MEDS: predniSONE 20 MG TABLET PO SCH (09:08)
[2018-04-06] MEDS: LACTOBACILLUS RHAMNOSUS GG 1 CAPSULE. PO SCH ×2 (09:08→21:31)
[2018-04-06] MEDS: DIGOXIN 125 MCG TABLET. PO SCH (09:09)
[2018-04-06] MEDS ORDERED: DIGOXIN IV 500 MCG/2 ML AMPUL. IV ONE (10:30)
--- NOTE | 2018-04-06 10:35 | PDOC ---
CARDIO Progress Notes Date and Time Date of Service 04/05/2018 Time of Evaluation 1034 Subjective Subjective: No Chest Pain, No Palpitations, No Dizziness Vitals Vitals Vital Signs Date Time Temp Pulse Resp B/P (MAP) Pulse Ox O2 Delivery O2 Flow Rate FiO2 04/06/18 10:01 98.0 113 18 171/71 (104) 98 Nasal Cannula 2.0 98.0 Weight Weight [ ] Input and Output Intake and Output Intake and Output 04/06/18 07:00 Intake Total 1280 ml Output Total 2500 ml Balance -1220 ml Intake Oral 1280 ml Output Urine Total 2500 ml Laboratory Labs Laboratory Tests Test 04/05/18 14:50 04/06/18 05:15 Influenza Type A Antigen Negative (NEGATIVE) Influenza Type B Antigen Negative (NEGATIVE) White Blood Count 15.2 x10^3/uL (4.0-11.0) Red Blood Count 3.30 x10^6/uL (3.50-5.40) Hemoglobin 10.5 g/dL (12.0-15.5) Hematocrit 31.4 % (36.0-47.0) Mean Corpuscular Volume 95 fL (79-100) Mean Corpuscular Hemoglobin 32 pg (25-35) Mean Corpuscular Hemoglobin Concent 34 g/dL (31-37) Red Cell Distribution Width 15.3 % (11.5-14.5) Platelet Count 261 x10^3/uL (140-400) Neutrophils (%) (Auto) 88 % (31-73) Lymphocytes (%) (Auto) 5 % (24-48) Monocytes (%) (Auto) 7 % (0-9) Eosinophils (%) (Auto) 0 % (0-3) Basophils (%) (Auto) 0 % (0-3) Neutrophils # (Auto) 13.3 x10^3uL (1.8-7.7) Lymphocytes # (Auto) 0.8 x10^3/uL (1.0-4.8) Monocytes # (Auto) 1.1 x10^3/uL (0.0-1.1) Eosinophils # (Auto) 0.0 x10^3/uL (0.0-0.7) Basophils # (Auto) 0.0 x10^3/uL (0.0-0.2) Sodium Level 141 mmol/L (136-145) Potassium Level 4.0 mmol/L (3.5-5.1) Chloride Level 103 mmol/L (98-107) Carbon Dioxide Level 28 mmol/L (21-32) Anion Gap 10 (6-14) Blood Urea Nitrogen 30 mg/dL (7-20) Creatinine 1.1 mg/dL (0.6-1.0) Estimated GFR (Cockcroft-Gault) 48.0 Glucose Level 131 mg/dL (70-99) Calcium Level 9.5 mg/dL (8.5-10.1) Physical Exam HEENT: Neck Supple W Full Motion Chest: Symmetric LUNGS: Other (exp wheezing) Heart: irregularly irregular, other (tele: atrial fib with RVR) Abdomen: Soft N/T Extremities: No Edema Neurology: alert, oriented, follow commands Assessment Assessment 1. Atrial fibrillation with a rapid ventricular response --remains tachycardic overnight --associated with AECOPD --home BB stopped due to AECOPD --increase dilt to 360 mg starting tomorrow; IV dig X 1 @ 0.065 due to low Cr CL; OAC with Eliquis 2. Chronic obstructive pulmonary disease exacerbation --defer to primary service 3. 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 Hypertension -not controlled and BB held due to wheezing --add BID hydralazine 5. New diagnosis of lung cancer. 6. bioprosthetic AVR --functioning well on TTE KELLY OLIVA APRN Apr 06, 2018 10:35
--- NOTE | 2018-04-06 10:38 | PDOC ---
PULMONARY PROGRESS NOTES Subjective no soa/ mild wheezing Vitals Vital Signs Date Time Temp Pulse Resp B/P (MAP) Pulse Ox O2 Delivery O2 Flow Rate FiO2 04/06/18 10:01 98.0 113 18 171/71 (104) 98 Nasal Cannula 2.0 98.0 ROS: No Chest Pain General: Alert, No acute distress Lungs: Wheezing (faint) Cardiovascular: S1 Abdomen: Soft Neuro Exam: Alert Extremities: No Edema Skin: Warm Labs Laboratory Tests Test 04/05/18 14:50 04/06/18 05:15 Influenza Type A Antigen Negative (NEGATIVE) Influenza Type B Antigen Negative (NEGATIVE) White Blood Count 15.2 x10^3/uL (4.0-11.0) Red Blood Count 3.30 x10^6/uL (3.50-5.40) Hemoglobin 10.5 g/dL (12.0-15.5) Hematocrit 31.4 % (36.0-47.0) Mean Corpuscular Volume 95 fL (79-100) Mean Corpuscular Hemoglobin 32 pg (25-35) Mean Corpuscular Hemoglobin Concent 34 g/dL (31-37) Red Cell Distribution Width 15.3 % (11.5-14.5) Platelet Count 261 x10^3/uL (140-400) Neutrophils (%) (Auto) 88 % (31-73) Lymphocytes (%) (Auto) 5 % (24-48) Monocytes (%) (Auto) 7 % (0-9) Eosinophils (%) (Auto) 0 % (0-3) Basophils (%) (Auto) 0 % (0-3) Neutrophils # (Auto) 13.3 x10^3uL (1.8-7.7) Lymphocytes # (Auto) 0.8 x10^3/uL (1.0-4.8) Monocytes # (Auto) 1.1 x10^3/uL (0.0-1.1) Eosinophils # (Auto) 0.0 x10^3/uL (0.0-0.7) Basophils # (Auto) 0.0 x10^3/uL (0.0-0.2) Sodium Level 141 mmol/L (136-145) Potassium Level 4.0 mmol/L (3.5-5.1) Chloride Level 103 mmol/L (98-107) Carbon Dioxide Level 28 mmol/L (21-32) Anion Gap 10 (6-14) Blood Urea Nitrogen 30 mg/dL (7-20) Creatinine 1.1 mg/dL (0.6-1.0) Estimated GFR (Cockcroft-Gault) 48.0 Glucose Level 131 mg/dL (70-99) Calcium Level 9.5 mg/dL (8.5-10.1) Laboratory Tests Test 04/05/18 14:50 04/06/18 05:15 Influenza Type A Antigen Negative (NEGATIVE) Influenza Type B Antigen Negative (NEGATIVE) White Blood Count 15.2 x10^3/uL (4.0-11.0) Red Blood Count 3.30 x10^6/uL (3.50-5.40) Hemoglobin 10.5 g/dL (12.0-15.5) Hematocrit 31.4 % (36.0-47.0) Mean Corpuscular Volume 95 fL (79-100) Mean Corpuscular Hemoglobin 32 pg (25-35) Mean Corpuscular Hemoglobin Concent 34 g/dL (31-37) Red Cell Distribution Width 15.3 % (11.5-14.5) Platelet Count 261 x10^3/uL (140-400) Neutrophils (%) (Auto) 88 % (31-73) Lymphocytes (%) (Auto) 5 % (24-48) Monocytes (%) (Auto) 7 % (0-9) Eosinophils (%) (Auto) 0 % (0-3) Basophils (%) (Auto) 0 % (0-3) Neutrophils # (Auto) 13.3 x10^3uL (1.8-7.7) Lymphocytes # (Auto) 0.8 x10^3/uL (1.0-4.8) Monocytes # (Auto) 1.1 x10^3/uL (0.0-1.1) Eosinophils # (Auto) 0.0 x10^3/uL (0.0-0.7) Basophils # (Auto) 0.0 x10^3/uL (0.0-0.2) Sodium Level 141 mmol/L (136-145) Potassium Level 4.0 mmol/L (3.5-5.1) Chloride Level 103 mmol/L (98-107) Carbon Dioxide Level 28 mmol/L (21-32) Anion Gap 10 (6-14) Blood Urea Nitrogen 30 mg/dL (7-20) Creatinine 1.1 mg/dL (0.6-1.0) Estimated GFR (Cockcroft-Gault) 48.0 Glucose Level 131 mg/dL (70-99) Calcium Level 9.5 mg/dL (8.5-10.1) Medications Active Scripts Medications Dose Route/Sig Max Daily Dose Days Date Category Methotrexate (Methotrexate Sodium) 2.5 Mg Tablet 5 Tab PO WEEKLY ON Thursday02/22/18 Reported Folic Acid 1 Mg Tablet 1 Tab PO DAILY 02/22/18 Reported Metoprolol Tartrate 100 Mg Tablet 150 Mg PO DAILY 12/11/17 Reported Lanoxin (Digoxin) 125 Mcg Tablet 125 Mcg PO DAILY 06/25/16 Rx Cardizem Tablet (Diltiazem Hcl) 120 Mg Tablet 120 Mg PO DAILY 06/22/16 Reported Zoloft (Sertraline Hcl) 50 Mg Tablet 1 Tab PO DAILY 06/22/16 Reported Furosemide 20 Mg Tablet 20 Mg PO DAILY 02/05/16 Reported Klor-Con M10 (Potassium Chloride) 10 Meq Tab.er.prt 10 Meq PO DAILYWBKFT 10/09/15 Rx Eliquis (Apixaban) 5 Mg Tablet 5 Mg PO BID 10/09/15 Rx Sulfasalazine 500 Mg Tablet 1,500 Mg PO BID 09/13/14 Reported Synthroid (Levothyroxine Sodium) 100 Mcg Tablet 100 Mcg PO DAILYAC 09/13/14 Reported Plaquenil (Hydroxychloroquine Sulfate) 200 Mg Tablet 200 Mg PO DAILY 05/08/14 Reported Impression . 1. Acute hypoxic respiratory failure, related to acute exacerbation of chronic obstructive pulmonary disease and acute bronchitis. 2. Chest pain, could be cardiac in origin versus atypical. Clinically, less likely related to thromboembolic disease. We will await further cardiac workup first. Pt on Eliquis 3. Fever, likely related to a viral infection. Influenza screen negative. Currently on antibiotics. Plan . 1. Continue with present oxygen with gradual wean. 2. Monitor for further fever, followup cultures. 3. Continue empiric antibiotic. 4. Continue DuoNebs. 5. PFTs as an outpatient. 6. This patient is currently on anticoagulation on Eliquis, which is to continue per PCP. 7. Follow Cardiology recommendations. 8. As discussed above, clinical suspicion for thromboembolic disease is less. The patient is already on Eliquis and no need for further workup. BRET KURTZ MD Apr 06, 2018 10:38
[2018-04-06] MEDS: hydrALAZINE 25 MG TABLET PO SCH ×2 (11:36→21:31)
--- NOTE | 2018-04-06 13:22 | PDOC ---
PROGRESS NOTES Chief Complaint Chief Complaint 1. Atrial fibrillation with a rapid ventricular response in the setting of acute chronic obstructive pulmonary disease exacerbation. 2. Chronic obstructive pulmonary disease exacerbation, likely secondary to bronchitis. 3. 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 4. Hypertension. 5. New diagnosis of lung cancer. morbid obesity acute hypoxic resp failure with COPD, bronchitis plan: fu with card, pulm bb held, cardizem increased to 360mg daily, on dig hydralazine added as per card add duoneb, add levaquin, cont prednisone 60mg daily, gi ppx cough meds check flu neg NC as needed cont eliquis PTOT History of Present Illness History of Present Illness ROS: no chills, sob or chest pain fever overnight T 101.9 04/05. afebrile now sob, on NC2 L from 4L, no home o2 cont cough with yellowish thick sputum still tachycardia with Afib at 110s Vitals Vitals Vital Signs Date Time Temp Pulse Resp B/P (MAP) Pulse Ox O2 Delivery O2 Flow Rate FiO2 04/06/18 11:36 113 171/71 04/06/18 10:01 98.0 18 98 Nasal Cannula 2.0 98.0 Physical Exam General: Alert, Oriented X3, Cooperative Heart: Regular rate, Normal S1, Normal S2 Lungs: Wheezing (faint) Abdomen: Normal bowel sounds, Soft Extremities: No clubbing, No cyanosis Skin: No rashes Labs LABS Laboratory Tests Test 04/05/18 14:50 04/06/18 05:15 Influenza Type A Antigen Negative (NEGATIVE) Influenza Type B Antigen Negative (NEGATIVE) White Blood Count 15.2 x10^3/uL (4.0-11.0) Red Blood Count 3.30 x10^6/uL (3.50-5.40) Hemoglobin 10.5 g/dL (12.0-15.5) Hematocrit 31.4 % (36.0-47.0) Mean Corpuscular Volume 95 fL (79-100) Mean Corpuscular Hemoglobin 32 pg (25-35) Mean Corpuscular Hemoglobin Concent 34 g/dL (31-37) Red Cell Distribution Width 15.3 % (11.5-14.5) Platelet Count 261 x10^3/uL (140-400) Neutrophils (%) (Auto) 88 % (31-73) Lymphocytes (%) (Auto) 5 % (24-48) Monocytes (%) (Auto) 7 % (0-9) Eosinophils (%) (Auto) 0 % (0-3) Basophils (%) (Auto) 0 % (0-3) Neutrophils # (Auto) 13.3 x10^3uL (1.8-7.7) Lymphocytes # (Auto) 0.8 x10^3/uL (1.0-4.8) Monocytes # (Auto) 1.1 x10^3/uL (0.0-1.1) Eosinophils # (Auto) 0.0 x10^3/uL (0.0-0.7) Basophils # (Auto) 0.0 x10^3/uL (0.0-0.2) Sodium Level 141 mmol/L (136-145) Potassium Level 4.0 mmol/L (3.5-5.1) Chloride Level 103 mmol/L (98-107) Carbon Dioxide Level 28 mmol/L (21-32) Anion Gap 10 (6-14) Blood Urea Nitrogen 30 mg/dL (7-20) Creatinine 1.1 mg/dL (0.6-1.0) Estimated GFR (Cockcroft-Gault) 48.0 Glucose Level 131 mg/dL (70-99) Calcium Level 9.5 mg/dL (8.5-10.1) Magnesium Level 2.1 mg/dL (1.8-2.4) Thyroid Stimulating Hormone (TSH) 0.698 uIU/mL (0.358-3.74) Assessment and Plan Assessmemt and Plan Problems Medical Problems: (1) A-fib Status: Acute (2) Acute respiratory failure with hypoxia Status: Acute (3) CHF (congestive heart failure) Status: Acute Comment Review of Relevant I have reviewed the following items sanjay (where applicable) has been applied. Labs Laboratory Tests Test 04/05/18 14:50 04/06/18 05:15 Influenza Type A Antigen Negative (NEGATIVE) Influenza Type B Antigen Negative (NEGATIVE) White Blood Count 15.2 x10^3/uL (4.0-11.0) Red Blood Count 3.30 x10^6/uL (3.50-5.40) Hemoglobin 10.5 g/dL (12.0-15.5) Hematocrit 31.4 % (36.0-47.0) Mean Corpuscular Volume 95 fL (79-100) Mean Corpuscular Hemoglobin 32 pg (25-35) Mean Corpuscular Hemoglobin Concent 34 g/dL (31-37) Red Cell Distribution Width 15.3 % (11.5-14.5) Platelet Count 261 x10^3/uL (140-400) Neutrophils (%) (Auto) 88 % (31-73) Lymphocytes (%) (Auto) 5 % (24-48) Monocytes (%) (Auto) 7 % (0-9) Eosinophils (%) (Auto) 0 % (0-3) Basophils (%) (Auto) 0 % (0-3) Neutrophils # (Auto) 13.3 x10^3uL (1.8-7.7) Lymphocytes # (Auto) 0.8 x10^3/uL (1.0-4.8) Monocytes # (Auto) 1.1 x10^3/uL (0.0-1.1) Eosinophils # (Auto) 0.0 x10^3/uL (0.0-0.7) Basophils # (Auto) 0.0 x10^3/uL (0.0-0.2) Sodium Level 141 mmol/L (136-145) Potassium Level 4.0 mmol/L (3.5-5.1) Chloride Level 103 mmol/L (98-107) Carbon Dioxide Level 28 mmol/L (21-32) Anion Gap 10 (6-14) Blood Urea Nitrogen 30 mg/dL (7-20) Creatinine 1.1 mg/dL (0.6-1.0) Estimated GFR (Cockcroft-Gault) 48.0 Glucose Level 131 mg/dL (70-99) Calcium Level 9.5 mg/dL (8.5-10.1) Magnesium Level 2.1 mg/dL (1.8-2.4) Thyroid Stimulating Hormone (TSH) 0.698 uIU/mL (0.358-3.74) Laboratory Tests Test 04/05/18 14:50 04/06/18 05:15 Influenza Type A Antigen Negative (NEGATIVE) Influenza Type B Antigen Negative (NEGATIVE) White Blood Count 15.2 x10^3/uL (4.0-11.0) Red Blood Count 3.30 x10^6/uL (3.50-5.40) Hemoglobin 10.5 g/dL (12.0-15.5) Hematocrit 31.4 % (36.0-47.0) Mean Corpuscular Volume 95 fL (79-100) Mean Corpuscular Hemoglobin 32 pg (25-35) Mean Corpuscular Hemoglobin Concent 34 g/dL (31-37) Red Cell Distribution Width 15.3 % (11.5-14.5) Platelet Count 261 x10^3/uL (140-400) Neutrophils (%) (Auto) 88 % (31-73) Lymphocytes (%) (Auto) 5 % (24-48) Monocytes (%) (Auto) 7 % (0-9) Eosinophils (%) (Auto) 0 % (0-3) Basophils (%) (Auto) 0 % (0-3) Neutrophils # (Auto) 13.3 x10^3uL (1.8-7.7) Lymphocytes # (Auto) 0.8 x10^3/uL (1.0-4.8) Monocytes # (Auto) 1.1 x10^3/uL (0.0-1.1) Eosinophils # (Auto) 0.0 x10^3/uL (0.0-0.7) Basophils # (Auto) 0.0 x10^3/uL (0.0-0.2) Sodium Level 141 mmol/L (136-145) Potassium Level 4.0 mmol/L (3.5-5.1) Chloride Level 103 mmol/L (98-107) Carbon Dioxide Level 28 mmol/L (21-32) Anion Gap 10 (6-14) Blood Urea Nitrogen 30 mg/dL (7-20) Creatinine 1.1 mg/dL (0.6-1.0) Estimated GFR (Cockcroft-Gault) 48.0 Glucose Level 131 mg/dL (70-99) Calcium Level 9.5 mg/dL (8.5-10.1) Magnesium Level 2.1 mg/dL (1.8-2.4) Thyroid Stimulating Hormone (TSH) 0.698 uIU/mL (0.358-3.74) Medications Current Medications Diltiazem HCl 125 mg/Dextrose 125 ml @ 5 mls/hr 1X ONCE IV Last administered on 04/03/18at 00:30; Start 04/03/18 at 22:00; Stop 04/04/18 at 22:59; Status DC Ceftriaxone Sodium 50 ml @ 100 mls/hr 1X ONCE IV Last administered on at 21:54; Start 04/03/18 at 22:00; Stop 04/03/18 at 22:29; Status DC Azithromycin (Zithromax) 500 mg 1X ONCE PO Last administered on 04/03/18at 21: 54; Start 04/03/18 at 22:00; Stop 04/03/18 at 22:01; Status DC Ondansetron HCl (Zofran) 4 mg PRN Q8HRS PRN IV NAUSEA/VOMITING 1ST CHOICE; Start 04/03/18 at 21:30; Stop 04/04/18 at 21:29; Status DC Sodium Chloride 1,000 ml @ 75 mls/hr [id number] IV ; Start 04/03/18 at 22:00; Stop 04/03/18 at 22:00; Status DC Furosemide (Lasix) 20 mg 1X ONCE IVP Last administered on 04/03/18at 21:57; Start 04/03/18 at 22:00; Stop 04/03/18 at 22:01; Status DC Apixaban (Eliquis) 5 mg ONCE ONCE PO Last administered on 04/03/18at 21:58; Start 04/03/18 at 22:00; Stop 04/03/18 at 22:01; Status DC Potassium Chloride (Klor-Con) 40 meq 1X ONCE PO Last administered on at 22:10; Start 04/03/18 at 22:30; Stop 04/03/18 at 22:31; Status DC Influenza Virus Vaccine (Afluria Trivalent [id number] Syringe) 0.5 ml ONCE ONCE VAX IM Last administered on 04/04/18at 08:23; Start 04/04/18 at 09:00; Stop at 09:01; Status DC Diltiazem HCl (Cardizem 24hr Cd) 240 mg DAILY PO Last administered on at 09:09; Start 04/04/18 at 13:00; Stop 04/06/18 at 10:35; Status DC Digoxin (Lanoxin) 125 mcg DAILY PO Last administered on 04/06/18 09:09; Start 04/04/18 at 13:00 Apixaban (Eliquis) 5 mg BID PO Last administered on 04/06/18at 09:08; Start at 13:00 Info (Anti-Coagulation Monitoring By Pharmacy) 1 each PRN DAILY PRN MC SEE COMMENTS Last administered on 04/05/18at 09:32; Start 04/04/18 at 15:00 Azithromycin (Zithromax) 250 mg DAILY PO Last administered on 04/04/18at 22:27; Start 04/04/18 at 19:15; Stop 04/05/18 at 10:34; Status DC Prednisone (Prednisone) 60 mg DAILY PO Last administered on 04/06/18 09:08; Start 04/04/18 at 19:15 Oxycodone/ Acetaminophen (Percocet 5/325) 1 tab PRN BID PRN PO SEVERE PAIN Last administered on 04/04/18at 22:28; Start 04/04/18 at 21:15 Acetaminophen (Tylenol) 650 mg PRN Q6HRS PRN PO MILD PAIN / TEMP; Start at 21:15 Lactobacillus Rhamnosus (Culturelle) 1 cap BID PO Last administered on at 09:08; Start 04/05/18 at 21:00 Acetaminophen (Tylenol) 650 mg PRN Q6HRS PRN PO FEVER; Start 04/05/18 at 10:45 Ondansetron HCl (Zofran) 4 mg PRN Q6HRS PRN IV NAUSEA/VOMITING; Start 04/05/18 at 10:45 Morphine Sulfate (Morphine Sulfate) 2 mg PRN Q2HR PRN IV MODERATE TO SEVERE PAIN; Start 04/05/18 at 10:45 Tramadol HCl (Ultram) 50 mg PRN Q6HRS PRN PO MILD PAIN; Start 04/05/18 at 10:45 Docusate Sodium (Colace) 100 mg PRN DAILY PRN PO CONSTIPATION; Start 04/05/18 at 10:45 Albuterol/ Ipratropium (Duoneb) 3 ml RTQID NEB Last administered on 04/06/18at 11:33; Start 04/05/18 at 12:00 Albuterol Sulfate (Ventolin Neb Soln) 2.5 mg PRN Q2HR PRN NEB SHORTNESS OF BREATH; Start 04/05/18 at 10:45 Guaifenesin (Mucinex) 600 mg BID PO Last administered on 04/06/18at 09:08; Start 04/05/18 at 11:00 Levofloxacin/ Dextrose 100 ml @ 100 mls/hr Q24H IV Last administered on at 11:37; Start 04/05/18 at 11:00 Famotidine (Pepcid) 20 mg QHS PO Last administered on 04/05/18at 20:43; Start 04/05/18 at 21:00 Diltiazem HCl (Cardizem 24hr Cd) 360 mg DAILY PO ; Start 04/07/18 at 09:00 Digoxin (Lanoxin) 0.0625 mcg 1X ONCE IV Last administered on 04/06/18at 11:36; Start 04/06/18 at 10:30; Stop 04/06/18 at 10:46; Status DC Hydralazine HCl (Apresoline) 25 mg BID PO Last administered on 04/06/18at 11:36 ; Start 04/06/18 at 10:45 Active Scripts Active Lanoxin (Digoxin) 125 Mcg Tablet 125 Mcg PO DAILY Klor-Con M10 (Potassium Chloride) 10 Meq Tab.er.prt 10 Meq PO DAILYWBKFT Eliquis (Apixaban) 5 Mg Tablet 5 Mg PO BID Reported Methotrexate (Methotrexate Sodium) 2.5 Mg Tablet 5 Tab PO WEEKLY ON THURSDAY Folic Acid 1 Mg Tablet 1 Tab PO DAILY Metoprolol Tartrate 100 Mg Tablet 150 Mg PO DAILY Cardizem Tablet (Diltiazem Hcl) 120 Mg Tablet 120 Mg PO DAILY Zoloft (Sertraline Hcl) 50 Mg Tablet 1 Tab PO DAILY Furosemide 20 Mg Tablet 20 Mg PO DAILY Sulfasalazine 500 Mg Tablet 1,500 Mg PO BID Synthroid (Levothyroxine Sodium) 100 Mcg Tablet 100 Mcg PO DAILYAC Plaquenil (Hydroxychloroquine Sulfate) 200 Mg Tablet 200 Mg PO DAILY Vitals/I & O Vital Sign - Last 24 Hours 04/05/18 04/05/18 04/05/18 04/05/18 14:31 15:27 18:38 19:50 Temp 97.8 97.4 97.8 97.4 Pulse 98 108 Resp 18 24 B/P (MAP) 144/80 (101) 124/68 (86) Pulse Ox 96 98 96 O2 Delivery Nasal Cannula Nasal Cannula Nasal Cannula Nasal Cannula O2 Flow Rate 5.0 2.0 5.0 2.0 04/05/18 04/05/18 04/05/18 04/06/18 20:42 23:02 23:25 03:28 Temp 98.2 98.5 98.2 98.5 Pulse 110 95 86 Resp 18 16 B/P (MAP) 176/96 (122) 140/74 (96) 158/72 (100) Pulse Ox 96 96 O2 Delivery Nasal Cannula Nasal Cannula Nasal Cannula O2 Flow Rate 2.0 2.0 2.0 04/06/18 04/06/18 04/06/18 04/06/18 07:04 07:15 07:15 08:00 Temp 98.0 98.0 Pulse 76 Resp 16 B/P (MAP) 158/83 (108) Pulse Ox 97 98 O2 Delivery Nasal Cannula Nasal Cannula Nasal Cannula Nasal Cannula O2 Flow Rate 2.0 2.0 2.0 2.0 04/06/18 04/06/18 04/06/18 04/06/18 09:09 09:09 10:01 11:36 Temp 98.0 98.0 Pulse 76 132 113 124 Resp 18 B/P (MAP) 158/83 171/71 (104) Pulse Ox 98 O2 Delivery Nasal Cannula O2 Flow Rate 2.0 04/06/18 11:36 Pulse 113 B/P (MAP) 171/71 Intake and Output 04/05/18 04/05/18 04/06/18 15:00 23:00 07:00 Intake Total 1100 ml 180 ml Output Total 400 ml 900 ml 1200 ml Balance -400 ml 200 ml -1020 ml NATALIIA PARKER MD Apr 06, 2018 13:22
[2018-04-06] MEDS: ANTI-COAG MONITOR BY PHARMACY. MC PRN (15:14)
[2018-04-06] MEDS: FAMOTIDINE 20 MG TABLET. PO SCH (21:31)
[2018-04-07 03:33] VITALS: BP 171/88
[2018-04-07 07:42] VITALS: BP 154/75
[2018-04-07] MEDS: IPRATRPIUM/ALBUTEROL 0.5/2.5MG 3 ML NEBU. NEB SCH ×4 (08:00→20:02)
[2018-04-07] MEDS: predniSONE 20 MG TABLET PO SCH (08:38)
[2018-04-07] MEDS: LACTOBACILLUS RHAMNOSUS GG 1 CAPSULE. PO SCH ×2 (08:38→20:47)
[2018-04-07] MEDS: APIXABAN 5 MG TABLET. PO SCH ×2 (08:38→20:47)
[2018-04-07] MEDS: hydrALAZINE 25 MG TABLET PO SCH ×3 (08:39→20:48)
[2018-04-07] MEDS: DIGOXIN 125 MCG TABLET. PO SCH (08:39)
--- NOTE | 2018-04-07 10:24 | PDOC ---
CARDIO Progress Notes Date and Time Date of Service 04/07/2018 Time of Evaluation 1019 Subjective Subjective: No Chest Pain, No Palpitations, No Dizziness Vitals Vitals Vital Signs Date Time Temp Pulse Resp B/P (MAP) Pulse Ox O2 Delivery O2 Flow Rate FiO2 04/07/18 08:40 71 154/75 04/07/18 08:07 98 Nasal Cannula 2.0 04/07/18 07:42 97.7 16 97.7 Weight Weight [ ] Input and Output Intake and Output Intake and Output 04/07/18 07:00 Intake Total 1190 ml Output Total 800 ml Balance 390 ml Intake Oral 1190 ml Output Urine Total 800 ml # Voids 3 Physical Exam HEENT: Neck Supple W Full Motion Chest: Symmetric LUNGS: Other (exp wheezing) Heart: irregularly irregular, other (tele: atrial fib with RVR) Abdomen: Soft N/T Extremities: No Edema Neurology: alert, oriented, follow commands Assessment Assessment 1. Atrial fibrillation with a rapid ventricular response --rate controlled overnight --associated with AECOPD -no longer candidate for BB --continue diltiazem and dig for rate control; Eliquis for OAC 2. Chronic obstructive pulmonary disease exacerbation --defer to primary service 3. History of systolic and diastolic heart failure with ejection fraction 45%, --TTE completed 04/05/2018 with LVEF of 60-65% --compensated 4. Hypertension --increase hydralazine to TID --improving control 5. New diagnosis of lung cancer. 6. bioprosthetic AVR --functioning well on TTE KELLY OLIVA APRN Apr 07, 2018 10:24
[2018-04-07 10:50] VITALS: BP 142/71
--- NOTE | 2018-04-07 10:59 | PDOC ---
PULMONARY PROGRESS NOTES Subjective no soa/ mild wheezing Vitals Vital Signs Date Time Temp Pulse Resp B/P (MAP) Pulse Ox O2 Delivery O2 Flow Rate FiO2 04/07/18 10:50 98.2 75 16 142/71 (94) 97 Nasal Cannula 2.0 98.2 ROS: No Chest Pain General: Alert, No acute distress Lungs: Wheezing (faint) Cardiovascular: S1 Abdomen: Soft Neuro Exam: Alert Extremities: No Edema Skin: Warm Labs Laboratory Tests Test 04/05/18 14:50 04/06/18 05:15 Influenza Type A Antigen Negative (NEGATIVE) Influenza Type B Antigen Negative (NEGATIVE) White Blood Count 15.2 x10^3/uL (4.0-11.0) Red Blood Count 3.30 x10^6/uL (3.50-5.40) Hemoglobin 10.5 g/dL (12.0-15.5) Hematocrit 31.4 % (36.0-47.0) Mean Corpuscular Volume 95 fL (79-100) Mean Corpuscular Hemoglobin 32 pg (25-35) Mean Corpuscular Hemoglobin Concent 34 g/dL (31-37) Red Cell Distribution Width 15.3 % (11.5-14.5) Platelet Count 261 x10^3/uL (140-400) Neutrophils (%) (Auto) 88 % (31-73) Lymphocytes (%) (Auto) 5 % (24-48) Monocytes (%) (Auto) 7 % (0-9) Eosinophils (%) (Auto) 0 % (0-3) Basophils (%) (Auto) 0 % (0-3) Neutrophils # (Auto) 13.3 x10^3uL (1.8-7.7) Lymphocytes # (Auto) 0.8 x10^3/uL (1.0-4.8) Monocytes # (Auto) 1.1 x10^3/uL (0.0-1.1) Eosinophils # (Auto) 0.0 x10^3/uL (0.0-0.7) Basophils # (Auto) 0.0 x10^3/uL (0.0-0.2) Sodium Level 141 mmol/L (136-145) Potassium Level 4.0 mmol/L (3.5-5.1) Chloride Level 103 mmol/L (98-107) Carbon Dioxide Level 28 mmol/L (21-32) Anion Gap 10 (6-14) Blood Urea Nitrogen 30 mg/dL (7-20) Creatinine 1.1 mg/dL (0.6-1.0) Estimated GFR (Cockcroft-Gault) 48.0 Glucose Level 131 mg/dL (70-99) Calcium Level 9.5 mg/dL (8.5-10.1) Magnesium Level 2.1 mg/dL (1.8-2.4) Thyroid Stimulating Hormone (TSH) 0.698 uIU/mL (0.358-3.74) Medications Active Scripts Medications Dose Route/Sig Max Daily Dose Days Date Category Methotrexate (Methotrexate Sodium) 2.5 Mg Tablet 5 Tab PO WEEKLY ON Thursday02/22/18 Reported Folic Acid 1 Mg Tablet 1 Tab PO DAILY 02/22/18 Reported Metoprolol Tartrate 100 Mg Tablet 150 Mg PO DAILY 12/11/17 Reported Lanoxin (Digoxin) 125 Mcg Tablet 125 Mcg PO DAILY 06/25/16 Rx Cardizem Tablet (Diltiazem Hcl) 120 Mg Tablet 120 Mg PO DAILY 06/22/16 Reported Zoloft (Sertraline Hcl) 50 Mg Tablet 1 Tab PO DAILY 06/22/16 Reported Furosemide 20 Mg Tablet 20 Mg PO DAILY 02/05/16 Reported Klor-Con M10 (Potassium Chloride) 10 Meq Tab.er.prt 10 Meq PO DAILYWBKFT 10/09/15 Rx Eliquis (Apixaban) 5 Mg Tablet 5 Mg PO BID 10/09/15 Rx Sulfasalazine 500 Mg Tablet 1,500 Mg PO BID 09/13/14 Reported Synthroid (Levothyroxine Sodium) 100 Mcg Tablet 100 Mcg PO DAILYAC 09/13/14 Reported Plaquenil (Hydroxychloroquine Sulfate) 200 Mg Tablet 200 Mg PO DAILY 05/08/14 Reported Impression . 1. Acute hypoxic respiratory failure, related to acute exacerbation of chronic obstructive pulmonary disease and acute bronchitis. 2. Chest pain, could be cardiac in origin versus atypical. Clinically, less likely related to thromboembolic disease. Pt on Eliquis 3. Fever, likely related to a viral infection. Influenza screen negative. Currently on antibiotics. 4. Newly diagnosed LLL lung cancer/ awaiting OP XRT Plan . 1. Continue with present oxygen with gradual wean. 2. Monitor for further fever, followup cultures. 3. Continue empiric antibiotic. 4. Continue DuoNebs. 5. PFTs as an outpatient. 6. This patient is currently on anticoagulation on Eliquis, which is to continue per PCP. 7. Follow Cardiology recommendations. 8. As discussed above, clinical suspicion for thromboembolic disease is less. The patient is already on Eliquis and no need for further workup. 9. OP XRT for lung cancer BRET KURTZ MD Apr 07, 2018 10:59
--- NOTE | 2018-04-07 13:07 | PDOC ---
PROGRESS NOTES Chief Complaint Chief Complaint 1. Atrial fibrillation with a rapid ventricular response in the setting of acute chronic obstructive pulmonary disease exacerbation. 2. Chronic obstructive pulmonary disease exacerbation, likely secondary to bronchitis. 3. 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 4. Hypertension. 5. New diagnosis of lung cancer. morbid obesity acute hypoxic resp failure with COPD, bronchitis plan: fu with card, pulm bb held, cardizem increased to 360mg daily, on dig hydralazine added as per card, increase to 25mg tid add duoneb, add levaquin, cont prednisone 60mg daily, gi ppx cough meds check flu neg NC as needed cont eliquis PTOT consider dc in 1-2ds, may need 6min walk before dc History of Present Illness History of Present Illness ROS: no chills, sob or chest pain fever overnight T 101.9 04/05. afebrile now sob, on NC2 L from 4L, no home o2 cont cough with yellowish thick sputum Chronic afib, HR better now, increase cardizem to 360mg daily BP high Vitals Vitals Vital Signs Date Time Temp Pulse Resp B/P (MAP) Pulse Ox O2 Delivery O2 Flow Rate FiO2 04/07/18 12:01 Nasal Cannula 2.0 04/07/18 10:50 98.2 75 16 142/71 (94) 97 98.2 Physical Exam General: Alert, Oriented X3, Cooperative Heart: Regular rate, Normal S1, Normal S2 Lungs: Wheezing (faint) Abdomen: Normal bowel sounds, Soft Extremities: No clubbing, No cyanosis Skin: No rashes Assessment and Plan Assessmemt and Plan Problems Medical Problems: (1) A-fib Status: Acute (2) Acute respiratory failure with hypoxia Status: Acute (3) CHF (congestive heart failure) Status: Acute Comment Review of Relevant I have reviewed the following items sanjay (where applicable) has been applied. Labs Laboratory Tests Test 04/05/18 14:50 04/06/18 05:15 Influenza Type A Antigen Negative (NEGATIVE) Influenza Type B Antigen Negative (NEGATIVE) White Blood Count 15.2 x10^3/uL (4.0-11.0) Red Blood Count 3.30 x10^6/uL (3.50-5.40) Hemoglobin 10.5 g/dL (12.0-15.5) Hematocrit 31.4 % (36.0-47.0) Mean Corpuscular Volume 95 fL (79-100) Mean Corpuscular Hemoglobin 32 pg (25-35) Mean Corpuscular Hemoglobin Concent 34 g/dL (31-37) Red Cell Distribution Width 15.3 % (11.5-14.5) Platelet Count 261 x10^3/uL (140-400) Neutrophils (%) (Auto) 88 % (31-73) Lymphocytes (%) (Auto) 5 % (24-48) Monocytes (%) (Auto) 7 % (0-9) Eosinophils (%) (Auto) 0 % (0-3) Basophils (%) (Auto) 0 % (0-3) Neutrophils # (Auto) 13.3 x10^3uL (1.8-7.7) Lymphocytes # (Auto) 0.8 x10^3/uL (1.0-4.8) Monocytes # (Auto) 1.1 x10^3/uL (0.0-1.1) Eosinophils # (Auto) 0.0 x10^3/uL (0.0-0.7) Basophils # (Auto) 0.0 x10^3/uL (0.0-0.2) Sodium Level 141 mmol/L (136-145) Potassium Level 4.0 mmol/L (3.5-5.1) Chloride Level 103 mmol/L (98-107) Carbon Dioxide Level 28 mmol/L (21-32) Anion Gap 10 (6-14) Blood Urea Nitrogen 30 mg/dL (7-20) Creatinine 1.1 mg/dL (0.6-1.0) Estimated GFR (Cockcroft-Gault) 48.0 Glucose Level 131 mg/dL (70-99) Calcium Level 9.5 mg/dL (8.5-10.1) Magnesium Level 2.1 mg/dL (1.8-2.4) Thyroid Stimulating Hormone (TSH) 0.698 uIU/mL (0.358-3.74) Medications Current Medications Diltiazem HCl 125 mg/Dextrose 125 ml @ 5 mls/hr 1X ONCE IV Last administered on 04/03/18at 00:30; Start 04/03/18 at 22:00; Stop 04/04/18 at 22:59; Status DC Ceftriaxone Sodium 50 ml @ 100 mls/hr 1X ONCE IV Last administered on at 21:54; Start 04/03/18 at 22:00; Stop 04/03/18 at 22:29; Status DC Azithromycin (Zithromax) 500 mg 1X ONCE PO Last administered on 04/03/18at 21: 54; Start 04/03/18 at 22:00; Stop 04/03/18 at 22:01; Status DC Ondansetron HCl (Zofran) 4 mg PRN Q8HRS PRN IV NAUSEA/VOMITING 1ST CHOICE; Start 04/03/18 at 21:30; Stop 04/04/18 at 21:29; Status DC Sodium Chloride 1,000 ml @ 75 mls/hr [id number] IV ; Start 04/03/18 at 22:00; Stop 04/03/18 at 22:00; Status DC Furosemide (Lasix) 20 mg 1X ONCE IVP Last administered on 04/03/18at 21:57; Start 04/03/18 at 22:00; Stop 04/03/18 at 22:01; Status DC Apixaban (Eliquis) 5 mg ONCE ONCE PO Last administered on 04/03/18at 21:58; Start 04/03/18 at 22:00; Stop 04/03/18 at 22:01; Status DC Potassium Chloride (Klor-Con) 40 meq 1X ONCE PO Last administered on at 22:10; Start 04/03/18 at 22:30; Stop 04/03/18 at 22:31; Status DC Influenza Virus Vaccine (Afluria Trivalent [id number] Syringe) 0.5 ml ONCE ONCE VAX IM Last administered on 04/04/18at 08:23; Start 04/04/18 at 09:00; Stop at 09:01; Status DC Diltiazem HCl (Cardizem 24hr Cd) 240 mg DAILY PO Last administered on at 09:09; Start 04/04/18 at 13:00; Stop 04/06/18 at 10:35; Status DC Digoxin (Lanoxin) 125 mcg DAILY PO Last administered on 04/07/18at 08:39; Start 04/04/18 at 13:00 Apixaban (Eliquis) 5 mg BID PO Last administered on 04/07/18at 08:38; Start at 13:00 Info (Anti-Coagulation Monitoring By Pharmacy) 1 each PRN DAILY PRN MC SEE COMMENTS Last administered on 04/06/18at 15:14; Start 04/04/18 at 15:00 Azithromycin (Zithromax) 250 mg DAILY PO Last administered on 04/04/18at 22:27; Start 04/04/18 at 19:15; Stop 04/05/18 at 10:34; Status DC Prednisone (Prednisone) 60 mg DAILY PO Last administered on 04/07/18at 08:38; Start 04/04/18 at 19:15 Oxycodone/ Acetaminophen (Percocet 5/325) 1 tab PRN BID PRN PO SEVERE PAIN Last administered on 04/04/18at 22:28; Start 04/04/18 at 21:15 Acetaminophen (Tylenol) 650 mg PRN Q6HRS PRN PO MILD PAIN / TEMP; Start at 21:15; Stop 04/06/18 at 15:47; Status DC Lactobacillus Rhamnosus (Culturelle) 1 cap BID PO Last administered on at 08:38; Start 04/05/18 at 21:00 Acetaminophen (Tylenol) 650 mg PRN Q6HRS PRN PO FEVER; Start 04/05/18 at 10:45 Ondansetron HCl (Zofran) 4 mg PRN Q6HRS PRN IV NAUSEA/VOMITING; Start 04/05/18 at 10:45 Morphine Sulfate (Morphine Sulfate) 2 mg PRN Q2HR PRN IV MODERATE TO SEVERE PAIN; Start 04/05/18 at 10:45 Tramadol HCl (Ultram) 50 mg PRN Q6HRS PRN PO MODERATE PAIN; Start 04/05/18 at 10:45 Docusate Sodium (Colace) 100 mg PRN DAILY PRN PO CONSTIPATION; Start 04/05/18 at 10:45 Albuterol/ Ipratropium (Duoneb) 3 ml RTQID NEB Last administered on 04/07/18at 12:01; Start 04/05/18 at 12:00 Albuterol Sulfate (Ventolin Neb Soln) 2.5 mg PRN Q2HR PRN NEB SHORTNESS OF BREATH; Start 04/05/18 at 10:45 Guaifenesin (Mucinex) 600 mg BID PO Last administered on 04/07/18at 08:38; Start 04/05/18 at 11:00 Levofloxacin/ Dextrose 100 ml @ 100 mls/hr Q24H IV Last administered on at 11:44; Start 04/05/18 at 11:00 Famotidine (Pepcid) 20 mg QHS PO Last administered on 04/06/18at 21:31; Start 04/05/18 at 21:00 Diltiazem HCl (Cardizem 24hr Cd) 360 mg DAILY PO Last administered on at 08:40; Start 04/07/18 at 09:00 Digoxin (Lanoxin) 0.0625 mcg 1X ONCE IV Last administered on 04/06/18at 11:36; Start 04/06/18 at 10:30; Stop 04/06/18 at 10:46; Status DC Hydralazine HCl (Apresoline) 25 mg BID PO Last administered on 04/07/18at 08:39 ; Start 04/06/18 at 10:45; Stop 04/07/18 at 10:23; Status DC Hydralazine HCl (Apresoline) 25 mg TID PO ; Start 04/07/18 at 14:00 Active Scripts Active Lanoxin (Digoxin) 125 Mcg Tablet 125 Mcg PO DAILY Klor-Con M10 (Potassium Chloride) 10 Meq Tab.er.prt 10 Meq PO DAILYWBKFT Eliquis (Apixaban) 5 Mg Tablet 5 Mg PO BID Reported Methotrexate (Methotrexate Sodium) 2.5 Mg Tablet 5 Tab PO WEEKLY ON THURSDAY Folic Acid 1 Mg Tablet 1 Tab PO DAILY Metoprolol Tartrate 100 Mg Tablet 150 Mg PO DAILY Cardizem Tablet (Diltiazem Hcl) 120 Mg Tablet 120 Mg PO DAILY Zoloft (Sertraline Hcl) 50 Mg Tablet 1 Tab PO DAILY Furosemide 20 Mg Tablet 20 Mg PO DAILY Sulfasalazine 500 Mg Tablet 1,500 Mg PO BID Synthroid (Levothyroxine Sodium) 100 Mcg Tablet 100 Mcg PO DAILYAC Plaquenil (Hydroxychloroquine Sulfate) 200 Mg Tablet 200 Mg PO DAILY Vitals/I & O Vital Sign - Last 24 Hours 04/06/18 04/06/18 04/06/18 04/06/18 14:13 15:33 19:11 19:20 Temp 97.8 98.3 97.8 98.3 Pulse 103 106 Resp 19 18 B/P (MAP) 145/86 (105) 121/90 (100) Pulse Ox 97 98 O2 Delivery Nasal Cannula Nasal Cannula Nasal Cannula Nasal Cannula O2 Flow Rate 2.0 2.0 2.0 2.0 04/06/18 04/06/18 04/06/18 04/06/18 20:25 21:31 23:41 23:53 Temp 98.5 98.5 Pulse 106 95 89 Resp 18 B/P (MAP) 121/90 183/80 (114) 151/68 (95) Pulse Ox 97 95 O2 Delivery Nasal Cannula Nasal Cannula O2 Flow Rate 2.0 2.0 04/07/18 04/07/18 04/07/18 04/07/18 03:33 07:42 08:00 08:07 Temp 97.4 97.7 97.4 97.7 Pulse 71 71 Resp 16 16 B/P (MAP) 171/88 (115) 154/75 (101) Pulse Ox 96 99 98 O2 Delivery Nasal Cannula Nasal Cannula Nasal Cannula Nasal Cannula O2 Flow Rate 2.0 2.0 2.0 2.0 04/07/18 04/07/18 04/07/18 04/07/18 08:39 08:39 08:40 10:50 Temp 98.2 98.2 Pulse 71 71 71 75 Resp 16 B/P (MAP) 154/75 154/75 154/75 142/71 (94) Pulse Ox 97 O2 Delivery Nasal Cannula O2 Flow Rate 2.0 04/07/18 12:01 O2 Delivery Nasal Cannula O2 Flow Rate 2.0 Intake and Output 04/06/18 04/06/18 04/07/18 15:00 23:00 07:00 Intake Total 240 ml 950 ml Output Total 800 ml Balance 240 ml 950 ml -800 ml NATALIIA PARKER MD Apr 07, 2018 13:06
[2018-04-07 14:39] VITALS: BP 157/70
[2018-04-07 19:38] VITALS: BP 169/73
[2018-04-07] MEDS: BUDESONIDE 0.5 MG/2 ML NEBU. NEB SCH (20:02)
[2018-04-07] MEDS: FAMOTIDINE 20 MG TABLET. PO SCH (20:47)
[2018-04-07 22:51] VITALS: BP 122/71
[2018-04-08 02:44] VITALS: BP 139/69
[2018-04-08 05:10] LABS: BASO % 0 % (0-3); EOS % 0 % (0-3); HEMATOCRIT 29.5 % (36.0-47.0); HEMOGLOBIN 9.8 g/dL (12.0-15.5); LYMPH # 1.3 x10^3/uL (1.0-4.8); LYMPH % 12 % (24-48); MEAN CORPUSCULAR HEMOGLOBIN 32 pg (25-35); MEAN CORPUSCULAR HGB CONC 33 g/dL (31-37); MEAN CORPUSCULAR VOLUME 96 fL (79-100); MONO # 0.9 x10^3/uL (0.0-1.1); MONO % 8 % (0-9); NEUT # 8.8 x10^3uL (1.8-7.7); NEUT % 80 % (31-73); PLATELET COUNT 247 x10^3/uL (140-400); RED BLOOD COUNT 3.09 x10^6/uL (3.50-5.40); RED CELL DISTRIBUTION WIDTH 15.2 % (11.5-14.5); WHITE BLOOD COUNT 11.1 x10^3/uL (4.0-11.0)
[2018-04-08 05:32] LABS: CALCIUM 9.9 mg/dL (8.5-10.1); CREATININE 1.2 mg/dL (0.6-1.0); GFR 43.4; POTASSIUM 4.1 mmol/L (3.5-5.1)
[2018-04-08] MEDS: IPRATRPIUM/ALBUTEROL 0.5/2.5MG 3 ML NEBU. NEB SCH ×3 (07:07→15:00)
[2018-04-08] MEDS: BUDESONIDE 0.5 MG/2 ML NEBU. NEB SCH (07:07)
[2018-04-08 07:45] VITALS: BP 138/73
[2018-04-08 08:25] VITALS: BP 159/74
[2018-04-08] MEDS: hydrALAZINE 25 MG TABLET PO SCH ×2 (08:38→13:45)
[2018-04-08] MEDS: predniSONE 20 MG TABLET PO SCH (08:38)
[2018-04-08] MEDS: DIGOXIN 125 MCG TABLET. PO SCH (08:40)
[2018-04-08] MEDS: APIXABAN 5 MG TABLET. PO SCH (08:40)
[2018-04-08] MEDS: LACTOBACILLUS RHAMNOSUS GG 1 CAPSULE. PO SCH (08:40)
--- NOTE | 2018-04-08 09:47 | PDOC ---
PULMONARY PROGRESS NOTES Subjective no soa/ mild wheezing Vitals Vital Signs Date Time Temp Pulse Resp B/P (MAP) Pulse Ox O2 Delivery O2 Flow Rate FiO2 04/08/18 08:40 97 04/08/18 08:38 159/74 04/08/18 08:25 97.8 20 92 Nasal Cannula 2.0 97.8 ROS: No Chest Pain General: Alert, No acute distress Lungs: Wheezing (faint) Cardiovascular: S1 Abdomen: Soft Neuro Exam: Alert Extremities: No Edema Skin: Warm Labs Laboratory Tests Test 04/08/18 04:45 White Blood Count 11.1 x10^3/uL (4.0-11.0) Red Blood Count 3.09 x10^6/uL (3.50-5.40) Hemoglobin 9.8 g/dL (12.0-15.5) Hematocrit 29.5 % (36.0-47.0) Mean Corpuscular Volume 96 fL (79-100) Mean Corpuscular Hemoglobin 32 pg (25-35) Mean Corpuscular Hemoglobin Concent 33 g/dL (31-37) Red Cell Distribution Width 15.2 % (11.5-14.5) Platelet Count 247 x10^3/uL (140-400) Neutrophils (%) (Auto) 80 % (31-73) Lymphocytes (%) (Auto) 12 % (24-48) Monocytes (%) (Auto) 8 % (0-9) Eosinophils (%) (Auto) 0 % (0-3) Basophils (%) (Auto) 0 % (0-3) Neutrophils # (Auto) 8.8 x10^3uL (1.8-7.7) Lymphocytes # (Auto) 1.3 x10^3/uL (1.0-4.8) Monocytes # (Auto) 0.9 x10^3/uL (0.0-1.1) Eosinophils # (Auto) 0.0 x10^3/uL (0.0-0.7) Basophils # (Auto) 0.0 x10^3/uL (0.0-0.2) Sodium Level 144 mmol/L (136-145) Potassium Level 4.1 mmol/L (3.5-5.1) Chloride Level 106 mmol/L (98-107) Carbon Dioxide Level 28 mmol/L (21-32) Anion Gap 10 (6-14) Blood Urea Nitrogen 34 mg/dL (7-20) Creatinine 1.2 mg/dL (0.6-1.0) Estimated GFR (Cockcroft-Gault) 43.4 Glucose Level 118 mg/dL (70-99) Calcium Level 9.9 mg/dL (8.5-10.1) Laboratory Tests Test 04/08/18 04:45 White Blood Count 11.1 x10^3/uL (4.0-11.0) Red Blood Count 3.09 x10^6/uL (3.50-5.40) Hemoglobin 9.8 g/dL (12.0-15.5) Hematocrit 29.5 % (36.0-47.0) Mean Corpuscular Volume 96 fL (79-100) Mean Corpuscular Hemoglobin 32 pg (25-35) Mean Corpuscular Hemoglobin Concent 33 g/dL (31-37) Red Cell Distribution Width 15.2 % (11.5-14.5) Platelet Count 247 x10^3/uL (140-400) Neutrophils (%) (Auto) 80 % (31-73) Lymphocytes (%) (Auto) 12 % (24-48) Monocytes (%) (Auto) 8 % (0-9) Eosinophils (%) (Auto) 0 % (0-3) Basophils (%) (Auto) 0 % (0-3) Neutrophils # (Auto) 8.8 x10^3uL (1.8-7.7) Lymphocytes # (Auto) 1.3 x10^3/uL (1.0-4.8) Monocytes # (Auto) 0.9 x10^3/uL (0.0-1.1) Eosinophils # (Auto) 0.0 x10^3/uL (0.0-0.7) Basophils # (Auto) 0.0 x10^3/uL (0.0-0.2) Sodium Level 144 mmol/L (136-145) Potassium Level 4.1 mmol/L (3.5-5.1) Chloride Level 106 mmol/L (98-107) Carbon Dioxide Level 28 mmol/L (21-32) Anion Gap 10 (6-14) Blood Urea Nitrogen 34 mg/dL (7-20) Creatinine 1.2 mg/dL (0.6-1.0) Estimated GFR (Cockcroft-Gault) 43.4 Glucose Level 118 mg/dL (70-99) Calcium Level 9.9 mg/dL (8.5-10.1) Medications Active Scripts Medications Dose Route/Sig Max Daily Dose Days Date Category Methotrexate (Methotrexate Sodium) 2.5 Mg Tablet 5 Tab PO WEEKLY ON Thursday02/22/18 Reported Folic Acid 1 Mg Tablet 1 Tab PO DAILY 02/22/18 Reported Metoprolol Tartrate 100 Mg Tablet 150 Mg PO DAILY 12/11/17 Reported Lanoxin (Digoxin) 125 Mcg Tablet 125 Mcg PO DAILY 06/25/16 Rx Cardizem Tablet (Diltiazem Hcl) 120 Mg Tablet 120 Mg PO DAILY 06/22/16 Reported Zoloft (Sertraline Hcl) 50 Mg Tablet 1 Tab PO DAILY 06/22/16 Reported Furosemide 20 Mg Tablet 20 Mg PO DAILY 02/05/16 Reported Klor-Con M10 (Potassium Chloride) 10 Meq Tab.er.prt 10 Meq PO DAILYWBKFT 10/09/15 Rx Eliquis (Apixaban) 5 Mg Tablet 5 Mg PO BID 10/09/15 Rx Sulfasalazine 500 Mg Tablet 1,500 Mg PO BID 09/13/14 Reported Synthroid (Levothyroxine Sodium) 100 Mcg Tablet 100 Mcg PO DAILYAC 09/13/14 Reported Plaquenil (Hydroxychloroquine Sulfate) 200 Mg Tablet 200 Mg PO DAILY 05/08/14 Reported Impression . 1. Acute hypoxic respiratory failure, related to acute exacerbation of chronic obstructive pulmonary disease and acute bronchitis. 2. Chest pain, could be cardiac in origin versus atypical. Clinically, less likely related to thromboembolic disease. Pt on Eliquis 3. Fever, likely related to a viral infection. Influenza screen negative. Currently on antibiotics.RESOLVED FEVER 4. Newly diagnosed LLL lung cancer/ awaiting OP XRT Plan . 1. Continue with present oxygen with gradual wean. 2. Monitor for further fever, followup cultures. 3. Continue empiric antibiotic. 4. Continue DuoNebs. 5. PFTs as an outpatient. 6. This patient is currently on anticoagulation on Eliquis, which is to continue per PCP. 7. Follow Cardiology recommendations. 8. OK WITH PPP TX 9. OP XRT for lung cancer BRET KURTZ MD Apr 08, 2018 09:47
[2018-04-08] MEDS ORDERED: IPRA3AMP29 NEB (10:23)
[2018-04-08] MEDS ORDERED: DILT180C29 PO (10:23)
[2018-04-08] MEDS ORDERED: HYDR-2868 PO (10:23)
[2018-04-08] MEDS ORDERED: PRED20TA PO (10:23)
[2018-04-08] MEDS ORDERED: LEVO500T59 PO (10:23)
[2018-04-08] MEDS ORDERED: FAMO20TA5 PO (10:23)
[2018-04-08] MEDS ORDERED: ALBU2.5V5 NEB (10:23)
[2018-04-08 11:18] VITALS: BP 161/80
--- NOTE | 2018-04-08 13:13 | DISCH ---
DISCHARGE DISCHARGE INFORMATION: DISCHARGE DATE: Apr 08, 2018 FINAL DIAGNOSIS Problems Medical Problems: (1) A-fib Status: Acute (2) Acute respiratory failure with hypoxia Status: Acute (3) CHF (congestive heart failure) Status: Acute CONDITION ON DISCHARGE: Stable CODE STATUS: Code Status: Full DETENTION: SNF STAY <30 DAYS: Yes POST DISCHARGE ORDERS: ACTIVITY ORDERS: Activity as tolerated WEIGHT BEARING STATUS: As tolerated DIET AFTER DISCHARGE: Cardiac WOUND/INCISION CARE: Other, see below FOLLOW-UP: PHYSICIAN FOLLOW-UP: follow up with PCP and certified professional midwife in 2 weeks TREATMENT/EQUIPMENT ORDERS: ADAPTIVE EQUIPMENT NEEDED: None RESPIRATORY EQUIPMENT NEEDED: Oxygen Physical Therapy For: Evalulation/Treatment Occupational Therapy For: Evaluation/Treatment DISCHARGE MEDICATIONS: Home Meds Active Scripts Prednisone (PREDNISONE) 20 Mg Tablet, 60 MG PO DAILY, #20 TAB Prov:NATALIIA PARKER MD 04/08/18 Famotidine (FAMOTIDINE) 20 Mg Tablet, 20 MG PO QHS for 30 Days, #30 TAB Prov:NATALIIA PARKER MD 04/08/18 Diltiazem Hcl (DILTIAZEM 24HR CD) 180 Mg Cap.er.24h, 360 MG PO DAILY for 30 Days , #60 CAP.SR Prov:NATALIIA PARKER MD 04/08/18 Hydralazine Hcl (HYDRALAZINE HCL) 25 Mg Tablet, 25 MG PO TID for 30 Days, #90 TAB Prov:NATALIIA PARKER MD 04/08/18 Albuterol Sulfate (ALBUTEROL SULFATE NEB SOLN) 2.5 Mg/3 Ml Vial.neb, 2.5 MG NEB PRN Q2HR PRN for SHORTNESS OF BREATH for 15 Days, EACH Prov:NATALIIA PARKER MD 04/08/18 Ipratropium/Albuterol Sulfate (DUONEB 0.5-3(2.5) MG/3 ML) 3 Ml Ampul.neb, 3 ML NEB RTQID for 15 Days, #60 EACH Prov:NATALIIA PARKER MD 04/08/18 Levofloxacin (LEVAQUIN) 500 Mg Tablet, 500 MG PO DAILY06 for 3 Days, #3 TAB Prov:NATALIIA PARKER MD 04/08/18 Digoxin (LANOXIN) 125 Mcg Tablet, 125 MCG PO DAILY, #30 TAB-CAP Prov:NATALIIA PARKER MD 12/21/16 Potassium Chloride (KLOR-CON M10) 10 Meq Tab.er.prt, 10 MEQ PO DAILYWBKFT, #30 TAB 0 Refills Prov:XAVIER KUMAR MD 10/09/15 Apixaban (ELIQUIS) 5 Mg Tablet, 5 MG PO BID, #30 TAB 1 Refill Prov:XAVIER KUMAR MD 10/09/15 Reported Medications Methotrexate Sodium (METHOTREXATE) 2.5 Mg Tablet, 5 TAB PO weekly on thursday02/22/18 Folic Acid (FOLIC ACID) 1 Mg Tablet, 1 TAB PO DAILY 02/22/18 Sertraline Hcl (ZOLOFT) 50 Mg Tablet, 1 TAB PO DAILY 06/22/16 Furosemide (FUROSEMIDE) 20 Mg Tablet, 20 MG PO DAILY, TAB 02/05/16 Sulfasalazine (SULFASALAZINE) 500 Mg Tablet, 1500 MG PO BID 09/13/14 Levothyroxine Sodium (SYNTHROID) 100 Mcg Tablet, 100 MCG PO DAILYAC 09/13/14 Hydroxychloroquine Sulfate (PLAQUENIL) 200 Mg Tablet, 200 MG PO DAILY 05/08/14 Discontinued Reported Medications Metoprolol Tartrate (METOPROLOL TARTRATE) 100 Mg Tablet, 150 MG PO DAILY 12/11/17 Diltiazem Hcl (CARDIZEM TABLET) 120 Mg Tablet, 120 MG PO DAILY 06/22/16 NATALIIA PARKER MD Apr 08, 2018 13:13
[2018-04-08 13:45] VITALS: BP 168/70
--- NOTE | 2018-04-08 14:43 | PDOC3 ---
Discharge Summary [facility] Date of Admission: Apr 03, 2018 Discharge Date: Apr 08, 2018 Admitting Diagnosis 1. Atrial fibrillation with a rapid ventricular response in the setting of acute chronic obstructive pulmonary disease exacerbation. 2. Chronic obstructive pulmonary disease exacerbation, likely secondary to bronchitis. 3. 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 4. Hypertension. 5. New diagnosis of lung cancer. morbid obesity acute hypoxic resp failure with COPD, bronchitis Final Diagnosis CONSULTS pulm card Brief Hospital Course Ms. Casas is a 77 old F, with h/o afib, copd, no home o2, came for cough, sob, was found PNA, rapid afib. Pt required 4L NC, now on 2 L, cough better, still bl wheezing. afib better with increased dose of cardizem, cont dig, dc metoprolol since copd. stable to dc to snf. cont eliquis. cont steroid, levaquin. dc time 35min. General: Alert, Oriented X3, Cooperative Heart: Regular rate, Normal S1, Normal S2 Lungs: Wheezing bl mild, some rhonchis Abdomen: Normal bowel sounds, Soft Extremities: No clubbing, No cyanosis Skin: No rashes Patient History: FH: lymphoma 32 MOTHER FH: prostate cancer 33 FATHER Family history: Angina (situation) G8 BROTHER 33 FATHER G8 SISTER G8 SISTER Family history: Blood disorder (situation) 32 MOTHER Family history: Breast disease (situation) G8 SISTER Family history: Cardiomyopathy (situation) 33 FATHER 32 MOTHER Family history: Cardiovascular disease (situation) G8 BROTHER 33 FATHER 32 MOTHER G8 SON G8 SISTER Family history: Hypertension (situation) G8 BROTHER 33 FATHER 32 MOTHER G8 SON G8 SISTER G8 SISTER Family history: Obesity (situation) 32 MOTHER Family history: Schizophrenia (situation) Disposition rehab CONDITION AT DISCHARGE: Improved Scheduled Apixaban (Eliquis), 5 MG PO BID Digoxin (Lanoxin), 125 MCG PO DAILY Diltiazem Hcl (Diltiazem 24HR Cd), 360 MG PO DAILY Famotidine (Famotidine), 20 MG PO QHS Folic Acid (Folic Acid), 1 TAB PO DAILY, (Reported) Furosemide (Furosemide), 20 MG PO DAILY, (Reported) Hydralazine Hcl (Hydralazine Hcl), 25 MG PO TID Hydroxychloroquine Sulfate (Plaquenil), 200 MG PO DAILY, (Reported) Ipratropium/Albuterol Sulfate (Duoneb 0.5-3(2.5) Mg/3 Ml), 3 ML NEB RTQID Levofloxacin (Levaquin), 500 MG PO DAILY06 Levothyroxine Sodium (Synthroid), 100 MCG PO DAILYAC, (Reported) Methotrexate Sodium (Methotrexate), 5 TAB PO weekly on thursday, (Reported) Potassium Chloride (Klor-Con M10), 10 MEQ PO DAILYWBKFT Prednisone (Prednisone), 60 MG PO DAILY Sertraline Hcl (Zoloft), 1 TAB PO DAILY, (Reported) Sulfasalazine (Sulfasalazine), 1,500 MG PO BID, (Reported) Scheduled PRN Albuterol Sulfate (Albuterol Sulfate Neb Soln), 2.5 MG NEB PRN Q2HR PRN for SHORTNESS OF BREATH Discontinued Medications Diltiazem Hcl (Cardizem Tablet), 120 MG PO DAILY, (Reported) Metoprolol Tartrate (Metoprolol Tartrate), 150 MG PO DAILY, (Reported) NATALIIA PARKER MD Apr 08, 2018 14:43
== END 2018-04-08 16:12 | DRG 871 ==
LOC: ER 19:55 → 2 NORTH 20:37
PROVIDERS: ADMIT Hospitalist; ATTEND Hospitalist
PROC: 02HV33Z Insertion of Infusion Device into Superior Vena Cava, Percutaneous Approach (ICD-10-PCS; principal; 2018-04-05)
DX: A41.9 Sepsis, unspecified organism (principal); J18.9 Pneumonia, unspecified organism; J96.01 Acute respiratory failure with hypoxia; C34.32 Malignant neoplasm of lower lobe, left bronchus or lung; I13.0 Hypertensive heart and chronic kidney disease with heart failure and stage 1 through stage 4 chronic kidney disease, or unspecified chronic kidney disease; J44.0 Chronic obstructive pulmonary disease with (acute) lower respiratory infection; J44.1 Chronic obstructive pulmonary disease with (acute) exacerbation; E03.9 Hypothyroidism, unspecified; E66.01 Morbid (severe) obesity due to excess calories; E78.5 Hyperlipidemia, unspecified; I48.2 Chronic atrial fibrillation; J20.9 Acute bronchitis, unspecified; K21.9 Gastro-esophageal reflux disease without esophagitis; K57.90 Diverticulosis of intestine, part unspecified, without perforation or abscess without bleeding; M06.9 Rheumatoid arthritis, unspecified; N18.9 Chronic kidney disease, unspecified; Z96.659 Presence of unspecified artificial knee joint; M19.90 Unspecified osteoarthritis, unspecified site; Z96.641 Presence of right artificial hip joint; Z79.01 Long term (current) use of anticoagulants; Z81.8 Family history of other mental and behavioral disorders; Z82.49 Family history of ischemic heart disease and other diseases of the circulatory system; Z87.891 Personal history of nicotine dependence; Z90.710 Acquired absence of both cervix and uterus; Z95.3 Presence of xenogenic heart valve; Z85.72 Personal history of non-Hodgkin lymphomas; Z79.899 Other long term (current) drug therapy; Z88.8 Allergy status to other drugs, medicaments and biological substances; Z68.38 Body mass index [BMI] 38.0-38.9, adult; Z90.49 Acquired absence of other specified parts of digestive tract; I50.9 Heart failure, unspecified
CPT/HCPCS: 36415; 36569; 36600; 71045; 80048; 80053; 82805; 83605; 83735; 83880; 84443; 84484; 85007; 85025; 85610; 87804; 90471; 90756; 93005; 93306; 94640; 94760; 96365; 96368; 96375; J0690; J1160; J1940; J1956; J3490; J7512; J7620; J7626; Q0144; 97110; 97116; 97530; 99285-25; Q2035

== ENCOUNTER → 2018-05-21 | Outpatient (CLI) | payer BC ==
[~2018-05-21] MED LIST changes: +ALBU2.5V5 NEB; +DILT120C80 PO; +FAMO20TA5 PO; +HYDR-2868 PO; +HYDR-3164 PO; -HYDR-971 PO; +IPRA3AMP29 NEB; +PRED20TA PO
--- NOTE | 2018-05-21 10:06 | RAD ---
EXAM: CT Chest without IV contrast CLINICAL HISTORY: SMALL NON CELL LUNG CA, NODULE COMPARISON: CT 02/15/2018, 03/28/2015 TECHNIQUE: CT of the chest without intravenous contrast. Axial, coronal and sagittal reformatted images were generated. ---PQRS compliance statement - One or more of the following individualized dose reduction techniques were utilized for this study: 1. Automated exposure control 2. Adjustment of the mA and/or kV according to patient size 3. Use of iterative reconstruction technique--- FINDINGS: Lack of intravenous contrast limits evaluation of solid organs, vasculature, and lymph nodes. Chest: Heart is not enlarged. Coronary artery and aortic root calcifications are seen. Ascending aorta measures 4.6 cm in diameter, stable when previously measured in a similar fashion. Prosthetic aortic valve is seen. Calcified mediastinal and hilar lymph nodes are seen. No lymphadenopathy by size criteria. Small hiatal hernia. Base of neck is unremarkable with small but otherwise unremarkable appearance of the thyroid. No pleural effusion or pneumothorax. Linear opacities in the bilateral lung bases likely subsegmental atelectasis/scarring. There is a left upper lobe groundglass, mildly spiculated opacity measuring 1.8 x 1.1 cm, previously 1.9 cm. Right upper lobe 3 mm lung nodule (series 3 image 26) is stable. Superior segment left lower lobe lung nodule (series 3 image 67) is stable. Right upper lobe 2-3 mm lung nodule (series 3 image 74) is also stable. Additional bilateral lung nodules are also stable. Visualized Upper abdomen: Cholecystectomy clips are seen. Atherosclerotic calcifications of aorta are seen. Mild nodularity of the left adrenal gland, stable. Nonobstructing left interpolar renal calculus. Bones: Osseous structures are stable. Incidentally noted bilateral cervical ribs. IMPRESSION: 1. Left upper lobe groundglass mildly spiculated opacity is grossly stable accounting for differences in technique. 2. No thoracic lymphadenopathy 3. Ascending aortic aneurysm, stable. 4. Bilateral <4 mm lung nodules are stable. 5. Nonobstructing left interpolar renal calculus is seen. 6. Bilateral cervical ribs are seen, right larger than left. Electronically signed by: Earle Perdomo MD (05/21/2018 10:03 AM) [facility]
== END | disposition home or self-care (01) ==
LOC: CT 10:11
PROVIDERS: ATTEND Radiology Radiation Oncology
DX: C34.32 Malignant neoplasm of lower lobe, left bronchus or lung (principal); I71.2 Thoracic aortic aneurysm, without rupture; N20.0 Calculus of kidney; I70.0 Atherosclerosis of aorta; Z95.2 Presence of prosthetic heart valve
CPT/HCPCS: 71250

== ENCOUNTER → 2018-08-31 | Outpatient (CLI) | payer BC ==
[~2018-08-31] MED LIST changes: -DILT120C80 PO; +DILT120C85 PO; +IOHEXOL 300 MG/ML 100ML VIAL. IV ONE; -OXYC-327 PO; +OXYC1TAB19 PO
--- NOTE | 2018-08-31 13:21 | RAD ---
CT CHEST W/CONTRAST Indication: Lung cancer Technique: Postcontrast CT imaging was performed of the chest, multiplanar reconstruction images submitted. One or more of the following individualized dose reduction techniques were utilized for this examination: 1. Automated exposure control 2. Adjustment of the mA and/or kV according to patient size 3. Use of iterative reconstruction technique. Comparison: May 21, 2018; February 15, 2018 Findings: There is again noncalcified mass with irregular margins of the posterior aspect of the left upper lobe best seen axial image 18, greatest dimension about 2.1 cm transverse by 1.6 cm AP by 2.1 cm CC. This measures larger as previously about 1.9 cm transverse by 1.2 cm AP by 1.1 cm cc on the previous exams. There is a small 0.4-0.5 cm noncalcified right lower lobe nodule axial image 35 series 2, previously about 0.3 to 0.4 cm on the February 2018 exam. Tiny superior left lower lobe nodule axial image 19 series 2 about 0.3 cm is stable. There are again fat-containing Bochdalek hernias bilaterally. There is no pleural or pericardial effusion or pneumothorax. There is no new significant infiltrate. There is ventral hernia of the superior abdomen containing partial wall of short segment of the transverse colon as seen previously, also another right ventral superior abdominal hernia containing fat as seen previously. [id number] sized hiatal hernia is somewhat greater, nonspecific wall thickening of involved segment. There is no new significant lymphadenopathy of the chest. There is aortic valvular prosthesis. There is dilatation ascending thoracic aorta about 4.6 cm unchanged. There is small 0.2 to 0.3 cm nonobstructive left renal calculus. IMPRESSION: 1. Previously seen noncalcified left upper lobe mass measures larger. There is no new significant lymphadenopathy. Small right lower lobe pulmonary nodule is somewhat larger than February 2018 exam also for which attention on follow-up advised. 2. There is stable dilatation ascending thoracic aorta about 4.6 cm. 3. Small to moderate size hiatal hernia is somewhat larger. 4. There are again ventral hernias of the visualized superior abdomen, one which contains partial wall of the transverse colon. 5. There is small nonobstructive left renal calculus. Electronically signed by: Eyad Francis MD (08/31/2018 1:18 PM) [id number]
== END | disposition home or self-care (01) ==
LOC: CT 09:19
PROVIDERS: ATTEND Internal Medicine Hematology & Oncology
DX: C34.12 Malignant neoplasm of upper lobe, left bronchus or lung (principal); K44.9 Diaphragmatic hernia without obstruction or gangrene; K43.9 Ventral hernia without obstruction or gangrene; N20.0 Calculus of kidney
CPT/HCPCS: 71260; Q9967

== ENCOUNTER → 2018-12-22 | Outpatient (CLI) | payer BC ==
[~2018-12-22] MED LIST changes: +CONTRAST GIVEN. MC PRN
--- NOTE | 2018-12-22 14:47 | RAD ---
CT chest with contrast 12/22/2018 INDICATION: History of lung cancer COMPARISON STUDY: CT of the chest August 31, 2018. TECHNIQUE: Multidetector CT imaging of the chest was performed following the administration of IV contrast. FINDINGS: Previously seen opacity in the left upper lung has changed in morphology in the interim since comparison study. What appears to be an increased component of atelectasis or scarring is seen. The solid appearing component of the opacity may be slightly decreased in the interim. Findings could reflect post therapeutic change. Heart is mildly enlarged but similar. Descending thoracic aortic aneurysm is unchanged measuring 4.5 cm. No mediastinal adenopathy is identified. Left nephrolithiasis again noted. No pneumothorax or pleural effusion is seen. Linear opacities seen in the lung bases are likely discoid atelectasis or scarring are similar. Scattered punctate 1 2 mm nodules are unchanged. Slightly more prominent nodule in the inferior right lower lobe is less prominent in the interim now measuring between 2 and 3 mm. Mild thickening of the left adrenal gland is unchanged. Upper abdomen otherwise stable. No acute osseous changes are identified. IMPRESSION: 1. Change in morphology and left upper lobe opacity in the interim as described above. Continued surveillance recommended. 2. Slight decrease in size, right lower lobe nodule in the interim 3. Stable ascending thoracic aortic aneurysm. CT DOSING PQRS STATEMENT: One or more of the following individualized dose reduction techniques were utilized for this examination: 1. Automated exposure control 2. Adjustment of the mA and/or kV according to patient size 3. Use of iterative reconstruction technique Electronically signed by: Johny Mixon MD (12/22/2018 2:44 PM) [id number]
== END ==
LOC: CT 10:01
PROVIDERS: ATTEND Internal Medicine Hematology & Oncology
DX: I71.2 Thoracic aortic aneurysm, without rupture (principal); N20.0 Calculus of kidney; R91.8 Other nonspecific abnormal finding of lung field; Z85.118 Personal history of other malignant neoplasm of bronchus and lung
CPT/HCPCS: 71260; Q9967

== ENCOUNTER 2019-01-16 21:20 | Emergency (ER) | payer BC ==
[~2019-01-16] VITALS: Ht 165.1 cm; Wt 86.6 kg
[~2019-01-16 21:20] MED LIST changes: -CONTRAST GIVEN. MC PRN; -IOHEXOL 300 MG/ML 100ML VIAL. IV ONE
[2019-01-16] MEDS ORDERED: HYDROcodone/APAP 5/325MG 1 TAB TABLET PO ONE (22:30)
--- NOTE | 2019-01-16 22:39 | PHYS DOC ---
Past Medical History Past Medical History: A-Fib, Arthritis, Depression, Hypertension, Hypothyroid Additional Past Medical Histor: Atrial flutter, RA, LUNG CA, OSTEOPOROSIS Past Surgical History: Cholecystectomy, Hip Replacement, Knee Replacement Additional Past Surgical Histo: AORITC VALVE REPLACEMENT Alcohol Use: None Drug Use: None Adult General Chief Complaint Chief Complaint: MECHANICAL FALL HPI HPI Patient is a 78 year old [female] who presents with [mechanical fall on thursday with back and side pain]. Pt reports falling out of her bed onto carpeted floor and believes she hit her side on the bed frame or a wooden chair. She states the pain has been worsening and she came in today because it was "unbearable" rated a 10/10 that is described as a sharp stabbing located predominantly on her ribs, starting 4-5 cm lateral to her spine, around T8-9 down to L2. She denies hitting her head. She denies chest pain, abdominal pain, shortness of breath, headache, dysuria/hematuria, diarrhea, nausea or vomiting. Review of Systems Review of Systems Constitutional: Denies fever or chills Eyes: Denies change in visual acuity, redness, or eye pain HENT: Denies nasal congestion or sore throat Respiratory: Denies cough or shortness of breath Cardiovascular: No additional information not addressed in HPI GI: Denies abdominal pain, nausea, vomiting, bloody stools or diarrhea : Denies dysuria or hematuria Musculoskeletal: Admits back and right-sided pain Integument: Denies rash or skin lesions Neurologic: Denies headache, focal weakness or sensory changes Endocrine: Denies polyuria or polydipsia All other systems were reviewed and found to be within normal limits, except as documented in this note. Current Medications Current Medications Current Medications Medications (Trade) Dose Ordered Sig/Vikram Start Time Stop Time Status Last Admin Dose Admin Acetaminophen/ Hydrocodone Bitart (Lortab 5/325) 2 tab 1X ONCE 01/16/19 22:30 01/16/19 22:31 DC 01/16/19 22:32 2 TAB Allergies Allergies Allergies Coded Allergies Type Severity Reaction Last Updated Verified phenobarbital Adverse Reaction Intermediate HALLUCINATIONS 12/09/17 Yes Physical Exam Physical Exam Constitutional: Well developed, well nourished, no acute distress, non-toxic appearance. HENT: Normocephalic, atraumatic, bilateral external ears normal, oropharynx moist, no oral exudates, nose normal. Eyes: PERRLA, EOMI, conjunctiva normal, no discharge. Neck: Normal range of motion, no tenderness, supple, no stridor. Cardiovascular:Heart rate regular rhythm, no murmur Lungs & Thorax: Bilateral breath sounds clear to auscultation Abdomen: Bowel sounds normal, soft, no tenderness, no masses, no pulsatile masses. Skin: Warm, dry, no erythema, no rash. No bruising noted at site of trauma. Back: Tender to palpation around the ribs on the right side (by the rib angles) of T8-T12. No point tenderness on palpation of the spinous processes or transverse processes of the thoracic spine and upper lumbar spine. Extremities: No tenderness, no cyanosis, no clubbing, ROM intact, no edema. Neurologic: Alert and oriented X 3, normal motor function, normal sensory function, no focal deficits noted. Psychologic: Affect normal, judgement normal, mood normal. Current Patient Data Vital Signs Vital Signs Date Time Temp Pulse Resp B/P (MAP) Pulse Ox O2 Delivery O2 Flow Rate FiO2 01/16/19 22:32 20 BP 160'S HR 108 SAT NORMAL ON RA, SEE NURSES NOTE FOR FULL VITALS EKG EKG [] Radiology/Procedures Radiology/Procedures [] Impressions: MY READ XRAY NO OBVIOUS FRACTURE NOTED UPPER BROOKE OPACITY THIS IS THE ASYMPOMTIC SIDE, PROBABLY ATELECTASIS, PT HAS NO COUG OR FEVER Course & Med Decision Making Course & Med Decision Making Pertinent Labs and Imaging studies reviewed. (See chart for details) [Pt is a 78 yo female presenting with right sided back pain starting after a mechanical fall on thursday, LIKELY MSK RELATED RIB CONTUSION CXR NEGATIVE FOR FRACTURE.. The pain is located on the right side around T8-T12 on the ribs, about 5 cm lateral to the spine. She has a history of osteoarthritis and rheumatoid arthritis. She had no bruising of the skin at the site of trauma. She denies blood in her urine or stool. Her pain was reproducible with palpation and did not radiate to the groin. Given her history of OA/RA and reproducible pain, a CXR was ordered to r/o fracture of the ribs.PT HAS NO GROSS HEMATURIA BY HISTORY, MISSED HAT LOW SUSPICION FOR RENAL INJURY. Pt was prescribed fentanyl for her pain. Dragon Disclaimer Dragon Disclaimer This electronic medical record was generated, in whole or in part, using a voice recognition dictation system. Departure Departure Impression: Primary Impression: Rib contusion Disposition: 01 HOME, SELF-CARE Condition: STABLE Referrals: AN KINNEY (PCP) Scripts Hydrocodone/Apap 5-325 (NORCO 5-325 TABLET) 1 Each Tablet 1-2 EACH PO PRN Q6HRS PRN for PAIN, #15 as needed for pain Prov: RICCO KENNEY MD 01/16/19 RICCO KENNEY MD Jan 16, 2019 22:39
[2019-01-16 23:00] VITALS: BP 167/75
[2019-01-16] MEDS ORDERED: HYDR-3164 PO (23:44)
--- NOTE | 2019-01-17 05:58 | RAD ---
PA chest radiograph to include a right rib series 01/16/2019 CLINICAL HISTORY: Injury to the right ribs. A PA digital radiograph of the chest was obtained. 2 AP and an oblique digital radiographs of the right ribs were obtained. Comparison study is dated 04/05/2018. The patient is post cardiac valve replacement. The cardiac silhouette is mildly enlarged. The thoracic aorta is tortuous. Subsegmental atelectasis and/or scarring is seen involving the left lower lobe. An area of scarring is seen involving the left upper lobe. The right arm PICC has been removed. No area of consolidation is seen. No pleural effusion or pneumothorax is noted. Segmental atelectasis is seen involving the right upper lobe. Degenerative changes are seen involving the thoracic spine. No right-sided rib fracture is seen. Surgical clips are seen within the right upper quadrant of the abdomen consistent with a cholecystectomy. IMPRESSION: No right-sided rib fracture is seen. Electronically signed by: Santino Alvarez MD (01/17/2019 5:55 AM) [facility]
== END 2019-01-16 23:50 | disposition home or self-care (01) ==
LOC: ER 21:20
DX: S20.211A Contusion of right front wall of thorax, initial encounter (principal); M54.5 Low back pain; M54.6 Pain in thoracic spine; I48.91 Unspecified atrial fibrillation; I10 Essential (primary) hypertension; E03.9 Hypothyroidism, unspecified; Z90.49 Acquired absence of other specified parts of digestive tract; Z96.659 Presence of unspecified artificial knee joint; Z96.649 Presence of unspecified artificial hip joint; Z85.118 Personal history of other malignant neoplasm of bronchus and lung; Z88.8 Allergy status to other drugs, medicaments and biological substances; W06.XXXA Fall from bed, initial encounter; Y93.89 Activity, other specified; Y92.89 Other specified places as the place of occurrence of the external cause; Y99.8 Other external cause status
CPT/HCPCS: 71101; 99284

== ENCOUNTER 2019-02-20 19:11 | Emergency (ER) | payer BC ==
[~2019-02-20] VITALS: Ht 149.9 cm; Wt 87.1 kg
--- NOTE | 2019-02-20 19:54 | PHYS DOC ---
Past Medical History Past Medical History: A-Fib, Arthritis, Depression, Hypertension, Hypothyroid Additional Past Medical Histor: Atrial flutter, RA, LUNG CA, OSTEOPOROSIS Past Surgical History: Cholecystectomy, Hip Replacement, Knee Replacement Additional Past Surgical Histo: AORITC VALVE REPLACEMENT Additional Information: PT. QUIT SMOKING IN 1995 Alcohol Use: None Drug Use: None Adult General Chief Complaint Chief Complaint: MECHANICAL FALL HPI HPI Patient is a 78 year old female with history of atrial fibrillation currently on anticoagulation who presents with accidental fall with head injury. Patient reports dizziness and being off balance for the past 2 days. She states she has been stumbling when not using her walker and accidentally fell 1 hour prior to ED arrival. Patient fell backwards striking the top of her head. Denies loss of consciousness, headache and neck pain. Reports soreness in hematoma to impacted area. Patient denies nausea, vomiting. No chest pain or shortness of breath. Denies extremity weakness, loss of sensation. No other strokelike symptoms. Denies urinary frequency urgency and burning. Patient's blood pressure is 211/100. Age she is compliant with her reactive blood pressure medications and that her blood pressure medication is normally well controlled.[] Review of Systems Review of Systems ROS as per HPI All other systems were reviewed and found to be within normal limits, except as documented in this note. Current Medications Current Medications Current Medications Medications (Trade) Dose Ordered Sig/Vikram Start Time Stop Time Status Last Admin Dose Admin Fentanyl Citrate (Fentanyl 2ml Vial) 50 mcg 1X ONCE 02/20/19 21:30 02/20/19 21:31 DC 02/20/19 21:19 50 MCG Meclizine HCl (Antivert) 25 mg 1X ONCE 02/20/19 22:00 02/20/19 22:01 02/20/19 21:45 25 MG Ondansetron HCl (Zofran) 4 mg 1X ONCE 02/20/19 21:30 02/20/19 21:31 DC Allergies Allergies Allergies Coded Allergies Type Severity Reaction Last Updated Verified phenobarbital Adverse Reaction Intermediate HALLUCINATIONS 12/09/17 Yes Physical Exam Physical Exam Constitutional: Well developed, well nourished, no acute distress, non-toxic appearance. [] HENT: Normocephalic, atraumatic, apical scalp hematoma without laceration, bilateral external ears normal, oropharynx moist, nose normal. [] Eyes: PERRLA, EOMI, conjunctiva normal, no discharge. Horizontal nystagmus lateral gaze, fatigues on exam. [] Neck: Normal range of motion, no tenderness. [] Cardiovascular:Heart rate regular rhythm, no murmur [] Lungs & Thorax: Bilateral breath sounds clear to auscultation. [] Abdomen: Bowel sounds normal, soft, no tenderness. [] Extremities: No tenderness. [] Neurologic: Alert and oriented X 3, cranial nerves II through XII grossly intact, normal motor function, normal sensory function, no focal deficits noted. [] Psychologic: Affect normal, judgement normal, mood normal. [] Current Patient Data Vital Signs Vital Signs Date Time Temp Pulse Resp B/P (MAP) Pulse Ox O2 Delivery O2 Flow Rate FiO2 02/20/19 21:19 95 Room Air 02/20/19 20:15 70 02/20/19 19:11 98.5 16 211/101 (137) 98.5 Lab Values Laboratory Tests Test 02/20/19 19:25 02/20/19 20:10 White Blood Count 5.1 x10^3/uL (4.0-11.0) Red Blood Count 3.86 x10^6/uL (3.50-5.40) Hemoglobin 12.4 g/dL (12.0-15.5) Hematocrit 37.5 % (36.0-47.0) Mean Corpuscular Volume 97 fL (79-100) Mean Corpuscular Hemoglobin 32 pg (25-35) Mean Corpuscular Hemoglobin Concent 33 g/dL (31-37) Red Cell Distribution Width 17.7 % (11.5-14.5) H Platelet Count 177 x10^3/uL (140-400) Neutrophils (%) (Auto) 54 % (31-73) Lymphocytes (%) (Auto) 33 % (24-48) Monocytes (%) (Auto) 12 % (0-9) H Eosinophils (%) (Auto) 1 % (0-3) Basophils (%) (Auto) 0 % (0-3) Neutrophils # (Auto) 2.8 x10^3/uL (1.8-7.7) Lymphocytes # (Auto) 1.7 x10^3/uL (1.0-4.8) Monocytes # (Auto) 0.6 x10^3/uL (0.0-1.1) Eosinophils # (Auto) 0.1 x10^3/uL (0.0-0.7) Basophils # (Auto) 0.0 x10^3/uL (0.0-0.2) Sodium Level 141 mmol/L (136-145) Potassium Level 3.7 mmol/L (3.5-5.1) Chloride Level 101 mmol/L (98-107) Carbon Dioxide Level 31 mmol/L (21-32) Anion Gap 9 (6-14) Blood Urea Nitrogen 17 mg/dL (7-20) Creatinine 1.0 mg/dL (0.6-1.0) Estimated GFR (Cockcroft-Gault) 53.5 BUN/Creatinine Ratio 17 (6-20) Glucose Level 92 mg/dL (70-99) Calcium Level 9.6 mg/dL (8.5-10.1) Total Bilirubin 0.3 mg/dL (0.2-1.0) Aspartate Amino Transferase (AST) 22 U/L (15-37) Alanine Aminotransferase (ALT) 23 U/L (14-59) Alkaline Phosphatase 62 U/L (46-116) Troponin I Quantitative < 0.017 ng/mL (0.000-0.055) IZ-[id number]-Type Natriuretic Peptide 2509 pg/mL (0-449) H Total Protein 7.3 g/dL (6.4-8.2) Albumin 3.7 g/dL (3.4-5.0) Albumin/Globulin Ratio 1.0 (1.0-1.7) Urine Collection Type Unknown Urine Color Yellow Urine Clarity Clear Urine pH 5.0 Urine Specific [place] 1.010 Urine Protein Negative mg/dL (NEG-TRACE) Urine Glucose (UA) Negative mg/dL (NEG) Urine Ketones (Stick) Negative mg/dL (NEG) Urine Blood Trace (NEG) Urine Nitrite Negative (NEG) Urine Bilirubin Negative (NEG) Urine Urobilinogen Dipstick 0.2 mg/dL (0.2 mg/dL) Urine Leukocyte Esterase Negative (NEG) Urine RBC 0 /HPF (0-2) Urine WBC 0 /HPF (0-4) Urine Squamous Epithelial Cells Few /LPF Urine Bacteria 0 /HPF (0-FEW) Urine Hyaline Casts Moderate /HPF Urine Mucus Slight /LPF Laboratory Tests 02/20/19 19:25 Laboratory Tests 02/20/19 19:25 EKG EKG [EKG: reviewed] Radiology/Procedures Radiology/Procedures [CT head/cervical spine: No signs of fracture or acute intracranial disease per radiology report.] Course & Med Decision Making Course & Med Decision Making Pertinent Labs and Imaging studies reviewed. (See chart for details) [Patient was evaluated emergency department for dizziness, fall injury. Dizziness is positional described as vertigo. Patient does not have any lateralizing or localizing signs. States she had previous positional vertigo successfully treated by physical therapy. CT had/cervical spine negative, headache or pressure improved with treatment. Patient ambulates with steady gait with use walker. Recommendations are supportive care, PCP follow-up and consistent walker use.] Dragon Disclaimer Dragon Disclaimer This electronic medical record was generated, in whole or in part, using a voice recognition dictation system. Departure Departure Impression: Primary Impression: Minor head injury Additional Impression: Positional vertigo Disposition: ADMITTED INPATIENT Condition: IMPROVED Referrals: AN KINNEY (PCP) Patient Instructions: Concussion and Brain Injury, [id number], Vertigo Additional Instructions: You were evaluated in the emergency department for dizziness injury. CT, EKG and lab were performed and are non-dx. Your symptoms are consistent concussion and positional vertigo. Scripts Meclizine Hcl (MECLIZINE HCL) 25 Mg Tablet 1 TAB PO PRN TID, #30 TAB Prov: TANESHA MOREL DO 02/20/19 Problem Qualifiers TANESHA MOREL DO Feb 20, 2019 19:54
[2019-02-20 19:58] LABS: BASO % 0 % (0-3); EOS # 0.1 x10^3/uL (0.0-0.7); EOS % 1 % (0-3); HEMATOCRIT 37.5 % (36.0-47.0); HEMOGLOBIN 12.4 g/dL (12.0-15.5); LYMPH # 1.7 x10^3/uL (1.0-4.8); LYMPH % 33 % (24-48); MEAN CORPUSCULAR HEMOGLOBIN 32 pg (25-35); MEAN CORPUSCULAR HGB CONC 33 g/dL (31-37); MEAN CORPUSCULAR VOLUME 97 fL (79-100); MONO # 0.6 x10^3/uL (0.0-1.1); MONO % 12 % (0-9); NEUT # 2.8 x10^3/uL (1.8-7.7); NEUT % 54 % (31-73); PLATELET COUNT 177 x10^3/uL (140-400); RED BLOOD COUNT 3.86 x10^6/uL (3.50-5.40); RED CELL DISTRIBUTION WIDTH 17.7 % (11.5-14.5); WHITE BLOOD COUNT 5.1 x10^3/uL (4.0-11.0)
[2019-02-20] MEDS ORDERED: ONDANSETRON PF 4 MG/2 ML VIAL. IV ONE ×2 (20:00→21:30)
[2019-02-20 20:09] LABS: CALCIUM 9.6 mg/dL (8.5-10.1); GFR 53.5; POTASSIUM 3.7 mmol/L (3.5-5.1)
[2019-02-20 20:14] LABS: ALBUMIN 3.7 g/dL (3.4-5.0); TOTAL BILIRUBIN 0.3 mg/dL (0.2-1.0); TOTAL PROTEIN 7.3 g/dL (6.4-8.2)
[2019-02-20 20:17] LABS: BILIRUBIN,URINE NEGATIVE (NEG); CLARITY,URINE CLEAR; COLOR,URINE YELLOW; NITRITE,URINE NEGATIVE (NEG); PROTEIN,URINE NEGATIVE (NEG-TRACE); UROBILINOGEN,URINE 0.2 mg/dL (0.2 mg/dL)
[2019-02-20 20:26] LABS: HYALINE CASTS, URINE MODERATE /HPF; SQUAMOUS EPITHELIAL CELL,UR FEW /LPF
[2019-02-20 20:27] LABS: BACTERIA,URINE 0 /HPF (0-FEW); RBC,URINE 0 /HPF (0-2); WBC,URINE 0 /HPF (0-4)
--- NOTE | 2019-02-20 21:06 | RAD ---
CT head without contrast. CT cervical spine without contrast. PQRS statement: CT scans at this facility use dose reduction including either automated exposure control, iterative reconstructions, and /or weight based radiation dosing via mA and kV modification when appropriate to reduce radiation dose to as low as reasonably achievable. HISTORY: Trauma, fall. TECHNIQUE: Noncontrast CT imaging of the head cervical spine multiplanar reconstructions. COMPARISON: CT head and cervical spine February 09, 2018. CT head findings: Mild generalized brain atrophy is stable. No intracranial hemorrhage, mass, hydrocephalus, or infarction. No acute ischemic change. There is a 1.5 cm oval subcutaneous mildly dense lesion of the left occipital scalp stable to prior exam presumably a small epidermoid or other chronic benign lesion. Orbits, mastoids and bones are unremarkable. IMPRESSION: No acute intracranial CT abnormality. Stable exam. CT cervical spine findings: Craniocervical junction intact. 2 mm anterolisthesis C3 on C4 associated with disc disease and facet arthritis is stable. No facet subluxation or dislocation. There is slight widening of the C3-C4 interspinous space between the lamina which is stable, perhaps due to an old injury of the ligament flavum. No fracture of the cervical spine. Small C7 cervical ribs. Multilevel cervical disc height loss, disc bulges, endplate spurs and uncovertebral and facet spurs with spinal canal and neural foraminal stenoses grossly stable. Lung apices and paraspinal tissues are unremarkable. IMPRESSION: No acute osseous injury of the cervical spine. Stable exam as described above. Electronically signed by: Jared Huddleston MD (02/20/2019 9:03 PM) [facility]
[2019-02-20] MEDS ORDERED: fentaNYL PF VIAL 100 MCG/2 ML VIAL IV ONE (21:30)
[2019-02-20] MEDS ORDERED: MECL25TA3 PO (21:57)
[2019-02-20 22:00] VITALS: BP 187/84
[2019-02-20] MEDS ORDERED: MECLIZINE HCL 12.5 MG TABLET. PO ONE (22:00)
--- NOTE | 2019-02-21 07:10 | EKG ---
[facility] [address] [place] [address] Test Date: 2019-02-20 Test Time: 19:16:13 Pat Name: DAVE BRUNO Department: Room: Gender: F [employer]: : [id number] Requested By: TANESHA MOREL Order Number: [id number] Reading MD: Steve Rouse MD Measurements Intervals [place] Rate: 72 P: MS: QRS: -21 QRSD: 90 T: 20 QT: 384 QTc: 422 Interpretive Statements ATRIAL FIBRILLATION WITH CONTROLLED VENTRICULAR RESPONSE NON-SPECIFIC ST/T CHANGES Electronically Signed On 02-25-2019 9:50:24 CDT by Steve Rouse MD
== END 2019-02-20 23:05 | disposition home or self-care (01) ==
LOC: ER 19:11
DX: S00.03XA Contusion of scalp, initial encounter (principal); R42 Dizziness and giddiness; Z88.8 Allergy status to other drugs, medicaments and biological substances; I48.91 Unspecified atrial fibrillation; M19.90 Unspecified osteoarthritis, unspecified site; F32.9 Major depressive disorder, single episode, unspecified; I10 Essential (primary) hypertension; E03.9 Hypothyroidism, unspecified; Z90.49 Acquired absence of other specified parts of digestive tract; Z96.649 Presence of unspecified artificial hip joint; Z96.659 Presence of unspecified artificial knee joint; Z87.891 Personal history of nicotine dependence
CPT/HCPCS: 36415; 70450; 72125; 80053; 81001; 83880; 84484; 85025; 93005; 96374; 96375; 99285; J2405; J3010; J8597

== ENCOUNTER 2019-06-13 20:18 | Emergency (ER) | payer BC ==
[~2019-06-13] VITALS: Ht 152.4 cm; Wt 88.0 kg
[~2019-06-13 20:18] MED LIST changes: +BUDE10.2 IH; -DILT120C85 PO; +DILT120C99 PO; +MECL25TA3 PO; +POTASSIUM CHLO10 ME1 PO
--- NOTE | 2019-06-13 20:53 | PHYS DOC ---
Past Medical History Past Medical History: A-Fib, Arthritis, Depression, Hypertension, Hypothyroid Additional Past Medical Histor: Atrial flutter, RA, LUNG CA, OSTEOPOROSIS Past Surgical History: Cholecystectomy, Hip Replacement, Knee Replacement Additional Past Surgical Histo: AORITC VALVE REPLACEMENT Alcohol Use: None Drug Use: None Adult General Chief Complaint Chief Complaint: MECHANICAL FALL HPI HPI 78-year-old female presents to the emergency department after fall via EMS. Patient states she was in her kitchen making dinner she subsequently fell onto the right side she hit her head. She denies any loss of consciousness or neck pain. She denies any nausea or vomiting. Patient describes headache with right forehead hematoma, chest pain with deep breath on the right side. Nothing makes her symptoms worse, nothing makes her symptoms better. Review of Systems Review of Systems Constitutional: Denies fever or chills [] Eyes: Denies change in visual acuity, redness, or eye pain [] HENT: Denies nasal congestion or sore throat [] Respiratory: Denies cough or shortness of breath [] Cardiovascular: No additional information not addressed in HPI [] GI: Denies abdominal pain, nausea, vomiting, bloody stools or diarrhea [] : Denies dysuria or hematuria [] Musculoskeletal: Denies back pain or joint pain [] Integument: Denies rash or skin lesions [] Neurologic: + headache, no focal weakness or sensory changes [] All other systems were reviewed and found to be within normal limits, except as documented in this note. Allergies Allergies Allergies Coded Allergies Type Severity Reaction Last Updated Verified phenobarbital Adverse Reaction Intermediate HALLUCINATIONS 12/09/17 Yes Physical Exam Physical Exam Constitutional: Well developed, well nourished, no acute distress, non-toxic appearance. [] HENT: Normocephalic, atraumatic, bilateral external ears normal, oropharynx moist, no oral exudates, nose normal. [] Eyes: PERRLA, EOMI, conjunctiva normal, no discharge. [] Neck: Normal range of motion, no tenderness, supple, no stridor. [] Cardiovascular: Irregularly Irregular Lungs & Thorax: Bilateral breath sounds clear to auscultation, tender to palpation on right side of chest [] Abdomen: Bowel sounds normal, soft, no tenderness, no masses, no pulsatile ma sses. [] Skin: Warm, dry, no erythema, no rash. [] Back: No tenderness, no CVA tenderness. [] Extremities: No tenderness, no edema. [] Neurologic: Alert and oriented X 3, no focal deficits noted. [] Psychologic: Affect normal, judgement normal, mood normal. [] Current Patient Data Vital Signs Vital Signs Date Time Temp Pulse Resp B/P (MAP) Pulse Ox O2 Delivery O2 Flow Rate FiO2 06/13/19 20:25 97.7 81 16 205/92 (129) 96 Room Air 97.7 Lab Values Laboratory Tests Test 06/13/19 21:00 06/13/19 21:30 White Blood Count 7.6 x10^3/uL (4.0-11.0) Red Blood Count 3.68 x10^6/uL (3.50-5.40) Hemoglobin 12.0 g/dL (12.0-15.5) Hematocrit 36.4 % (36.0-47.0) Mean Corpuscular Volume 99 fL (79-100) Mean Corpuscular Hemoglobin 33 pg (25-35) Mean Corpuscular Hemoglobin Concent 33 g/dL (31-37) Red Cell Distribution Width 17.1 % (11.5-14.5) H Platelet Count 215 x10^3/uL (140-400) Neutrophils (%) (Auto) 65 % (31-73) Lymphocytes (%) (Auto) 28 % (24-48) Monocytes (%) (Auto) 6 % (0-9) Eosinophils (%) (Auto) 1 % (0-3) Basophils (%) (Auto) 1 % (0-3) Neutrophils # (Auto) 5.0 x10^3/uL (1.8-7.7) Lymphocytes # (Auto) 2.1 x10^3/uL (1.0-4.8) Monocytes # (Auto) 0.5 x10^3/uL (0.0-1.1) Eosinophils # (Auto) 0.1 x10^3/uL (0.0-0.7) Basophils # (Auto) 0.0 x10^3/uL (0.0-0.2) Prothrombin Time 13.6 SEC (11.7-14.0) Prothrombin Time INR 1.1 (0.8-1.1) Sodium Level 143 mmol/L (136-145) Potassium Level 4.0 mmol/L (3.5-5.1) Chloride Level 106 mmol/L (98-107) Carbon Dioxide Level 28 mmol/L (21-32) Anion Gap 9 (6-14) Blood Urea Nitrogen 29 mg/dL (7-20) H Creatinine 1.1 mg/dL (0.6-1.0) H Estimated GFR (Cockcroft-Gault) 47.9 BUN/Creatinine Ratio 26 (6-20) H Glucose Level 90 mg/dL (70-99) Calcium Level 9.1 mg/dL (8.5-10.1) Total Bilirubin 0.3 mg/dL (0.2-1.0) Aspartate Amino Transferase (AST) 87 U/L (15-37) H Alanine Aminotransferase (ALT) 87 U/L (14-59) H Alkaline Phosphatase 63 U/L (46-116) Total Protein 7.1 g/dL (6.4-8.2) Albumin 3.6 g/dL (3.4-5.0) Albumin/Globulin Ratio 1.0 (1.0-1.7) Laboratory Tests 06/13/19 21:00 Laboratory Tests 06/13/19 21:30 EKG EKG EKG reveals atrial fibrillation, heart rate 59, left axis deviation, no ST elevation [place] interpretation time 2039[] Radiology/Procedures Radiology/Procedures [facility] [address] [place] [address] IMAGING REPORT Signed PATIENT: DAVE BRUNO ACCOUNT: [id number] : 1940 LOCATION: ER AGE: 78 SEX: F EXAM STATUS: REG ER ORD. PHYSICIAN: KASSANDRA ROSENBERG MD REASON: fall, no LOC, + eliquis PROCEDURE: CT HEAD WO CONTRAST CT HEAD WO CONTRAST History: Fall, on blood thinner Comparison: February 20, 2019 Technique: Noncontrast CT imaging was performed of the head. Exposure: One or more of the following individualized dose reduction techniques were utilized for this examination: 1. Automated exposure control 2. Adjustment of the mA and/or kV according to patient size 3. Use of iterative reconstruction technique. Findings: There is no evidence of acute intracranial hemorrhage. There is no new midline shift. There is again ill-defined low-density greatest of the frontal parietal white matter. Ventricular size is stable, within normal limits. Visualized paranasal sinuses and mastoid air cells are aerated. There is right frontal scalp soft tissue gas and small scalp hematoma. Impression: 1. No acute intracranial abnormality is identified. Electronically signed by: Nereida Posey MD (06/13/2019 10:01 PM) [facility] DICTATED and SIGNED BY: NEREIDA POSEY MD DATE: 06/13/192200 [] Course & Med Decision Making Course & Med Decision Making Pertinent Labs and Imaging studies reviewed. (See chart for details) []78-year-old female presents to the emergency department after fall via EMS. Patient states she was in her kitchen making dinner she subsequently fell onto the right side she hit her head. She denies any loss of consciousness or neck pain. She denies any nausea or vomiting. Patient describes headache with right forehead hematoma, chest pain with deep breath on the right side. Nothing makes her symptoms worse, nothing makes her symptoms better. CT head negative for acute bleed Chest without evidence of acute process identified Recommend dc and follow up as outpatient No fracture identified Dragon Disclaimer Dragon Disclaimer This electronic medical record was generated, in whole or in part, using a voice recognition dictation system. Departure Departure Impression: Primary Impression: Fall Additional Impression: Rib contusion Disposition: 01 HOME, SELF-CARE Condition: STABLE Referrals: AN KINNEY (PCP) Patient Instructions: Chest Contusion, [id number], Fall Prevention and Home Safety, [id number] Additional Instructions: Recommend follow up with PCP 3 - 5 days Return to the ER with worsening symptoms, intractable pain, fever, altered mental status Tylenol/Motrin as needed for pain CT negative for acute process Problem Qualifiers Primary Impression: Fall Encounter type: initial encounter Qualified Codes: W19.XXXA - Unspecified fall, initial encounter Additional Impression: Rib contusion Encounter type: initial encounter Laterality: right Qualified Codes: S20.211A - Contusion of right front wall of thorax, initial encounter KASSANDRA ROSENBERG MD Jun 13, 2019 20:53
[2019-06-13 21:08] LABS: BASO % 1 % (0-3); EOS # 0.1 x10^3/uL (0.0-0.7); EOS % 1 % (0-3); HEMATOCRIT 36.4 % (36.0-47.0); LYMPH # 2.1 x10^3/uL (1.0-4.8); LYMPH % 28 % (24-48); MEAN CORPUSCULAR HEMOGLOBIN 33 pg (25-35); MEAN CORPUSCULAR HGB CONC 33 g/dL (31-37); MEAN CORPUSCULAR VOLUME 99 fL (79-100); MONO # 0.5 x10^3/uL (0.0-1.1); MONO % 6 % (0-9); NEUT % 65 % (31-73); PLATELET COUNT 215 x10^3/uL (140-400); RED BLOOD COUNT 3.68 x10^6/uL (3.50-5.40); RED CELL DISTRIBUTION WIDTH 17.1 % (11.5-14.5); WHITE BLOOD COUNT 7.6 x10^3/uL (4.0-11.0)
[2019-06-13 21:17] LABS: PROTHROMBIN TIME PATIENT 13.6 SEC (11.7-14.0)
[2019-06-13 21:48] LABS: CALCIUM 9.1 mg/dL (8.5-10.1); CREATININE 1.1 mg/dL (0.6-1.0); GFR 47.9
[2019-06-13 21:53] LABS: ALBUMIN 3.6 g/dL (3.4-5.0); TOTAL BILIRUBIN 0.3 mg/dL (0.2-1.0); TOTAL PROTEIN 7.1 g/dL (6.4-8.2)
--- NOTE | 2019-06-13 22:05 | RAD ---
CT HEAD WO CONTRAST History: Fall, on blood thinner Comparison: February 20, 2019 Technique: Noncontrast CT imaging was performed of the head. Exposure: One or more of the following individualized dose reduction techniques were utilized for this examination: 1. Automated exposure control 2. Adjustment of the mA and/or kV according to patient size 3. Use of iterative reconstruction technique. Findings: There is no evidence of acute intracranial hemorrhage. There is no new midline shift. There is again ill-defined low-density greatest of the frontal parietal white matter. Ventricular size is stable, within normal limits. Visualized paranasal sinuses and mastoid air cells are aerated. There is right frontal scalp soft tissue gas and small scalp hematoma. Impression: 1. No acute intracranial abnormality is identified. Electronically signed by: Eyad Francis MD (06/13/2019 10:01 PM) [facility]
--- NOTE | 2019-06-14 00:27 | RAD ---
CHEST AP ONLY History: Right-sided chest pain after a fall, history of lung cancer Comparison: January 16, 2019 Findings: Single view of the chest is submitted. Previously seen left upper lobe opacity is less prominent. There has been median sternotomy. Pericardial cardiac silhouette is enlarged although unchanged. There is atherosclerotic calcification near aortic arch. No pneumothorax, new lobar consolidation, or pleural fluid is identified. Impression: 1. No acute radiographic abnormality is identified. Previously seen left upper lobe opacity has decreased. Electronically signed by: Eyad Francis MD (06/14/2019 12:24 AM) [facility]
[2019-06-14 00:30] VITALS: BP 195/82
--- NOTE | 2019-06-14 08:36 | EKG ---
[facility] [address] [place] [address] Test Date: 2019-06-13 Test Time: 20:40:33 Pat Name: DAVE BRUNO Department: Room: Gender: F Respiratory Clinician: : 1940 Requested By: KASSANDRA ROSENBERG Order Number: [id number] Reading MD: Steve Rouse MD Measurements Intervals [place] Rate: 58 P: VA: QRS: -19 QRSD: 92 T: 8 QT: 396 QTc: 396 Interpretive Statements ATRIAL FIBRILLATION VENTRICULAR PREMATURE COMPLEX(ES) NON-SPECIFIC ST/T CHANGES Electronically Signed On 06-14-2019 13:32:39 [employer] [employer]NER by Steve Rouse MD
== END 2019-06-14 01:06 | disposition home or self-care (01) ==
LOC: ER 20:18
DX: S20.211A Contusion of right front wall of thorax, initial encounter (principal); R51 Headache; M19.90 Unspecified osteoarthritis, unspecified site; I48.91 Unspecified atrial fibrillation; I10 Essential (primary) hypertension; E03.9 Hypothyroidism, unspecified; Z88.8 Allergy status to other drugs, medicaments and biological substances; W18.09XA Striking against other object with subsequent fall, initial encounter; Y93.G3 Activity, cooking and baking; Y92.090 Kitchen in other non-institutional residence as the place of occurrence of the external cause; Y99.8 Other external cause status
CPT/HCPCS: 36415; 70450; 71045; 80053; 85025; 85610; 93005; 99285

== ENCOUNTER → 2019-07-12 | Outpatient (CLI) | payer BC ==
[2019-06-14 00:30] VITALS: BP 195/82
[~2019-07-12] MED LIST changes: +CONTRAST GIVEN. MC PRN; +MECL-75 PO; -MECL25TA3 PO
[2019-07-12 09:47] LABS: ALBUMIN 3.8 g/dL (3.4-5.0); ALBUMIN/GLOBULIN RATIO 1.4 (1.0-1.7); CALCIUM 8.9 mg/dL (8.5-10.1); CREATININE 0.8 mg/dL (0.6-1.0); GFR 69.2; POTASSIUM 4.9 mmol/L (3.5-5.1); TOTAL BILIRUBIN 0.4 mg/dL (0.2-1.0); TOTAL PROTEIN 6.6 g/dL (6.4-8.2)
[2019-07-12] MEDS: IOHEXOL 300 MG/ML 100ML VIAL. IV ONE (10:00)
--- NOTE | 2019-07-12 17:03 | RAD ---
Examination: CT CHEST W/CONTRAST History: Malignant left lung neoplasm Comparison/Correlation: 03/24/2019 CT chest with contrast Findings: Axial images of chest were obtained following IV contrast. Sagittal and coronal reformatted images were provided. Sternal wires are present. Epicardial leads noted. Dilated cardiomegaly is present. Prosthetic aortic valve is present. Ascending thoracic aortic aneurysm measuring 4.5 cm diameter is present. No pleural or pericardial effusion. Moderate size hiatal hernia noted. Minimal right posterior basilar linear atelectasis is present. Linear scarring/mass at the posterior left apical level is unchanged in size. Decreased enhancement noted since prior exam involving this finding. Punctate nodules involving the right lateral patellofemoral level noted. Other punctate nodules also are present but fewer in number involving the left lung. These are stable. No suspicious new nodule or mass. No suspicious infiltrate in the interval. Bony structures are unremarkable for the patient's age. Impression: Posterior left apical mass/scarring is similar in size compared to the prior exam. No suspicious nodule or mass. No enlarged thoracic lymph nodes. Hiatal hernia. Ascending thoracic aortic aneurysm is stable. PQRS Compliance Statement: One or more of the following individualized dose reduction techniques were utilized for this examination: 1. Automated exposure control 2. Adjustment of the mA and/or kV according to patient size 3. Use of iterative reconstruction technique Electronically signed by: Demetrius Cisneros MD (07/12/2019 5:00 PM) [facility]
== END | disposition home or self-care (01) ==
LOC: CT 09:50
PROVIDERS: ATTEND Internal Medicine Hematology & Oncology
DX: C34.12 Malignant neoplasm of upper lobe, left bronchus or lung (principal); J98.11 Atelectasis; I71.2 Thoracic aortic aneurysm, without rupture; K44.9 Diaphragmatic hernia without obstruction or gangrene; I51.7 Cardiomegaly; Z95.2 Presence of prosthetic heart valve
CPT/HCPCS: 36415; 71260; 80053; Q9967

== ENCOUNTER → 2020-01-17 | Outpatient (CLI) | payer BC ==
[~2020-01-17] MED LIST changes: -CONTRAST GIVEN. MC PRN; +LEVO-101 PO; -LEVO100T PO
--- NOTE | 2020-01-17 16:18 | RAD ---
CT CHEST WO CONTRAST Indication: Lung adenocarcinoma Technique: Noncontrast CT imaging was performed of the chest, multiplanar reconstruction images submitted. One or more of the following individualized dose reduction techniques were utilized for this examination: 1. Automated exposure control 2. Adjustment of the mA and/or kV according to patient size 3. Use of iterative reconstruction technique. Comparison: July 12, 2019; 08/24/2018 Findings: Focus of noncalcified parenchymal somewhat bandlike appearing density posteriorly of the left upper lobe best seen image 14 series 2 about 3.3 cm AP by 3.3 cm transverse by 0.6 cm CC is similar. Some scattered small foci of subpleural density near the right apex are unchanged. Small foci of groundglass nodularity of the right upper lobe image 15 series 2 are stable, largest of these about 0.3 cm., Another tiny right upper lobe nodules are also stable such as seen on images 15 and 18 series 2. 0.2 cm right lower lobe nodule image 32 series 2 is similar. 0.2 cm right lower lobe nodule is 36 is similar. 0.5 cm right lower lobe nodule image 29 is similar. No new suspicious pulmonary nodularity is identified. There again has been a median sternotomy. There is aortic valvular prosthesis. There is dilatation of the tubular ascending thoracic aorta about 4.5 cm fairly similar. There is coronary calcification. No new significantly enlarged nodes are identified of the chest. There is again small moderate size hiatal hernia, nonspecific wall thickening of involved segment. There are fat-containing Bochdalek hernias bilaterally. There is a large ventral hernia of the visualized superior abdomen as seen previously, anterior wall of the transverse colon near the margin. Neck of the hernia is estimated at least 5.2 cm transverse. There is an adjacent although apparently separate right ventral fat-containing hernia of the superior abdomen best seen image 59 series 2 with neck about 2 cm transverse. There is adjacent although likely separate ventral fat-containing hernia of the superior abdomen near the midline image 57 series 2 with neck about 2.1 cm transverse. There is 0.4 cm inferior left renal calculus. Heart is enlarged. IMPRESSION: 1. Findings are unchanged dating back to December 2018 exam. There is similar bandlike density of the left upper lobe and small pulmonary nodules. No new suspicious pulmonary nodularity or significant chest lymphadenopathy is identified. 2. There is again aneurysmal dilatation of the tubular ascending thoracic aorta. 3. There are again fat-containing ventral hernias of the superior abdomen. 4. There is hiatal hernia. 5. There is again left superior renal calculus. 6. Heart is enlarged. There is coronary calcification. Electronically signed by: Eyad Francis MD (01/17/2020 4:15 PM) [id number]
== END | disposition home or self-care (01) ==
LOC: CT 11:24
PROVIDERS: ATTEND Radiology Radiation Oncology
DX: C34.31 Malignant neoplasm of lower lobe, right bronchus or lung (principal); R91.1 Solitary pulmonary nodule; I71.2 Thoracic aortic aneurysm, without rupture; K43.9 Ventral hernia without obstruction or gangrene; K44.9 Diaphragmatic hernia without obstruction or gangrene; N20.0 Calculus of kidney; I25.10 Atherosclerotic heart disease of native coronary artery without angina pectoris; I51.7 Cardiomegaly
CPT/HCPCS: 71250

== ENCOUNTER 2020-02-25 18:10 | Inpatient (IN) | payer BC ==
[~2020-02-25] VITALS: Ht 152.4 cm; Wt 86.2 kg
[~2020-02-25 18:10] MED LIST changes: -ASPI-612 PO; +ASPI-886 PO
--- NOTE | 2020-02-25 19:17 | PHYS DOC ---
Past Medical History Past Medical History: A-Fib, Arthritis, Depression, Hypertension, Hypothyroid Additional Past Medical Histor: Atrial flutter, RA, LUNG CA, OSTEOPOROSIS Past Surgical History: Cholecystectomy, Hip Replacement, Knee Replacement Additional Past Surgical Histo: AORITC VALVE REPLACEMENT Smoking Status: Former Smoker Alcohol Use: None Drug Use: None General Adult EDM: Chief Complaint: MECHANICAL FALL HPI: HPI: Patient is an 79-year-old female who presents to the emergency room after having a fall at home. Patient states at 4 AM this morning she got up to the bathroom and tripped over a laundry basket. She denies any chest pain, dizziness, syncope. She states she did not lose consciousness. She denies headache or neck pain. She states she laid on the floor all day because she was unable to get up due to severe right sided pain along her waistline. She states it hurts in the front and the back. She states that when she breathes she feels this clicking movement. She denies increased pain with breathing. She states she called at all day but no one heard her until this evening. She denies any other complaints. Review of Systems: Review of Systems: General: Denies fever, chills, sweats, fatigue Eyes: Denies drainage, blurred vision, eye redness HENT: Denies rhinorrhea, sore throat, earache Respiratory: Denies cough, shortness of breath, wheezing Cardiac: Denies edema, palpitations. Reports chest pain GI: Denies abdominal pain, Nausea, vomiting MSK: Denies back pain, neck pain Skin: Denies rash, jaundice Neuro: Denies headache, dizziness Psychiatric: Denies SI/HI Heart Score: Risk Factors: Risk Factors: DM, Current or recent (<one month) smoker, HTN, HLP, family history of CAD, obesity. Risk Scores: Score 0 - 3: 2.5% MACE over next 6 weeks - Discharge Home Score 4 - 6: 20.3% MACE over next 6 weeks - Admit for Clinical Observation Score 7 - 10: 72.7% MACE over next 6 weeks - Early Invasive Strategies Allergies: Allergies: Allergies Coded Allergies Type Severity Reaction Last Updated Verified phenobarbital Adverse Reaction Intermediate HALLUCINATIONS 12/09/17 Yes Physical Exam: PE: General: Awake, alert, NAD. Well Nourished, well hydrated. Cooperative HEENT: Atraumatic, EOMI, PERRL, airway patent, moist oral mucosa Neck: Supple, trachea midline Respiratory: CTA bilaterally, normal effort, no wheezing/crackles, chest wall tenderness on right CV: RRR, no murmur, cap refill <2 GI: Soft, nondistended, nontender, no masses MSK: No obvious deformities Skin: Warm, dry, intact Neuro: A&O x3, speech NL, sensory and motor grossly intact, no focal deficits Psych: Normal affect, normal mood, not suicidal or homicidal Current Patient Data: Vital Signs: Vital Signs Date Time Temp Pulse Resp B/P (MAP) Pulse Ox O2 Delivery O2 Flow Rate FiO2 02/25/20 18:22 99.4 88 20 172/75 (107) 95 Room Air 99.4 EKG: EKG: [] Radiology/Procedures: Radiology/Procedures: [] Course & Med Decision Making: Course & Med Decision Making Pertinent Labs and Imaging studies reviewed. (See chart for details) Patient is an 79-year-old female who presents the emergency room after being found on the ground. She denies losing consciousness or hitting her head. At this time she does not need a CT of her head or C-spine. She did lay on the floor for quite some time so labs will be done including a CBC, BMP, CK. CT of the chest and abdomen will be ordered to evaluate for rib fractures and intra- abdominal injury given her tenderness. CT shows rib fractures on the right side. Patient has required 3 doses of pain medicine here in the emergency room. She does have a pulse ox of 90% on room air. It is likely that she is going to need some assistance with pain control and incentive spirometry to prevent pneumonia. Patient will be admitted to the hospitalist for further care. Work up was reviewed and was remarkable for rib fractures. At this time, patient would benefit from further work up and management. Patient is not stable for discharge at this time. Results, vitals, interventions, and plan was discussed with the patient. Patient was given opportunity to ask any questions and are in agreement with plan for admission. Patient was discussed with admitting physician and bridge admission orders were placed. Further care will be managed by inpatient team. Javonon Disclaimer: Dragaubrie Disclaimer: This electronic medical record was generated, in whole or in part, using a voice recognition dictation system. Departure Departure Impression: Primary Impression: Fall Additional Impression: Fracture, rib Disposition: 09 ADMITTED INPATIENT Condition: STABLE Referrals: AN KINNEY (PCP) Justicifation of Admission Dx: Justifications for Admission: Justification of Admission Dx: Yes ABEL NAVAS MD Feb 25, 2020 19:17
[2020-02-25] MEDS ORDERED: MORPHINE SULFATE 10 MG/ML VIAL. IV ONE ×2 (19:30→21:00)
[2020-02-25] MEDS ORDERED: IV NORMAL SALINE 1000ML BAG 1,000 ML IV ONE (19:30)
[2020-02-25 19:58] LABS: BILIRUBIN,URINE NEGATIVE (NEG); CLARITY,URINE CLEAR; COLOR,URINE YELLOW; NITRITE,URINE NEGATIVE (NEG); PROTEIN,URINE 100 mg/dL (NEG-TRACE); UROBILINOGEN,URINE 0.2 mg/dL (0.2 mg/dL)
[2020-02-25 20:00] LABS: BASO % 0 % (0-3); EOS % 0 % (0-3); HEMATOCRIT 39.4 % (36.0-47.0); HEMOGLOBIN 13.3 g/dL (12.0-15.5); LYMPH # 1.3 x10^3/uL (1.0-4.8); LYMPH % 11 % (24-48); MEAN CORPUSCULAR HEMOGLOBIN 33 pg (25-35); MEAN CORPUSCULAR HGB CONC 34 g/dL (31-37); MEAN CORPUSCULAR VOLUME 99 fL (79-100); MONO # 1.1 x10^3/uL (0.0-1.1); MONO % 9 % (0-9); NEUT # 9.6 x10^3/uL (1.8-7.7); NEUT % 79 % (31-73); PLATELET COUNT 212 x10^3/uL (140-400); RED BLOOD COUNT 3.99 x10^6/uL (3.50-5.40); RED CELL DISTRIBUTION WIDTH 15.7 % (11.5-14.5)
[2020-02-25 20:04] LABS: SQUAMOUS EPITHELIAL CELL,UR FEW /LPF
[2020-02-25 20:06] LABS: BACTERIA,URINE 0 /HPF (0-FEW); HYALINE CASTS, URINE FEW /HPF; RBC,URINE 0 /HPF (0-2); WBC,URINE 0 /HPF (0-4)
--- NOTE | 2020-02-25 20:32 | RAD ---
CT CHEST ABDOMEN WO CONTRAST INDICATION: Fall, R side pain COMPARISON: CT chest 01/17/2020 TECHNIQUE: Multiple contiguous axial images were obtained throughout the chest and abdomen without the use of IV contrast. Axial images were reformatted into coronal and sagittal planes. One or more of the following dose reduction techniques were utilized: Automated exposure control (AEC), Adjustment of mA and/or kV according to patient size, Use of iterative reconstruction technique such as ASiR, CT scan done according to ALARA and image gently/image wisely. FINDINGS: The thyroid is symmetric. There is no axillary, mediastinal, or hilar adenopathy, although evaluation of the cheryl is limited without IV contrast. Calcified mediastinal and hilar lymph nodes consistent with remote granulomatous disease. The thoracic aorta diameter is normal. Cardiomegaly. Coronary artery atherosclerotic disease. Aortic valve prosthesis. There is no pericardial effusion. The central airways are patent. Stable left upper lobe linear opacity. No new pulmonary mass or consolidation. No pleural abnormality. Moderate-sized hiatal hernia. Evaluation of solid abdominal viscera is limited without the use of IV contrast. However, the liver, spleen, pancreas, and adrenal glands are unremarkable. Cholecystectomy. The kidneys are unremarkable. There is no significant mesenteric or retroperitoneal adenopathy identified, though evaluation is limited without intravenous contrast. There is no evidence of free intraperitoneal fluid or pneumoperitoneum. Visualized portions of the bowel are grossly unremarkable. The bladder and distal ureters are unremarkable. There is no significant pelvic ascites. No significant iliac or inguinal adenopathy is identified. Acute right posterolateral 9th and 10th rib fractures, mildly displaced at 10. Trace anterolisthesis at L4-5 due to facet arthropathy. Left convex lumbar curvature. IMPRESSION: Acute right posterolateral ninth and 10th rib fractures, mildly displaced at 10. No pneumothorax. Electronically signed by: Eyad Jauregui MD (02/25/2020 8:29 PM) [facility]
[2020-02-25 21:13] LABS: CALCIUM 9.4 mg/dL (8.5-10.1); CREATININE 0.7 mg/dL (0.6-1.0); GFR 80.5; POTASSIUM 4.2 mmol/L (3.5-5.1)
[2020-02-25 21:20] LABS: TOTAL BILIRUBIN 0.6 mg/dL (0.2-1.0); TOTAL PROTEIN 7.4 g/dL (6.4-8.2)
[2020-02-25 21:32] LABS: ALBUMIN 3.6 g/dL (3.4-5.0); ALBUMIN/GLOBULIN RATIO 0.9 (1.0-1.7)
[2020-02-25] MEDS ORDERED: MORPHINE SULFATE 2 MG/ML VIAL. IV PRN (22:45)
[2020-02-25] MEDS ORDERED: MECLIZINE HCL 12.5 MG TABLET. PO PRN (23:15)
[2020-02-26] VITALS (7 sets, daily range): BP systolic 105–154; BP diastolic 51–109
[2020-02-26] MEDS: HYDROcodone/APAP 5/325MG 1 TAB TABLET PO PRN ×3 (01:00→14:13)
[2020-02-26] MEDS: LEVOTHYROXINE 100 MCG TABLET PO SCH (06:12)
[2020-02-26] MEDS: ALBUTEROL SULFATE 2.5 MG/3 ML NEBU. NEB SCH ×4 (07:59→20:19)
[2020-02-26] MEDS: BUDESONIDE 0.5 MG/2 ML NEBU. NEB SCH ×2 (07:59→20:20)
[2020-02-26] MEDS ORDERED: ANTI-COAG MONITOR BY PHARMACY. MC PRN (08:15)
[2020-02-26] MEDS: sulfaSALAzine 500 MG TABLET PO SCH ×2 (08:16→20:41)
[2020-02-26] MEDS: FOLIC ACID 1 MG TABLET. PO SCH (08:16)
[2020-02-26] MEDS: POTASSIUM CHLORIDE 10 MEQ TABLET.ER. PO SCH (08:17)
[2020-02-26] MEDS: APIXABAN 5 MG TABLET. PO SCH ×2 (08:17→20:40)
[2020-02-26] MEDS: FUROSEMIDE 20 MG TABLET PO SCH (08:17)
[2020-02-26] MEDS: SERTRALINE 50 MG TABLET. PO SCH (08:17)
[2020-02-26] MEDS: LIDOCAINE (700MG/PATCH) PATCH. TD SCH (08:18)
[2020-02-26] MEDS: HYDROXYCHLOROQUINE 200 MG TABLET PO SCH (08:18)
[2020-02-26] MEDS ORDERED: METO-239 PO (08:37)
[2020-02-26] MEDS ORDERED: DIGO125T3 PO (08:37)
[2020-02-26] MEDS ORDERED: NON FORMULARY ITEM (Budesonide/Formoterol Fumarate (Symbicort 160-4.5 Mcg Inhaler) 2 PUFF) IH SCH (09:00)
[2020-02-26 10:56] LABS: DIG 0.4 ng/mL (0.9-2.0)
[2020-02-26] MEDS: DIGOXIN 125 MCG TABLET. PO SCH (11:27)
[2020-02-26] MEDS ORDERED: DIGOXIN IV 500 MCG/2 ML AMPUL. IV ONE (11:30)
--- NOTE | 2020-02-26 12:13 | PDOC2 ---
CONSULT Date of Consult Date of Consult DATE: 02/26/20 TIME: 12:13 Reason for Consult Reason for Consult: Atrial fibrillation with RVR Referring Physician Referring Physician: Dr. Bautista Identification/Chief Complaint Chief Complaint s/p Mechanical Fall Source Source: Chart review, Patient History of Present Illness Reason for Visit: 79-year-old female with history of permanent atrial fibrillation and bioprosthetic aortic valve replacement apparently tripped over her laundry basket and fell down. She was complaining of right-sided chest pain and was diagnosed with rib fractures. She denied any loss of consciousness. She also denied any orthopnea/PND or palpitations. Past Medical History Cardiovascular: AFIB, HTN, Hyperlipidemia, Valve insufficiency Pulmonary: No pertinent hx CENTRAL NERVOUS SYSTEM: Other GI: Diverticulosis, GERD Heme/Onc: Anemia NOS Hepatobiliary: No pertinent hx Psych: No pertinent hx Musculoskeletal: Osteoarthritis Rheumatologic: Rheumatoid arthritis Renal/: Chronic renal insuff Endocrine: Hypothyroidism Past Surgical History Past Surgical History: Cholecystectomy, Total hip replacement, Hysterectomy, Colon Resection, Other Family History Family History: Hypertension Social History ALCOHOL: none Drugs: None Lives: [facility] Current Problem List Problem List Problems Medical Problems: (1) Fall Status: Acute Current Medications Current Medications Current Medications Sodium Chloride 1,000 ml @ 1,000 mls/hr 1X ONCE IV Last administered on 02/25/20at 19:50; Start 02/25/20 at 19:30; Stop 02/25/20 at 20:29; Status DC Morphine Sulfate (Morphine Sulfate) 5 mg 1X ONCE IV Last administered on 02/25/20at 19:50; Start 02/25/20 at 19:30; Stop 02/25/20 at 19:33; Status DC Morphine Sulfate (Morphine Sulfate) 5 mg 1X ONCE IV Last administered on 02/25/20at 21:23; Start 02/25/20 at 21:00; Stop 02/25/20 at 21:01; Status DC Morphine Sulfate (Morphine Sulfate) 2 mg PRN Q4HRS PRN IV PAIN Last administered on 02/26/20at 08:27; Start 02/25/20 at 22:45; Stop 02/26/20 at 12:09; Status DC Lidocaine (Lidoderm) 1 patch DAILY TD Last administered on 02/26/20at 08:18; Start 02/26/20 at 09:00 Miscellaneous (Lidoderm Patch Removal) 1 ea QHS ; Start 02/26/20 at 21:00 Apixaban (Eliquis) 5 mg BID PO Last administered on 02/26/20 08:17; Start 02/26/20 at 09:00 Diltiazem HCl (Cardizem 24hr Cd) 120 mg DAILY PO Last administered on 02/26/20at 08:17; Start 02/26/20 at 09:00 Folic Acid (Folic Acid) 1 mg DAILY PO Last administered on 02/26/20at 08:16; Start 02/26/20 at 09:00 Furosemide (Lasix) 20 mg DAILY PO Last administered on 02/26/20 08:17; Start 02/26/20 at 09:00 Acetaminophen/ Hydrocodone Bitart (Lortab 5/325) 1 tab PRN Q6HRS PRN PO PAIN Last administered on 02/26/20 06:16; Start 02/25/20 at 23:15 Hydroxychloroquine Sulfate (Plaquenil) 200 mg DAILY PO Last administered on 02/26/20at 08:18; Start 02/26/20 at 09:00 Levothyroxine Sodium (Synthroid) 100 mcg DAILY06 PO Last administered on 02/26/20 06:12; Start 02/26/20 at 06:00 Sertraline HCl (Zoloft) 50 mg DAILY PO Last administered on 02/26/20 08:17; Start 02/26/20 at 09:00 Sulfasalazine (Azulfidine) 1,500 mg BID PO Last administered on 02/26/20at 08:16; Start 02/26/20 at 09:00 Non-Formulary Medication (Budesonide/ Formoterol Fumarate (Symbicort 160-4.5 Mcg Inhaler)) 2 puff BID IH ; Start 02/26/20 at 09:00; Status UNV Meclizine HCl (Antivert) 25 mg TID PRN PRN PO DIZZINESS; Start 02/25/20 at 23:15 Potassium Chloride (Klor-Con) 10 meq DAILYWBKFT PO Last administered on 02/26/20at 08:17; Start 02/26/20 at 08:00 Budesonide (Pulmicort) 0.5 mg RTBID NEB Last administered on 02/26/20at 07:59; Start 02/26/20 at 08:00 Albuterol Sulfate (Ventolin Neb Soln) 2.5 mg RTQID NEB Last administered on 02/26/20at 07:59; Start 02/26/20 at 08:00 Info (Anti-Coagulation Monitoring By Pharmacy) 1 each PRN DAILY PRN MC SEE COMMENTS; Start 02/26/20 at 08:15 Digoxin (Lanoxin) 125 mcg DAILY PO ; Start 02/27/20 at 09:00; Status Cancel Digoxin (Lanoxin) 250 mcg 1X ONCE IV Last administered on 02/26/20at 11:30; Start 02/26/20 at 11:30; Stop 02/26/20 at 11:31; Status DC Digoxin (Lanoxin) 125 mcg DAILY PO Last administered on 02/26/20at 11:27; Start 02/26/20 at 12:00 Morphine Sulfate (Morphine Sulfate) 2 mg PRN Q2HR PRN IV MODERATE TO SEVERE PAIN; Start 02/26/20 at 12:15 Active Scripts Active [place] 5-325 Tablet (Acetaminophen/Hydrocodone Bitart) 1 Each Tablet 1-2 Each PO PRN Q6HRS PRN as needed for pain Reported Metoprolol Succinate ( Xl ) (Metoprolol Succinate) 25 Mg Tab.er.24h 75 Mg PO BID Digoxin 125 Mcg Tablet 125 Mcg PO DAILY Meclizine Hcl 25 Mg Tablet 25 Mg PO TID PRN Symbicort 160-4.5 Mcg Inhaler (Budesonide/Formoterol Fumarate) 10.2 Gm Hfa.aer. ad 2 Puff IH BID Potassium Chloride 10 Meq Tablet.er 10 Meq PO DAILY Diltiazem 24HR Cd (Diltiazem Hcl) 120 Mg Cap.er.24h 120 Mg PO BID Eliquis (Apixaban) 5 Mg Tablet 5 Mg PO BID Methotrexate (Methotrexate Sodium) 2.5 Mg Tablet 5 Tab PO WEEKLY ON THURSDAY Folic Acid 1 Mg Tablet 1 Tab PO DAILY Zoloft (Sertraline Hcl) 50 Mg Tablet 1 Tab PO DAILY Furosemide 20 Mg Tablet 20 Mg PO DAILY Sulfasalazine 500 Mg Tablet 1,500 Mg PO BID Synthroid (Levothyroxine Sodium) 100 Mcg Tablet 100 Mcg PO DAILYAC Plaquenil (Hydroxychloroquine Sulfate) 200 Mg Tablet 200 Mg PO DAILY Allergies Allergies: Coded Allergies: phenobarbital (Verified Adverse Reaction, Intermediate, HALLUCINATIONS, 12/09/17) 1959 prescribed for "nerves" ROS PSYCHOLOGICAL ROS: No: Hallucinations Eyes: No Loss of vision HEENT: No: Epistaxis Cardiovascular: yes Chest Pain Gastrointestinal: No Nausea, No Vomiting, No Diarrhea Genitourinary: No Hematuria Neurological: No Seizures Skin: No Rash Physical Exam General: Alert, Oriented X3 HEENT: Atraumatic Lungs: Clear to auscultation Heart: Other (Tachycardic and irregular) Abdomen: Soft Extremities: No edema Psych/Mental Status: Mood NL Vitals VITALS Vital Signs Date Time Temp Pulse Resp B/P (MAP) Pulse Ox O2 Delivery O2 Flow Rate FiO2 02/26/20 11:30 112 115/56 02/26/20 10:44 98.1 20 91 Room Air 98.1 Labs Labs Laboratory Tests Test 02/25/20 19:15 02/25/20 19:45 02/25/20 20:50 02/26/20 10:30 White Blood Count 12.0 x10^3/uL (4.0-11.0) Red Blood Count 3.99 x10^6/uL (3.50-5.40) Hemoglobin 13.3 g/dL (12.0-15.5) Hematocrit 39.4 % (36.0-47.0) Mean Corpuscular Volume 99 fL (79-100) Mean Corpuscular Hemoglobin 33 pg (25-35) Mean Corpuscular Hemoglobin Concent 34 g/dL (31-37) Red Cell Distribution Width 15.7 % (11.5-14.5) Platelet Count 212 x10^3/uL (140-400) Neutrophils (%) (Auto) 79 % (31-73) Lymphocytes (%) (Auto) 11 % (24-48) Monocytes (%) (Auto) 9 % (0-9) Eosinophils (%) (Auto) 0 % (0-3) Basophils (%) (Auto) 0 % (0-3) Neutrophils # (Auto) 9.6 x10^3/uL (1.8-7.7) Lymphocytes # (Auto) 1.3 x10^3/uL (1.0-4.8) Monocytes # (Auto) 1.1 x10^3/uL (0.0-1.1) Eosinophils # (Auto) 0.0 x10^3/uL (0.0-0.7) Basophils # (Auto) 0.0 x10^3/uL (0.0-0.2) Urine Collection Type U cath Urine Color Yellow Urine Clarity Clear Urine pH 6.0 (<5.0-8.0) Urine Specific [place] 1.010 (1.000-1.030) Urine Protein 100 mg/dL (NEG-TRACE) Urine Glucose (UA) Negative mg/dL (NEG) Urine Ketones (Stick) Negative mg/dL (NEG) Urine Blood Trace (NEG) Urine Nitrite Negative (NEG) Urine Bilirubin Negative (NEG) Urine Urobilinogen Dipstick 0.2 mg/dL (0.2 mg/dL) Urine Leukocyte Esterase Negative (NEG) Urine RBC 0 /HPF (0-2) Urine WBC 0 /HPF (0-4) Urine Squamous Epithelial Cells Few /LPF Urine Bacteria 0 /HPF (0-FEW) Urine Hyaline Casts Few /HPF Urine Mucus Slight /LPF Sodium Level 141 mmol/L (136-145) Potassium Level 4.2 mmol/L (3.5-5.1) Chloride Level 104 mmol/L (98-107) Carbon Dioxide Level 28 mmol/L (21-32) Anion Gap 9 (6-14) Blood Urea Nitrogen 15 mg/dL (7-20) Creatinine 0.7 mg/dL (0.6-1.0) Estimated GFR (Cockcroft-Gault) 80.5 BUN/Creatinine Ratio 21 (6-20) Glucose Level 100 mg/dL (70-99) Calcium Level 9.4 mg/dL (8.5-10.1) Total Bilirubin 0.6 mg/dL (0.2-1.0) Aspartate Amino Transf (AST/SGOT) 39 U/L (15-37) Alanine Aminotransferase (ALT/SGPT) 20 U/L (14-59) Alkaline Phosphatase 64 U/L (46-116) Creatine Kinase 298 U/L (26-192) Troponin I Quantitative < 0.017 ng/mL (0.000-0.055) Total Protein 7.4 g/dL (6.4-8.2) Albumin 3.6 g/dL (3.4-5.0) Albumin/Globulin Ratio 0.9 (1.0-1.7) Digoxin Level 0.4 ng/mL (0.9-2.0) Digoxin Last Dose Date 02/25/20 Digoxin Last Dose Time 0800 Laboratory Tests Test 02/25/20 19:15 02/25/20 19:45 02/25/20 20:50 02/26/20 10:30 White Blood Count 12.0 x10^3/uL (4.0-11.0) Red Blood Count 3.99 x10^6/uL (3.50-5.40) Hemoglobin 13.3 g/dL (12.0-15.5) Hematocrit 39.4 % (36.0-47.0) Mean Corpuscular Volume 99 fL (79-100) Mean Corpuscular Hemoglobin 33 pg (25-35) Mean Corpuscular Hemoglobin Concent 34 g/dL (31-37) Red Cell Distribution Width 15.7 % (11.5-14.5) Platelet Count 212 x10^3/uL (140-400) Neutrophils (%) (Auto) 79 % (31-73) Lymphocytes (%) (Auto) 11 % (24-48) Monocytes (%) (Auto) 9 % (0-9) Eosinophils (%) (Auto) 0 % (0-3) Basophils (%) (Auto) 0 % (0-3) Neutrophils # (Auto) 9.6 x10^3/uL (1.8-7.7) Lymphocytes # (Auto) 1.3 x10^3/uL (1.0-4.8) Monocytes # (Auto) 1.1 x10^3/uL (0.0-1.1) Eosinophils # (Auto) 0.0 x10^3/uL (0.0-0.7) Basophils # (Auto) 0.0 x10^3/uL (0.0-0.2) Urine Collection Type U cath Urine Color Yellow Urine Clarity Clear Urine pH 6.0 (<5.0-8.0) Urine Specific [place] 1.010 (1.000-1.030) Urine Protein 100 mg/dL (NEG-TRACE) Urine Glucose (UA) Negative mg/dL (NEG) Urine Ketones (Stick) Negative mg/dL (NEG) Urine Blood Trace (NEG) Urine Nitrite Negative (NEG) Urine Bilirubin Negative (NEG) Urine Urobilinogen Dipstick 0.2 mg/dL (0.2 mg/dL) Urine Leukocyte Esterase Negative (NEG) Urine RBC 0 /HPF (0-2) Urine WBC 0 /HPF (0-4) Urine Squamous Epithelial Cells Few /LPF Urine Bacteria 0 /HPF (0-FEW) Urine Hyaline Casts Few /HPF Urine Mucus Slight /LPF Sodium Level 141 mmol/L (136-145) Potassium Level 4.2 mmol/L (3.5-5.1) Chloride Level 104 mmol/L (98-107) Carbon Dioxide Level 28 mmol/L (21-32) Anion Gap 9 (6-14) Blood Urea Nitrogen 15 mg/dL (7-20) Creatinine 0.7 mg/dL (0.6-1.0) Estimated GFR (Cockcroft-Gault) 80.5 BUN/Creatinine Ratio 21 (6-20) Glucose Level 100 mg/dL (70-99) Calcium Level 9.4 mg/dL (8.5-10.1) Total Bilirubin 0.6 mg/dL (0.2-1.0) Aspartate Amino Transf (AST/SGOT) 39 U/L (15-37) Alanine Aminotransferase (ALT/SGPT) 20 U/L (14-59) Alkaline Phosphatase 64 U/L (46-116) Creatine Kinase 298 U/L (26-192) Troponin I Quantitative < 0.017 ng/mL (0.000-0.055) Total Protein 7.4 g/dL (6.4-8.2) Albumin 3.6 g/dL (3.4-5.0) Albumin/Globulin Ratio 0.9 (1.0-1.7) Digoxin Level 0.4 ng/mL (0.9-2.0) Digoxin Last Dose Date 02/25/20 Digoxin Last Dose Time 0800 Assessment/Plan Assessment/Plan 1. s/p Mechanical fall resulting in rib fractures. Continue supportive care per IM. 2. Permanent atrial fibrillation presenting with RVR most probably secondary to pain. Resume Cardizem and digoxin. Hold metoprolol for now since blood pressure marginal and resume this once it stabilizes. Recent event monitor recording showed 100% atrial fibrillation burden. Patient apparently had 3 falls in the last 1 year and hence probably a poor candidate for long-term anticoagulation. Consider stopping Eliquis, treating with aspirin for stroke prophylaxis and referred to EP for possible left atrial appendage occluder procedure - efer to my partner Dr. Wright who usually follows her. 3. Bioprosthetic aortic valve replacement, clinically stable. 2D echo in April 2018 showed normal LV systolic function with EF 60 to 65% and well-seated and normally functioning bioprosthetic aortic valve. Cardiac catheterization prior to valve replacement did not show any significant coronary disease. 4. Hypothyroidism: On levothyroxine Thank you for your consultation. TASNEEM BAILEY MD Feb 26, 2020 12:13
[2020-02-26] MEDS: MORPHINE SULFATE 2 MG/ML VIAL. IV PRN ×4 (12:43→20:40)
--- NOTE | 2020-02-26 15:54 | PDOC ---
GENERAL General: History and physical 279428 VITAL SIGNS Vital Signs/I&O: Vital Signs Date Time Temp Pulse Resp B/P (MAP) Pulse Ox O2 Delivery O2 Flow Rate FiO2 02/26/20 15:32 90 02/26/20 14:44 98.8 109 20 110/65 (80) Room Air 98.8 I & O 02/25/20 02/25/20 02/26/20 15:00 23:00 07:00 Intake Total 1000 ml 1050 ml Output Total 400 ml Balance 1000 ml 650 ml ALLERGIES Allergies: Allergies Coded Allergies Type Severity Reaction Last Updated Verified phenobarbital Adverse Reaction Intermediate HALLUCINATIONS 12/09/17 Yes MEDS Medications: Current Medications Medications (Trade) Dose Ordered Sig/Vikram Route PRN Reason Start Time Stop Time Status Last Admin Dose Admin Sodium Chloride 1,000 ml @ 1,000 mls/hr 1X ONCE IV 02/25/20 19:30 02/25/20 20:29 DC 02/25/20 19:50 Morphine Sulfate (Morphine Sulfate) 5 mg 1X ONCE IV 02/25/20 19:30 02/25/20 19:33 DC 02/25/20 19:50 Morphine Sulfate (Morphine Sulfate) 5 mg 1X ONCE IV 02/25/20 21:00 02/25/20 21:01 DC 02/25/20 21:23 Morphine Sulfate (Morphine Sulfate) 2 mg PRN Q4HRS PRN IV PAIN 02/25/20 22:45 02/26/20 12:09 DC 02/26/20 08:27 Lidocaine (Lidoderm) 1 patch DAILY TD 02/26/20 09:00 02/26/20 08:18 Apixaban (Eliquis) 5 mg BID PO 02/26/20 09:00 02/26/20 08:17 Diltiazem HCl (Cardizem 24hr Cd) 120 mg DAILY PO 02/26/20 09:00 02/26/20 08:17 Folic Acid (Folic Acid) 1 mg DAILY PO 02/26/20 09:00 02/26/20 08:16 Furosemide (Lasix) 20 mg DAILY PO 02/26/20 09:00 02/26/20 08:17 Acetaminophen/ Hydrocodone Bitart (Lortab 5/325) 1 tab PRN Q6HRS PRN PO PAIN 02/25/20 23:15 02/26/20 14:13 Hydroxychloroquine Sulfate (Plaquenil) 200 mg DAILY PO 02/26/20 09:00 02/26/20 08:18 Levothyroxine Sodium (Synthroid) 100 mcg DAILY06 PO 02/26/20 06:00 02/26/20 06:12 Sertraline HCl (Zoloft) 50 mg DAILY PO 02/26/20 09:00 02/26/20 08:17 Sulfasalazine (Azulfidine) 1,500 mg BID PO 02/26/20 09:00 02/26/20 08:16 Potassium Chloride (Klor-Con) 10 meq DAILYWBKFT PO 02/26/20 08:00 02/26/20 08:17 Budesonide (Pulmicort) 0.5 mg RTBID NEB 02/26/20 08:00 02/26/20 07:59 Albuterol Sulfate (Ventolin Neb Soln) 2.5 mg RTQID NEB 02/26/20 08:00 02/26/20 12:54 Digoxin (Lanoxin) 250 mcg 1X ONCE IV 02/26/20 11:30 02/26/20 11:31 DC 02/26/20 11:30 Digoxin (Lanoxin) 125 mcg DAILY PO 02/26/20 12:00 02/26/20 11:27 Morphine Sulfate (Morphine Sulfate) 2 mg PRN Q2HR PRN IV MODERATE TO SEVERE PAIN 02/26/20 12:15 02/26/20 14:49 LAB Lab: Laboratory Tests Test 02/25/20 19:15 02/25/20 19:45 02/25/20 20:50 02/26/20 10:30 White Blood Count 12.0 x10^3/uL (4.0-11.0) H Red Blood Count 3.99 x10^6/uL (3.50-5.40) Hemoglobin 13.3 g/dL (12.0-15.5) Hematocrit 39.4 % (36.0-47.0) Mean Corpuscular Volume 99 fL (79-100) Mean Corpuscular Hemoglobin 33 pg (25-35) Mean Corpuscular Hemoglobin Concent 34 g/dL (31-37) Red Cell Distribution Width 15.7 % (11.5-14.5) H Platelet Count 212 x10^3/uL (140-400) Neutrophils (%) (Auto) 79 % (31-73) H Lymphocytes (%) (Auto) 11 % (24-48) L Monocytes (%) (Auto) 9 % (0-9) Eosinophils (%) (Auto) 0 % (0-3) Basophils (%) (Auto) 0 % (0-3) Neutrophils # (Auto) 9.6 x10^3/uL (1.8-7.7) H Lymphocytes # (Auto) 1.3 x10^3/uL (1.0-4.8) Monocytes # (Auto) 1.1 x10^3/uL (0.0-1.1) Eosinophils # (Auto) 0.0 x10^3/uL (0.0-0.7) Basophils # (Auto) 0.0 x10^3/uL (0.0-0.2) Urine Collection Type U cath Urine Color Yellow Urine Clarity Clear Urine pH 6.0 (<5.0-8.0) Urine Specific [place] 1.010 (1.000-1.030) Urine Protein 100 mg/dL (NEG-TRACE) Urine Glucose (UA) Negative mg/dL (NEG) Urine Ketones (Stick) Negative mg/dL (NEG) Urine Blood Trace (NEG) Urine Nitrite Negative (NEG) Urine Bilirubin Negative (NEG) Urine Urobilinogen Dipstick 0.2 mg/dL (0.2 mg/dL) Urine Leukocyte Esterase Negative (NEG) Urine RBC 0 /HPF (0-2) Urine WBC 0 /HPF (0-4) Urine Squamous Epithelial Cells Few /LPF Urine Bacteria 0 /HPF (0-FEW) Urine Hyaline Casts Few /HPF Urine Mucus Slight /LPF Sodium Level 141 mmol/L (136-145) Potassium Level 4.2 mmol/L (3.5-5.1) Chloride Level 104 mmol/L (98-107) Carbon Dioxide Level 28 mmol/L (21-32) Anion Gap 9 (6-14) Blood Urea Nitrogen 15 mg/dL (7-20) Creatinine 0.7 mg/dL (0.6-1.0) Estimated GFR (Cockcroft-Gault) 80.5 BUN/Creatinine Ratio 21 (6-20) H Glucose Level 100 mg/dL (70-99) H Calcium Level 9.4 mg/dL (8.5-10.1) Total Bilirubin 0.6 mg/dL (0.2-1.0) Aspartate Amino Transferase (AST) 39 U/L (15-37) H Alanine Aminotransferase (ALT) 20 U/L (14-59) Alkaline Phosphatase 64 U/L (46-116) Creatine Kinase 298 U/L (26-192) H Troponin I Quantitative < 0.017 ng/mL (0.000-0.055) Total Protein 7.4 g/dL (6.4-8.2) Albumin 3.6 g/dL (3.4-5.0) Albumin/Globulin Ratio 0.9 (1.0-1.7) L Digoxin Level 0.4 ng/mL (0.9-2.0) L Digoxin Last Dose Date 02/25/20 Digoxin Last Dose Time 0800 Laboratory Tests 02/25/20 19:15 Laboratory Tests 02/25/20 20:50 Justicifation of Admission Dx: Justifications for Admission: Justification of Admission Dx: Yes VERENA RAMSEY MD Feb 26, 2020 15:54
[2020-02-26] MEDS ORDERED: KETOROLAC 30 MG/ML VIAL. IVP PRN (16:00)
--- NOTE | 2020-02-26 17:08 | HP ---
ADMIT DATE: HISTORY OF PRESENT ILLNESS: This patient is a heladio 79-year-old woman who is a continuity outpatient of Dr. Uriel Puckett, who uses the [facility] hospitalist here at [facility]. I am rounding for them this weekend. She also routinely sees Dr. Hurt of Cardiology and his group has already evaluated the patient since her admission. The patient had a trip and fall over a laundry basket in the middle of her path in the middle of the night 2 nights ago, unfortunately, laid on the floor of her apartment for at least 15 hours crying out for someone to help her. She lives at [facility] in [place], which are elderly living, but not independent living. She does not have a fall alert monitor. Finally a neighbor heard her and called 911. The patient has been found to have sustained right posterolateral 9th and 10th rib fractures, but was just too weak to get up. Unfortunately, she has had increasing weakness over the last couple of years with multiple falls, the last of which she believes was about a year ago requiring hospitalization. Sadly, the patient's 58-year-old son of a sudden cardiac arrest earlier this week. She does not believe that was linked with this event, but certainly has been grieving quite heavily. He had a long history of tobacco smoking and had had multiple MIs in his young life. The patient firmly denies any preceding symptoms including no lightheadedness, headache, chest pain, palpitations, dizziness or any other new specific constitutional symptoms. She has been taking good care of herself at home and is pleased to tell me that she had a very early stage lung cancer identified about 2 years ago that was treated for cure by Radiation Oncology. She continues to follow closely with Radiation Oncology here at [facility]. Currently, her biggest complaint is that she has very severe right-sided chest wall pain. All other systems reviewed and negative. PAST MEDICAL HISTORY: 1. Permanent atrial fibrillation for which she has been on Eliquis for some time and tolerated that well. 2. Impaired gait mobility secondary to dysequilibrium of age, arthritis and perhaps an adverse medication reaction. 3. Inflammatory arthritis. 4. Bioprosthetic aortic valve replacement, that has done well. 5. The patient had an early stage lung cancer that was treated for cure by Radiation Oncology with clear scans since the end of 2019. MEDICATIONS: Please see the medication reconciliation form. SOCIAL HISTORY: The patient is single. She lives in an elderly apartment. Her medical durable power of assistant city attorney she tells me is her friend, Mary Jane Jose, she does not have her number handy. She does not have a living will, at this point, but tells me that she would be a full code. She quit smoking some years ago, had at least a [id number] history. The patient does have a supportive family, has several grandchildren of her son, has left coordinating her support now. She does not take any alcohol or illicit drugs. FAMILY HISTORY: Reviewed and full and noncontributory to the present illness. PHYSICAL EXAMINATION: VITAL SIGNS: Reviewed since admission and are notable for that the patient has been afebrile, blood pressure has been in the low 100s/60s, heart rate is in the low 100s and irregularly irregular, which is her baseline. She is breathing comfortably and saturating 90-92% on room air. GENERAL: She is a pleasant 79-year-old woman who appears stated age, resting in bed comfortably, except when she tries to move. She is having right-sided rib pain, otherwise in no acute distress. HEENT: Unremarkable. NECK: Soft and supple. No adenopathy or thyromegaly noted. CHEST: Bilateral equal air entry, though diminished throughout anteriorly. She did not want to be moved this afternoon for more inspection of her posterior chest wall. HEART: S1, S2, normal. Irregularly irregular, which is her baseline. No murmurs or gallops are noted. ABDOMEN: Soft, nontender, nondistended. No masses or organomegaly noted. EXTREMITIES: Unremarkable for acute abnormality. LABORATORY DATA AND OTHER STUDIES: Admission chemistry panel is notable for a creatine kinase of 298. Liver function tests are normal. Creatinine is 0.7. Electrolytes are unremarkable. Troponin is less than 0.017. CBC notable for hemoglobin of 13.3, platelet count of 212. White count mildly elevated at 12. Urinalysis is unremarkable. CT chest and abdomen notable for acute right posterolateral 9th and 10th rib fractures with mild displacement of 10. No pneumothorax is noted. No other abnormality is noted. IMPRESSION: An 79-year-old woman with a trip and fall at home sustaining right posterolateral 9th and 10th rib fracture. She did lie on the ground for hours before anybody was able to find her, unfortunately she was unable to lift herself from the ground. She will certainly need aggressive rehabilitation efforts to optimize her functional status and hopefully prevent future falls at home. PLAN: We will consult physical therapy, occupational therapy, and social services specialist. Their assistance is appreciated. We appreciate Cardiology input and defer to her continuity para operator regarding the appropriateness of continued anticoagulation in this frail patient. That certainly sounds like the risk of the anticoagulation outweighs the benefit at this point. Nonetheless, she has done well on the Eliquis despite these falls. Inpatient stay is most appropriate as we anticipate a length of stay of at least 2-3 midnights while we work this through. VERENA RAMSEY MD DR: ANITA/hazel JOB#: [id number] / [id number] [facility] TORIN HURT MD, STEVEN MTDD
[2020-02-26] MEDS: PATCH REMOVAL. MC SCH (21:00)
[2020-02-27 03:11] VITALS: BP 168/72
[2020-02-27] MEDS: LEVOTHYROXINE 100 MCG TABLET PO SCH (05:55)
[2020-02-27] MEDS: HYDROcodone/APAP 5/325MG 1 TAB TABLET PO PRN ×3 (06:02→21:54)
[2020-02-27] MEDS: MORPHINE SULFATE 2 MG/ML VIAL. IV PRN ×4 (06:02→16:08)
[2020-02-27 07:00] VITALS: BP 141/51
[2020-02-27] MEDS: BUDESONIDE 0.5 MG/2 ML NEBU. NEB SCH ×2 (07:19→19:53)
[2020-02-27] MEDS: ALBUTEROL SULFATE 2.5 MG/3 ML NEBU. NEB SCH ×4 (07:19→19:53)
--- NOTE | 2020-02-27 07:55 | EKG ---
[facility] [address] [place] [address] Test Date: 2020-02-25 Test Time: 18:39:13 Pat Name: DAVE BRUNO Department: Room: Gender: F Exam Proctor: : 1940 Requested By: ABEL NAVAS Order Number: [id number] Reading MD: Measurements Intervals Staples Rate: 81 P: PA: QRS: -18 QRSD: 98 T: 23 QT: 390 QTc: 453 Interpretive Statements IRREGULAR RHYTHM, NO P-WAVE FOUND LEFTWARD AXIS NO SPECIFIC ECG ABNORMALITIES RI6.02 No previous ECG available for comparison
[2020-02-27 08:01] LABS: BASO % 0 % (0-3); EOS # 0.1 x10^3/uL (0.0-0.7); EOS % 1 % (0-3); HEMATOCRIT 35.4 % (36.0-47.0); HEMOGLOBIN 11.7 g/dL (12.0-15.5); LYMPH # 1.8 x10^3/uL (1.0-4.8); LYMPH % 22 % (24-48); MEAN CORPUSCULAR HEMOGLOBIN 33 pg (25-35); MEAN CORPUSCULAR HGB CONC 33 g/dL (31-37); MEAN CORPUSCULAR VOLUME 100 fL (79-100); MONO # 1.2 x10^3/uL (0.0-1.1); MONO % 14 % (0-9); NEUT # 5.1 x10^3/uL (1.8-7.7); NEUT % 63 % (31-73); PLATELET COUNT 188 x10^3/uL (140-400); RED BLOOD COUNT 3.52 x10^6/uL (3.50-5.40); WHITE BLOOD COUNT 8.1 x10^3/uL (4.0-11.0)
[2020-02-27] MEDS: POTASSIUM CHLORIDE 10 MEQ TABLET.ER. PO SCH (08:24)
[2020-02-27] MEDS: LIDOCAINE (700MG/PATCH) PATCH. TD SCH ×2 (08:24→12:27)
[2020-02-27] MEDS: FUROSEMIDE 20 MG TABLET PO SCH (08:24)
[2020-02-27] MEDS: sulfaSALAzine 500 MG TABLET PO SCH ×2 (08:25→21:54)
[2020-02-27] MEDS: SERTRALINE 50 MG TABLET. PO SCH (08:26)
[2020-02-27] MEDS: APIXABAN 5 MG TABLET. PO SCH ×2 (08:26→21:54)
[2020-02-27] MEDS: DIGOXIN 125 MCG TABLET. PO SCH (08:26)
[2020-02-27] MEDS: HYDROXYCHLOROQUINE 200 MG TABLET PO SCH (08:26)
[2020-02-27] MEDS: FOLIC ACID 1 MG TABLET. PO SCH (08:26)
[2020-02-27 08:41] LABS: ALBUMIN 2.9 g/dL (3.4-5.0); ALBUMIN/GLOBULIN RATIO 0.8 (1.0-1.7); CALCIUM 8.4 mg/dL (8.5-10.1); CREATININE 1.5 mg/dL (0.6-1.0); GFR 33.4; POTASSIUM 3.9 mmol/L (3.5-5.1); TOTAL BILIRUBIN 0.4 mg/dL (0.2-1.0); TOTAL PROTEIN 6.4 g/dL (6.4-8.2)
[2020-02-27] MEDS ORDERED: DIGOXIN 125 MCG TABLET. PO SCH (09:00)
[2020-02-27 10:56] VITALS: BP 112/55
--- NOTE | 2020-02-27 12:07 | PDOC ---
ISMAEL PUENTE PROFESSOR OF PUBLIC ADMINISTRATION 02/27/20 1207: CARDIO Progress Notes Date and Time Date of Service 02/27/20 Time of Evaluation 1200 Subjective Subjective: No Chest Pain, No shortness of breath Vitals Vitals Vital Signs Date Time Temp Pulse Resp B/P (MAP) Pulse Ox O2 Delivery O2 Flow Rate FiO2 02/27/20 11:38 92 Room Air 02/27/20 10:56 98.0 66 19 112/55 (74) 1.0 98.0 Weight Weight [ ] Input and Output Intake and Output Intake and Output 02/27/20 07:00 Intake Total 1140 ml Output Total 750 ml Balance 390 ml Intake Oral 1140 ml Output Urine Total 750 ml Laboratory Labs Laboratory Tests Test 02/27/20 06:45 White Blood Count 8.1 x10^3/uL (4.0-11.0) Red Blood Count 3.52 x10^6/uL (3.50-5.40) Hemoglobin 11.7 g/dL (12.0-15.5) Hematocrit 35.4 % (36.0-47.0) Mean Corpuscular Volume 100 fL (79-100) Mean Corpuscular Hemoglobin 33 pg (25-35) Mean Corpuscular Hemoglobin Concent 33 g/dL (31-37) Red Cell Distribution Width 16.0 % (11.5-14.5) Platelet Count 188 x10^3/uL (140-400) Neutrophils (%) (Auto) 63 % (31-73) Lymphocytes (%) (Auto) 22 % (24-48) Monocytes (%) (Auto) 14 % (0-9) Eosinophils (%) (Auto) 1 % (0-3) Basophils (%) (Auto) 0 % (0-3) Neutrophils # (Auto) 5.1 x10^3/uL (1.8-7.7) Lymphocytes # (Auto) 1.8 x10^3/uL (1.0-4.8) Monocytes # (Auto) 1.2 x10^3/uL (0.0-1.1) Eosinophils # (Auto) 0.1 x10^3/uL (0.0-0.7) Basophils # (Auto) 0.0 x10^3/uL (0.0-0.2) Sodium Level 140 mmol/L (136-145) Potassium Level 3.9 mmol/L (3.5-5.1) Chloride Level 104 mmol/L (98-107) Carbon Dioxide Level 28 mmol/L (21-32) Anion Gap 8 (6-14) Blood Urea Nitrogen 28 mg/dL (7-20) Creatinine 1.5 mg/dL (0.6-1.0) Estimated GFR (Cockcroft-Gault) 33.4 BUN/Creatinine Ratio 19 (6-20) Glucose Level 102 mg/dL (70-99) Calcium Level 8.4 mg/dL (8.5-10.1) Total Bilirubin 0.4 mg/dL (0.2-1.0) Aspartate Amino Transf (AST/SGOT) 39 U/L (15-37) Alanine Aminotransferase (ALT/SGPT) 43 U/L (14-59) Alkaline Phosphatase 97 U/L (46-116) Creatine Kinase 126 U/L (26-192) Total Protein 6.4 g/dL (6.4-8.2) Albumin 2.9 g/dL (3.4-5.0) Albumin/Globulin Ratio 0.8 (1.0-1.7) Thyroid Stimulating Hormone (TSH) 4.101 uIU/mL (0.358-3.74) Physical Exam HEENT: Neck Supple W Full Motion Chest: Symmetric LUNGS: Clear to Auscultation Heart: irregularly irregular (AFIB) Abdomen: Soft N/T Extremities: No Edema Neurology: alert, oriented, follow commands Assessment Assessment 1. s/p Mechanical fall resulting in rib fractures. 2. Permanent AFIB with RVR upon arrival. Rate now controlled. recnet event monitor with 100% AFIB burden 3. Bioprosthetic aortic valve replacement, clinically stable. 2D echo in Apr showed normal LV systolic function with EF 60 to 65% and well-seated and normally functioning bioprosthetic aortic valve. Cardiac catheterization prior to valve replacement did not show any significant coronary disease. 4. Hypothyroidism: On levothyroxine 5. SHAYNA Recommendations Hold lasix therapy with SHAYNA Continue Cardizem and digoxin for rate control Metoprolol on hold with marginal BP. Resume when BP consistently adequate ASA therapy. Poor candidate for longtime OAC given multiple recent falls Outpatient referral for ANGELINA closure device. Justicifation of Admission Dx: Justifications for Admission: Justification of Admission Dx: Yes MCSWEYN,TORIN J MD 02/27/20 1718: CARDIO Progress Notes Assessment Assessment Patient seen and examined S/p Mechanical fall resulting in rib fractures. Permanent AFIB with RVR upon arrival. Rate now controlled. Continue rate control medications but holding metoprolol for marginal blood pressure. Poor candidate for long-term OAC. Bioprosthetic aortic valve replacement, clinically stable. 2D echo in April 2018 showed normal LV systolic function with EF 60 to 65% and well-seated and normally functioning bioprosthetic aortic valve. Cardiac catheterization prior to valve replacement did not show any significant coronary disease. SHAYNA. Lasix on hold. ISMAEL PUENTE APRN Feb 27, 2020 12:07 TORIN HURT MD Feb 27, 2020 17:18
--- NOTE | 2020-02-27 12:21 | PDOC ---
[employer] PROGRESS NOTE Date of Service DOS: DATE: 02/27/20 TIME: 12:11 History of Present Illness History of Present Illness 02/27/20 Pt seen and examined. Sitting up in chair, NAD. Reviewed chart, discussed with RN Vitals/I&O Vitals/I&O: Vital Signs Date Time Temp Pulse Resp B/P (MAP) Pulse Ox O2 Delivery O2 Flow Rate FiO2 02/27/20 11:38 92 Room Air 02/27/20 10:56 98.0 66 19 112/55 (74) 1.0 98.0 I & O 02/26/20 02/26/20 02/27/20 15:00 23:00 07:00 Intake Total 340 ml 800 ml Output Total 350 ml 400 ml Balance -10 ml 400 ml Physical Exam General: Alert, Oriented X3 Heart: Other (Tachycardic and irregular) Lungs: Wheezing Abdomen: Soft Extremities: No edema Skin: No rashes Labs Labs: Laboratory Tests Test 02/27/20 06:45 White Blood Count 8.1 x10^3/uL (4.0-11.0) Red Blood Count 3.52 x10^6/uL (3.50-5.40) Hemoglobin 11.7 g/dL (12.0-15.5) Hematocrit 35.4 % (36.0-47.0) Mean Corpuscular Volume 100 fL (79-100) Mean Corpuscular Hemoglobin 33 pg (25-35) Mean Corpuscular Hemoglobin Concent 33 g/dL (31-37) Red Cell Distribution Width 16.0 % (11.5-14.5) Platelet Count 188 x10^3/uL (140-400) Neutrophils (%) (Auto) 63 % (31-73) Lymphocytes (%) (Auto) 22 % (24-48) Monocytes (%) (Auto) 14 % (0-9) Eosinophils (%) (Auto) 1 % (0-3) Basophils (%) (Auto) 0 % (0-3) Neutrophils # (Auto) 5.1 x10^3/uL (1.8-7.7) Lymphocytes # (Auto) 1.8 x10^3/uL (1.0-4.8) Monocytes # (Auto) 1.2 x10^3/uL (0.0-1.1) Eosinophils # (Auto) 0.1 x10^3/uL (0.0-0.7) Basophils # (Auto) 0.0 x10^3/uL (0.0-0.2) Sodium Level 140 mmol/L (136-145) Potassium Level 3.9 mmol/L (3.5-5.1) Chloride Level 104 mmol/L (98-107) Carbon Dioxide Level 28 mmol/L (21-32) Anion Gap 8 (6-14) Blood Urea Nitrogen 28 mg/dL (7-20) Creatinine 1.5 mg/dL (0.6-1.0) Estimated GFR (Cockcroft-Gault) 33.4 BUN/Creatinine Ratio 19 (6-20) Glucose Level 102 mg/dL (70-99) Calcium Level 8.4 mg/dL (8.5-10.1) Total Bilirubin 0.4 mg/dL (0.2-1.0) Aspartate Amino Transf (AST/SGOT) 39 U/L (15-37) Alanine Aminotransferase (ALT/SGPT) 43 U/L (14-59) Alkaline Phosphatase 97 U/L (46-116) Creatine Kinase 126 U/L (26-192) Total Protein 6.4 g/dL (6.4-8.2) Albumin 2.9 g/dL (3.4-5.0) Albumin/Globulin Ratio 0.8 (1.0-1.7) Thyroid Stimulating Hormone (TSH) 4.101 uIU/mL (0.358-3.74) Review of Systems Review of Systems: Pt denies weakness, pt denies NVD Assessment and Plan Assessmemt and Plan Assessment: Rib fracture COVID screen pending Plan: Cardiac monitoring. Hold beta blockers. Normal saline, pain meds PT/OT. Home meds. DVT prophylaxis. Full code. Hope to discharge tomorrow AM. Problems Medical Problems: (1) Fall Status: Acute Comment Review of Relevant I have reviewed the following items sanjay (where applicable) has been applied. Medications: Current Medications Medications (Trade) Dose Ordered Sig/Vikram Route PRN Reason Start Time Stop Time Status Last Admin Dose Admin Miscellaneous (Lidoderm Patch Removal) 1 ea QHS MC 02/26/20 21:00 02/26/20 21:00 Morphine Sulfate (Morphine Sulfate) 2 mg PRN Q2HR PRN IV MODERATE TO SEVERE PAIN 02/26/20 12:15 02/27/20 08:46 RAYSHAWN JOSÉ III DO Feb 27, 2020 12:21
[2020-02-27] MEDS: IV NORMAL SALINE 1000ML BAG 1,000 ML IV SCH (12:29)
--- NOTE | 2020-02-27 13:36 | NUR ---
SS following for discharge planning. SS reviewed pt chart and discussed with pt RN. Pt is from home and is currently on room air. PT/OT recommended [facility]. COVID19 negative. SS met with pt and discussed discharge planning and [facility]. Pt requesting to go to [facility], ; fax [phone]. SS phoned and faxed referral as requested. SS currently awaiting acceptance decision and insurance determination and will proceed accordingly. Pt's RN notified.
[2020-02-27 15:00] VITALS: BP 99/57
--- NOTE | 2020-02-27 15:21 | NUR ---
SS following up with discharge planning. Pt accepted at [facility] pending insurance determination. SS will continue to follow for discharge planning.
[2020-02-27 19:15] VITALS: BP 109/79
[2020-02-27] MEDS: PATCH REMOVAL. MC SCH (21:00)
[2020-02-27] MEDS ORDERED: PATCH REMOVAL. MC SCH (21:00)
[2020-02-27 22:50] VITALS: BP 125/69
[2020-02-28 03:20] VITALS: BP 134/70
[2020-02-28] MEDS: IV NORMAL SALINE 1000ML BAG 1,000 ML IV SCH (04:06)
[2020-02-28] MEDS: HYDROcodone/APAP 5/325MG 1 TAB TABLET PO PRN ×2 (04:07→10:41)
[2020-02-28] MEDS: LEVOTHYROXINE 100 MCG TABLET PO SCH (04:07)
[2020-02-28 07:00] VITALS: BP 114/71
[2020-02-28] MEDS: BUDESONIDE 0.5 MG/2 ML NEBU. NEB SCH (08:05)
[2020-02-28] MEDS: ALBUTEROL SULFATE 2.5 MG/3 ML NEBU. NEB SCH ×2 (08:05→12:05)
[2020-02-28] MEDS: HYDROXYCHLOROQUINE 200 MG TABLET PO SCH (09:20)
[2020-02-28] MEDS: sulfaSALAzine 500 MG TABLET PO SCH (09:20)
[2020-02-28] MEDS: POTASSIUM CHLORIDE 10 MEQ TABLET.ER. PO SCH (09:21)
[2020-02-28] MEDS: SERTRALINE 50 MG TABLET. PO SCH (09:21)
[2020-02-28] MEDS: APIXABAN 5 MG TABLET. PO SCH (09:21)
[2020-02-28] MEDS: FOLIC ACID 1 MG TABLET. PO SCH (09:21)
[2020-02-28] MEDS: DIGOXIN 125 MCG TABLET. PO SCH (09:21)
[2020-02-28] MEDS: LIDOCAINE (700MG/PATCH) PATCH. TD SCH ×2 (09:22→09:23)
[2020-02-28 11:00] VITALS: BP 122/77
--- NOTE | 2020-02-28 11:42 | SNU/HH DC ---
DISCHARGE ORDERS DISCHARGE INFORMATION: FINAL DIAGNOSIS Problems Medical Problems: (1) Fall Status: Acute CONDITION ON DISCHARGE: Stable CODE STATUS: Code Status: Full SENIOR LIVING: SNF STAY <30 DAYS: Yes HOSPICE: HOSPICE: No HOSPICE EVAL & TREAT: No LTAC: ADMIT TO LTAC: No POST DISCHARGE ORDERS: ACTIVITY ORDERS: Activity as tolerated WEIGHT BEARING STATUS: No restrictions DIET AFTER DISCHARGE: Cardiac WOUND/INCISION CARE: Other, see below TREATMENT/EQUIPMENT ORDERS: ADAPTIVE EQUIPMENT NEEDED: None RESPIRATORY EQUIPMENT NEEDED: Oxygen Physical Therapy For: Evalulation/Treatment Occupational Therapy For: Evaluation/Treatment DISCHARGE MEDICATIONS: Home Meds Active Scripts Hydrocodone/Apap 5-325 (NORCO 5-325 TABLET) 1 Each Tablet, 1-2 EACH PO PRN Q6HRS PRN for PAIN, #15 as needed for pain Prov:RICCO KENNEY MD 01/16/19 Reported Medications Metoprolol Succinate (METOPROLOL SUCCINATE ( XL )) 25 Mg Tab.er.24h, 75 MG PO BID for HTN 02/26/20 Digoxin (DIGOXIN) 125 Mcg Tablet, 125 MCG PO DAILY for unknown 02/26/20 Meclizine Hcl (MECLIZINE HCL) 25 Mg Tablet, 25 MG PO TID PRN for Vertigo 03/03/19 Budesonide/Formoterol Fumarate (SYMBICORT 160-4.5 MCG INHALER) 10.2 Gm Hfa.aer.ad, 2 PUFF IH BID for shortness of breath 03/03/19 Potassium Chloride (POTASSIUM CHLORIDE) 10 Meq Tablet.er, 10 MEQ PO DAILY for supplement 05/23/18 Diltiazem Hcl (DILTIAZEM 24HR CD) 120 Mg Cap.er.24h, 120 MG PO BID for htn 05/23/18 Apixaban (ELIQUIS) 5 Mg Tablet, 5 MG PO BID for atrial fibrillation 05/23/18 Methotrexate Sodium (METHOTREXATE) 2.5 Mg Tablet, 5 TAB PO weekly on thursday for rheumatoid arthritis 02/22/18 Folic Acid (FOLIC ACID) 1 Mg Tablet, 1 TAB PO DAILY for supplement 02/22/18 Sertraline Hcl (ZOLOFT) 50 Mg Tablet, 1 TAB PO DAILY for depression 06/22/16 Furosemide (FUROSEMIDE) 20 Mg Tablet, 20 MG PO DAILY for diuretic 02/05/16 Sulfasalazine (SULFASALAZINE) 500 Mg Tablet, 1500 MG PO BID for renal disease 09/13/14 Levothyroxine Sodium (SYNTHROID) 100 Mcg Tablet, 100 MCG PO DAILYAC for hypothyroid 09/13/14 Hydroxychloroquine Sulfate (PLAQUENIL) 200 Mg Tablet, 200 MG PO DAILY for rheumatoid arthritis 05/08/14 RAYSHAWN JOSÉ III DO Feb 28, 2020 11:42
--- NOTE | 2020-02-28 12:03 | PDOC ---
[employer] PROGRESS NOTE Date of Service DOS: DATE: 02/28/20 TIME: 11:55 Chief Complaint Chief Complaint Patient presents with a fall after tripping over her laundry basket History of Present Illness History of Present Illness 02/28/20 Patient seen and examined. Sitting up in chair, NAD. Patient was alert and oriented. Reviewed chart, discussed with RN 02/27/20 Patient seen and examined. Sitting up in chair, NAD. Reviewed chart, discussed with RN Vitals/I&O Vitals/I&O: Vital Signs Date Time Temp Pulse Resp B/P (MAP) Pulse Ox O2 Delivery O2 Flow Rate FiO2 02/28/20 10:42 105 02/28/20 08:12 93 Room Air 02/28/20 07:00 98.0 20 114/71 (85) 98.0 02/27/20 15:00 1.0 I & O 02/27/20 02/27/20 02/28/20 15:00 23:00 07:00 Intake Total 550 ml 300 ml 400 ml Output Total 1100 ml 800 ml Balance 550 ml -800 ml -400 ml Physical Exam General: Alert, Oriented X3 Heart: Other (Tachycardic and irregular) Lungs: Wheezing Abdomen: Soft Extremities: No edema Skin: No rashes Review of Systems Review of Systems: Patient denies nausea, patient denies weakness Assessment and Plan Assessmemt and Plan Assessment Medical Problems: (1) Fall Status: Acute Atrial fibrillation Hypothyroidism Plan Discharge to SNU Prescribed hydrocodone for pain Resume heart meds as directed by cardiology Continue pain meds Full code DVT prophylaxis Home meds Comment Review of Relevant I have reviewed the following items sanjay (where applicable) has been applied. Medications: Current Medications Medications (Trade) Dose Ordered Sig/Vikram Route PRN Reason Start Time Stop Time Status Last Admin Dose Admin Sodium Chloride 1,000 ml @ 75 mls/hr [id number] IV 02/27/20 12:15 02/28/20 04:06 Lidocaine (Lidoderm) 1 patch DAILY TD 02/27/20 12:15 02/28/20 09:23 Miscellaneous (Lidoderm Patch Removal) 1 ea QHS MC 02/27/20 21:00 02/27/20 21:00 Acetaminophen/ Hydrocodone Bitart (Lortab 5/325) 2 tab PRN Q6HRS PRN PO SEVERE PAIN 02/27/20 12:30 02/28/20 10:41 Diltiazem HCl (Cardizem 24hr Cd) 120 mg 1X ONCE PO 02/28/20 10:15 02/28/20 10:16 DC 02/28/20 10:42 RAYSHAWN JOSÉ III DO Feb 28, 2020 12:03
--- NOTE | 2020-02-28 12:32 | DS ---
DATE OF DISCHARGE: 02/28/2020 ADMISSION DIAGNOSIS: Fall with rib fracture. DISCHARGE DIAGNOSIS: Resolving rib fractures. HOSPITAL COURSE: The patient is a pleasant elderly female who fell. She suffered rib fracture. We admitted the patient, did physical therapy and occupational therapy, gave her pain medications. We consulted Cardiology and over the past few days, she has returned to baseline. She does have some atrial fibrillation with rapid ventricular response, but we have got that under control with negative chronotropic agents. Today, I saw her and examined her, she is doing well. We plan to discharge to long-term. DISPOSITION: intermediate. ACTIVITY: As tolerated. DIET: Low sodium. MEDICATIONS: Please see MRAD. TOTAL TIME: 34 minutes. RAYSHAWN JOSÉ DO DR: JODEE/hazel JOB#: [id number] / [id number]
[2020-02-28] MEDS ORDERED: LIDO700A21 TD (12:51)
[2020-02-28] MEDS ORDERED: DILT120C99 PO (12:51)
[2020-02-28] MEDS ORDERED: Patch Removal MC (12:51)
[2020-02-28] MEDS ORDERED: HYDR-3135 PO (12:57)
--- NOTE | 2020-02-28 12:59 | SNU/HH DC ---
DISCHARGE ORDERS DISCHARGE INFORMATION: FINAL DIAGNOSIS Problems Medical Problems: (1) Fall Status: Acute CONDITION ON DISCHARGE: Stable CODE STATUS: Code Status: Full POST DISCHARGE ORDERS: ACTIVITY ORDERS: Activity as tolerated WEIGHT BEARING STATUS: No restrictions DIET AFTER DISCHARGE: Cardiac WOUND/INCISION CARE: Other, see below TREATMENT/EQUIPMENT ORDERS: ADAPTIVE EQUIPMENT NEEDED: None RESPIRATORY EQUIPMENT NEEDED: Oxygen Physical Therapy For: Evalulation/Treatment Occupational Therapy For: Evaluation/Treatment DISCHARGE MEDICATIONS: Home Meds Active Scripts Hydrocodone/Apap 10-325 (NORCO 10-325 TABLET) 1 Each Tablet, 1 TAB PO every 6 for pain, #60 TAB Prov:CASTLE,NIAL K III DO 02/28/20 [Patch Removal] 1 EA EACH No Conflict Check, 1 EA QHS Prov:CASTLE,NIAL K III DO 02/28/20 [Patch Removal] 1 EA EACH No Conflict Check, 1 EA QHS Prov:CASTLE,NIAL K III DO 02/28/20 Lidocaine (Lidocaine PATCH ) 1 Each Adh..patch, 2 PATCH TD DAILY for pain for 30 Days, #60 PATCH Prov:CASTLE,NIAL K III DO 02/28/20 Diltiazem Hcl (DILTIAZEM 24HR CD) 120 Mg Cap.er.24h, 240 MG PO DAILY for htn for 30 Days, #60 TAB Prov:CASTLE,NIAL K III DO 02/28/20 Reported Medications Metoprolol Succinate (METOPROLOL SUCCINATE ( XL )) 25 Mg Tab.er.24h, 75 MG PO BID for HTN 02/26/20 Meclizine Hcl (MECLIZINE HCL) 25 Mg Tablet, 25 MG PO TID PRN for Vertigo 03/03/19 Budesonide/Formoterol Fumarate (SYMBICORT 160-4.5 MCG INHALER) 10.2 Gm Hfa.aer.ad, 2 PUFF IH BID for shortness of breath 03/03/19 Potassium Chloride (POTASSIUM CHLORIDE) 10 Meq Tablet.er, 10 MEQ PO DAILY for supplement 05/23/18 Apixaban (ELIQUIS) 5 Mg Tablet, 5 MG PO BID for atrial fibrillation 05/23/18 Methotrexate Sodium (METHOTREXATE) 2.5 Mg Tablet, 5 TAB PO weekly on thursday for rheumatoid arthritis 02/22/18 Folic Acid (FOLIC ACID) 1 Mg Tablet, 1 TAB PO DAILY for supplement 02/22/18 Sertraline Hcl (ZOLOFT) 50 Mg Tablet, 1 TAB PO DAILY for depression 06/22/16 Sulfasalazine (SULFASALAZINE) 500 Mg Tablet, 1500 MG PO BID for renal disease 09/13/14 Levothyroxine Sodium (SYNTHROID) 100 Mcg Tablet, 100 MCG PO DAILYAC for hypothyroid 09/13/14 Hydroxychloroquine Sulfate (PLAQUENIL) 200 Mg Tablet, 200 MG PO DAILY for rheumatoid arthritis 05/08/14 Discontinued Reported Medications Digoxin (DIGOXIN) 125 Mcg Tablet, 125 MCG PO DAILY for unknown 02/26/20 Furosemide (FUROSEMIDE) 20 Mg Tablet, 20 MG PO DAILY for diuretic 02/05/16 Discontinued Scripts Hydrocodone/Apap 5-325 (NORCO 5-325 TABLET) 1 Each Tablet, 1-2 EACH PO PRN Q6HRS PRN for PAIN, #15 as needed for pain Prov:RICCO KENNEY MD 01/16/19 RAYSHAWN JOSÉ III DO Feb 28, 2020 12:59
[2020-02-28 13:23] LABS: CALCIUM 9.2 mg/dL (8.5-10.1); CREATININE 1.1 mg/dL (0.6-1.0); GFR 47.8; POTASSIUM 3.5 mmol/L (3.5-5.1)
--- NOTE | 2020-02-28 13:26 | NUR ---
SS following up with discharge planning. SS reviewed pt chart and discussed with pt RN. Discharge orders received for [facility], ; fax [phone]. SS phoned and faxed discharge orders to [facility]. Insurance authorization received. Pt will discharge today and go to [facility] at 1430 via [facility] transport, [id number]. Pt and pt's RN notified.
--- NOTE | 2020-02-28 14:00 | NUR ---
Discharge: Report called to Shanika at [facility] [phone]. Reviewed orders medication, follow-up, ect. Also reviewed with patient, patient verbalized understanding. IV's removed without complications, catheter tip in-tact. terrazas catheter removed. patient voided 3 times after catheter was removed. All belongings with patient. Patient assisted off of unit via wheelchair accompanied by [facility] transport.
--- NOTE | 2020-02-28 14:37 | PDOC ---
DEREK CHOW HUMAN RESOURCES TEAM MEMBER 02/28/20 1437: CARDIO Progress Notes Date and Time Date of Service 02/28/2020 Time of Evaluation 0955 Subjective Subjective: No Chest Pain, No shortness of breath, No Palpitations Vitals Vitals Vital Signs Date Time Temp Pulse Resp B/P (MAP) Pulse Ox O2 Delivery O2 Flow Rate FiO2 02/28/20 12:07 Room Air 02/28/20 11:00 98.1 104 20 122/77 (92) 95 98.1 02/27/20 15:00 1.0 Weight Weight [ ] Input and Output Intake and Output Intake and Output 02/28/20 06:59 Intake Total 1250 ml Output Total 1900 ml Balance -650 ml Intake Oral 1250 ml Output Urine Total 1900 ml Laboratory Labs Laboratory Tests Test 02/28/20 13:00 Sodium Level 142 mmol/L (136-145) Potassium Level 3.5 mmol/L (3.5-5.1) Chloride Level 105 mmol/L (98-107) Carbon Dioxide Level 30 mmol/L (21-32) Anion Gap 7 (6-14) Blood Urea Nitrogen 22 mg/dL (7-20) Creatinine 1.1 mg/dL (0.6-1.0) Estimated GFR (Cockcroft-Gault) 47.8 Glucose Level 124 mg/dL (70-99) Calcium Level 9.2 mg/dL (8.5-10.1) Physical Exam HEENT: Neck Supple W Full Motion Chest: Symmetric LUNGS: Clear to Auscultation Heart: irregularly irregular (AFIB) Abdomen: Soft N/T Extremities: No Edema Neurology: alert, oriented, follow commands Assessment Assessment 1. s/p Traumatic mechanical fall resulting in right rib fractures. 2. Permanent AFIB with RVR: Rate at 90-120 currently. recent event monitor with 100% AFIB burden 3. Bioprosthetic AVR: clinically stable 4. Hypothyroidism: On levothyroxine 5. SHAYNA: prerenal. better after hydration Recommendations 1. Continue digoxin. DC BB. Continue cardizem CD at higher dose for rate control 2. Eliquis for stroke prevention. Agree with SNU. 3. Outpatient referral for [facility] is a consideration. Will obtain [facility]TE as an outpt prior to next follow up. Justicifation of Admission Dx: Justifications for Admission: Justification of Admission Dx: Yes MCSWEYN,TORIN J MD 02/28/20 1629: CARDIO Progress Notes Assessment Assessment Patient seen and examined Discussed with our nurse practitioner. I agree with his assessment and plan. s/p Traumatic mechanical fall resulting in right rib fractures. Permanent AFIB with RVR: Rate at 90-120 currently. recent event monitor with 100% AFIB burden. On digoxin and Cardizem. Continuing Eliquis. Bioprosthetic AVR: clinically stable SHAYNA: prerenal. better after hydration. DEREK CHOW H[employer]AN RESOURCES TEAM MEMBER Feb 28, 2020 14:37 TORIN HURT MD Feb 28, 2020 16:29
[2020-02-28] MEDS ORDERED: DIGO125T3 PO (14:44)
== END 2020-02-28 14:43 | DRG 542 ==
LOC: ER 18:10 → 2 SOUTH 20:50
PROVIDERS: ADMIT Internal Medicine; ATTEND Internal Medicine
DX: M84.48XA Pathological fracture, other site, initial encounter for fracture (principal); N17.0 Acute kidney failure with tubular necrosis; I48.21 Permanent atrial fibrillation; E03.9 Hypothyroidism, unspecified; E78.5 Hyperlipidemia, unspecified; I12.9 Hypertensive chronic kidney disease with stage 1 through stage 4 chronic kidney disease, or unspecified chronic kidney disease; M06.9 Rheumatoid arthritis, unspecified; M81.0 Age-related osteoporosis without current pathological fracture; F32.9 Major depressive disorder, single episode, unspecified; K21.9 Gastro-esophageal reflux disease without esophagitis; K57.90 Diverticulosis of intestine, part unspecified, without perforation or abscess without bleeding; N18.9 Chronic kidney disease, unspecified; Z20.828 Contact with and (suspected) exposure to other viral communicable diseases; Z96.649 Presence of unspecified artificial hip joint; Z96.659 Presence of unspecified artificial knee joint; Z82.49 Family history of ischemic heart disease and other diseases of the circulatory system; Z85.118 Personal history of other malignant neoplasm of bronchus and lung; Z86.74 Personal history of sudden cardiac arrest; Z87.891 Personal history of nicotine dependence; Z90.710 Acquired absence of both cervix and uterus; Z95.3 Presence of xenogenic heart valve; Z90.49 Acquired absence of other specified parts of digestive tract; W18.09XA Striking against other object with subsequent fall, initial encounter; Y93.89 Activity, other specified; Y92.098 Other place in other non-institutional residence as the place of occurrence of the external cause; Y99.8 Other external cause status
CPT/HCPCS: 36415; 51702; 71250; 74150; 80048; 80053; 80162; 81001; 82550; 84443; 84484; 85025; 87426; 93005; 94640; 94760; 96361; 96374; 96376; 99285; G0238; J1160; J2270; J7030; 97110-GP; 97116-GP; 97530-GP; 97535-GO; G0378; J7613; J7626; U0003-CS

== ENCOUNTER → 2020-04-03 | Outpatient (CLI) | payer BC ==
[~2020-04-03] MED LIST changes: +DIGO125T3 PO; +HYDR-3135 PO; +LIDO700A21 TD; +METO-239 PO; +Patch Removal MC
--- NOTE | 2020-04-03 13:21 | CARD ---
MR#: [id number] Date of Study: 04/03/2020 Ordering Physician: TORIN HURT, Referring Physician: TORIN HURT, Tech: Mary Jane Pugh APPROVED REPORT EXAM: Two-dimensional and M-mode echocardiogram with Doppler and color Doppler. Other Information Quality : AverageHR: 57bpm INDICATION Aortic Valve Disease Surgery/Intervention Status/Post Aortic Valve Replacement: Bioprosthetic Type: Bovine Date: RISK FACTORS Hypertension 2D DIMENSIONS RVDd3.5 (2.9-3.5cm)Left Atrium(2D)4.2 (1.6-4.0cm) IVSd1.2 (0.7-1.1cm)Aortic Root(2D)2.7 (2.0-3.7cm) LVDd4.6 (3.9-5.9cm)LVOT Diameter2.0 (1.8-2.4cm) PWd1.1 (0.7-1.1cm)LVDs2.9 (2.5-4.0cm) FS (%) 37.4 %SV64.5 ml LVEF(%)67.6 (>50%) Aortic Valve AoV Peak Eugenio.275.1cm/sAoV VTI57.6cm AO Peak GR.30.3mmHgLVOT Peak Eugenio.170.5cm/s LVOT VTI 34.86cmAO Mean GR.18mmHg JUAN (VMAX)1.31wg4ELM (VTI)1.81cm2 Mitral Valve MV E Qodsesuc86.6cm/sMV DECEL WWWI216dm MV A Ibfumssh30.7cm/sMV E Mean Gr.2mmHg MV RON10fsO/A Ratio3.0 MVA (PHT)4.84cm2 TDI E/Lateral E'6.1E/Medial E'6.5 Pulmonary Valve PV Peak Nxywkfnz10.9cm/sPV Peak Grad.3mmHg Tricuspid Valve TR P. Wotdljjn273zm/sRAP TMFZACUY7rzOn TR Peak Gr.43ztRzYAHL51lbBj Pulmonary Vein S1 Osbijxqp96.3cm/sD2 Gmujtgpa18.2cm/s LEFT VENTRICLE The left ventricle is normal size. There is mild concentric left ventricular hypertrophy. The left ve ntricular systolic function is normal and the ejection fraction is within normal range. The Ejection Fraction is 50%. There is normal LV segmental wall motion. Tissue Doppler imaging reveals moderate le ft ventricular diastolic dysfunction. RIGHT VENTRICLE The right ventricle is moderately dilated. There is normal right ventricular wall thickness. The righ t ventricular systolic function is normal. ATRIA The left atrium is mildly dilated. The right atrium is mildly dilated. The interatrial septum is inta ct with no evidence for an atrial septal defect or patent foramen ovale as noted on 2-D or Doppler im aging. AORTIC VALVE Doppler and Color Flow revealed trace aortic regurgitation. Calculated aortic valve area is 2.0 cm2 w ith maximum pressure gradient of 32 mmHg and mean pressure gradient of 21 mmHg. There is a bioprosthe tic aortic valve prosthesis that is not well visualized. MITRAL VALVE The mitral valve is normal in structure and function. There is no evidence of mitral valve prolapse. There is no mitral valve stenosis. Doppler and Color-flow revealed trace mitral regurgitation. TRICUSPID VALVE The tricuspid valve is normal in structure and function. Doppler and Color Flow revealed mild tricusp id regurgitation with an estimated PAP of 39 mmHg. PULMONIC VALVE The pulmonic valve is not well visualized. Doppler and Color Flow revealed no pulmonic valvular regur gitation. There is no pulmonic valvular stenosis. GREAT VESSELS The aortic root is normal in size. The ascending aorta is normal in size. The IVC is normal in size a nd collapses >50% with inspiration. PERICARDIAL EFFUSION There is no evidence of significant pericardial effusion. Critical Notification Critical Value: No <Conclusion> The left ventricular systolic function is normal and the ejection fraction is within normal range. Th e Ejection Fraction is 50%. There is normal LV segmental wall motion. The right ventricle is moderately dilated. There is a bioprosthetic aortic valve prosthesis that is not well visualized. Calculated aortic valve area is 2.0 cm2 with maximum pressure gradient of 32 mmHg and mean pressure g radient of 21 mmHg. Doppler and Color Flow revealed mild tricuspid regurgitation with an estimated PAP of 39 mmHg. Signed by : Steve Ruose, Electronically Approved : 04/03/2020 13:21:10
== END | disposition home or self-care (01) ==
LOC: ECHO 09:48
PROVIDERS: ATTEND Internal Medicine Cardiovascular Disease
DX: I08.2 Rheumatic disorders of both aortic and tricuspid valves (principal)
CPT/HCPCS: 93306

== ENCOUNTER → 2020-07-24 | Outpatient (CLI) | payer BC ==
--- NOTE | 2020-07-24 17:56 | RAD ---
EXAM: CT Chest with IV contrast INDICATION: Reason: LUNG ADENOCARCINOMA / Spl. Instructions: / History: TECHNIQUE: Multi-detector row CT images were acquired from the thoracic inlet through the upper abdo men with the use of IV contrast. Sagittal and coronal images were acquired from the transaxial data. All CT scans performed at this facility utilize dose optimization techniques as appropriate to the ex am, including the following: Automated exposure control and adjustment of the mA and/or KV according to patient size (this includes techniques or standardized protocols for targeted exams where dose is indication/reason for exam). IV CONTRAST: Administered COMPARISON: Chest CT without IV contrast of 02/25/2020 and 01/17/2020 FINDINGS: CARDIOVASCULAR: Stable borderline cardiomegaly. Aortic valve prosthesis and dense multivessel reyes ry calcifications redemonstrated. Unchanged ectasia of the ascending thoracic aorta to 5 cm transvers e diameter. MEDIASTINUM & RADHA: Calcified mediastinal and right hilar lymph nodes. Moderate size hiatal hernia. M ild wall thickening of the thoracic esophagus. No mass or adenopathy. LUNGS: Stable bandlike consolidation in the posterior left upper lobe abutting the pleura and major f issure measuring up to 3.2 cm AP by 0.8 cm craniocaudal (sagittal image 24 series 6). PLEURAL SPACE: No pleural effusions or pneumothorax. OSSEOUS & SOFT TISSUE: Patient's right axillary lymph nodes show interval enlargement. The largest no w measures 1.4 cm short axis (image 10 of series 2), representing an increase in size from 0.5 cm on 01/17/2020 (image 4 of series 2 that exam). ABDOMEN: Previous cholecystectomy. Fat and bowel-containing partially imaged ventral abdominal wall hernia. IMPRESSION: 1. Stable bandlike consolidation in the posterior left upper lobe. 2. Enlarging right axillary lymph nodes. Correlate for any evidence of metastatic adenopathy. 3. Stable ectasia of the ascending thoracic aorta to 5 cm. 4. Moderate size hiatal hernia with mild wall thickening of the thoracic esophagus. Correlate for an y evidence of esophagitis. 5. Partially imaged ventral abdominal hernia containing fat and bowel. Electronically signed by: Sonya Huber MD (07/24/2020 5:54 PM) [id number]
== END ==
LOC: CT 09:49
PROVIDERS: ATTEND Radiology Radiation Oncology
DX: C34.90 Malignant neoplasm of unspecified part of unspecified bronchus or lung (principal); K44.9 Diaphragmatic hernia without obstruction or gangrene; K43.9 Ventral hernia without obstruction or gangrene; I25.10 Atherosclerotic heart disease of native coronary artery without angina pectoris; I70.0 Atherosclerosis of aorta; I77.810 Thoracic aortic ectasia; I51.7 Cardiomegaly; Z90.49 Acquired absence of other specified parts of digestive tract
CPT/HCPCS: 71250

== ENCOUNTER → 2020-09-25 | Outpatient (CLI) | payer BC ==
[~2020-09-25] MED LIST changes: +LISI10TA16 PO; -LISI10TA2 PO
--- NOTE | 2020-09-25 13:54 | RAD ---
DATE: 09/25/2020 9:35 AM EXAM: DIGITAL DIAGNOSTIC BILATERAL, EXT NON VASC RIGHT HISTORY: 79-year-old woman with history of lung cancer referred for breast imaging evaluation after right axillary adenopathy was identified on surveillance chest CT. COMPARISON: CT chest without IV contrast of 07/24/2020 Bilateral full field craniocaudal and mediolateral oblique images were obtained using digital technique. This study was interpreted with the benefit of Computerized Aided Detection (CAD). FINDINGS: Breast Density: SCATTERED The breast parenchyma shows scattered fibroglandular densities. Breast parenchyma level B Scattered benign calcifications bilaterally. Partially imaged right axillary lymph node with asymmetric cortical thickening is noted. No suspicious masses, microcalcifications or architectural distortion is present to suggest malignancy in either breast. Targeted ultrasound of the right axilla shows at least 2 lymph nodes with enlargement and cortical thickening, one of which correlates with the mammographically abnormal axillary lymph node. The second is rounded and measures 1.8 cm in diameter with effacement of the fatty hilum and demonstrable internal vascularity.. IMPRESSION: Suspicious right axillary lymph nodes. BI-RADS CATEGORY: 4 SUSPICIOUS ABNORMALITY- BIOPSY SHOULD BE CONSIDERED RECOMMENDED FOLLOW-UP: BIO BIOPSY RECOMMENDED Ultrasound-guided biopsy of the right axillary lymph nodes is recommended. Discussed with patient in person prior to her discharge from the imaging suite at approximately 11:50 AM on 09/25/2020, and with the patient's referring physician Dr. Saad Davenport in person at approximately 12:05 PM on 09/25/2020 PQRS compliance statement: Patient information was entered into a reminder system with a target due date for the next mammogram. Mammography is a sensitive method for finding small breast cancers, but it does not detect them all and is not a substitute for careful clinical examination. A negative mammogram does not negate a clinically suspicious finding and should not result in delay in biopsying a clinically suspicious abnormality. "Our facility is accredited by the [employer] Mammography [employer]."
== END ==
LOC: MAMMO 09:41
PROVIDERS: ATTEND Radiology Radiation Oncology
DX: R92.1 Mammographic calcification found on diagnostic imaging of breast (principal); N64.59 Other signs and symptoms in breast
CPT/HCPCS: 76881; 77066

== ENCOUNTER 2020-10-10 08:26 | Outpatient (CLI) | payer BC ==
[~2020-10-10] VITALS: Ht 152.4 cm; Wt 83.9 kg
[2020-10-10 09:00] VITALS: BP 171/122
[2020-10-10 09:30] LABS: BASO % 0 % (0-3); EOS % 0 % (0-3); HEMATOCRIT 37.6 % (36.0-47.0); HEMOGLOBIN 12.2 g/dL (12.0-15.5); LYMPH # 1.8 x10^3/uL (1.0-4.8); LYMPH % 27 % (24-48); MEAN CORPUSCULAR HEMOGLOBIN 31 pg (25-35); MEAN CORPUSCULAR HGB CONC 32 g/dL (31-37); MEAN CORPUSCULAR VOLUME 97 fL (79-100); MONO # 0.5 x10^3/uL (0.0-1.1); MONO % 8 % (0-9); NEUT # 4.4 x10^3/uL (1.8-7.7); NEUT % 64 % (31-73); PLATELET COUNT 216 x10^3/uL (140-400); RED BLOOD COUNT 3.88 x10^6/uL (3.50-5.40); RED CELL DISTRIBUTION WIDTH 15.2 % (11.5-14.5); WHITE BLOOD COUNT 6.8 x10^3/uL (4.0-11.0)
[2020-10-10] MEDS ORDERED: LIDOCAINE WITH 8.4% SOD BICARB 3 ML DISP.SYRIN. ONE (09:37)
[2020-10-10 10:01] VITALS: BP 188/111
[2020-10-10 10:31] VITALS: BP 145/100
[2020-10-10 10:43] VITALS: BP 180/92
[2020-10-10] MEDS ORDERED: LIDOCAINE WITH 8.4% SOD BICARB 3 ML DISP.SYRIN. IJ ONE (10:45)
[2020-10-10 10:57] VITALS: BP 160/111
[2020-10-10 11:14] VITALS: BP 114/95
--- NOTE | 2020-10-10 11:19 | NUR ---
Instructions provided on site care, procedure. Patient verbalized understanding. No questions at time of d/c. VS stable, no bleeding at site, bandaid intact. Patient taking AM BP/heart meds when getting home. Patient's friend, Mary Jane, driving her home. Patient told to followup regarding fluid/pain at groin site. States she will schedule procedure.
--- NOTE | 2020-10-12 08:40 | RAD ---
Ultrasound-guided biopsy, right axillary lymph node October 10, 2020 Indication: Axillary adenopathy Discussion: The procedure was explained in its entirety to the patient or the patients designated commercial representative by a member of the treatment team, including a discussion of the risks, benefits and commonly accepted alternatives to the procedure, as well as the expected consequences of no therapy whatsoever. Discussion of the risks included, but was not limited to, those that are most frequent and those that are rare but possibly severe or life-threatening, as well as the possibility of unforeseen complications. All elements of maximal sterile barrier technique including the use of a cap, mask, sterile gown, sterile gloves, large sterile sheet, appropriate hand hygiene, and 2% chlorhexidine for cutaneous antisepsis (or acceptable alternative antiseptic per current guidelines) were followed for this procedure. 1% lidocaine was administered for local anesthesia. Ultrasound evaluation demonstrates an abnormal lymph node right axilla similar to prior ultrasound exam. Reference ultrasound images were saved the medical record. Core biopsies were obtained and placed in formalin and RPMI fluid. Manual pressure was held. No immediate complications were identified. Impression: Ultrasound-guided biopsy, right axillary lymph node
--- NOTE | 2020-10-15 19:15 | PATHOLOGY ---
[facility] Accession Number: [id number] . 01 Material submitted: . lymph node - RIGHT AXILLARY LN CORE BIOPSY. Modifiers: right . 01 Clinical history: . HX LUNG AND BREAST CANCER FLOW TO [facility]IA [facility] ENLARGED RIGHT LYMPH NODE . 02 Diagnosis: Lymph node and fibroadipose tissue, right axillary lymph node needle biopsies: - Reactive lymphoid hyperplasia. See comment. (JPM:james; 10/15/2020) QMS 10/15/2020 1156 Local . 02 Comment: Sections of the right axillary lymph node needle biopsy reveal segments of lymph node and fibroadipose tissue. The freeman architecture appears preserved. There are lymphoid follicles within the cortex which contain germinal centers surrounded by a mantle of small lymphocytes. The paracortex is comprised predominantly of small lymphocytes. There is sinus histiocytosis which focally contains admixed neutrophils. There are increased plasma cells within the perisinusoidal areas. There is no evidence of metastatic carcinoma. There is no atypical large lymphoid cell proliferation, and there are no Viral-Bianca cells or variants identified. . A portion of the specimen is submitted for flow cytometric analysis and has a viability of 85.9%. Lymphocytes comprise 88.8% of total cells. T-cells comprise 67% of lymphoid cells and show a CD4/CD8 ratio of 5.0. NK-cells comprise 1% of lymphoid cells and are unremarkable. Mature B-cells comprise 32.4% of lymphoid cells and 28.8% of total cells and are polyclonal with an overall kappa/lambda ratio of 1.7. Granulocytes comprise 1.8% of total cells, and monocytes comprise 2.8% of total cells. CD45 dim, CD34 positive cells are not detected. . To confirm flow cytometric findings and characterize the target cells in a tissue architectural context, a panel of immunoperoxidase stains and in situ hybridization for kappa and lambda light chain are obtained on A1 and yield the following results: . AE1/AE3: Negative for metastatic carcinoma. CD20: Highlights lymphoid cells of lymphoid follicles and small population of lymphoid cells within paracortex. PAX5: Highlights lymphoid cells of lymphoid follicles and small population of lymphoid cells within paracortex. CD3: Highlights lymphoid cells primarily within paracortex. CD5: Highlights lymphoid cells within paracortex similar to CD3; B-lymphoid cells lack expression of CD5. CD23: Highlights follicular dendritic meshwork of lymphoid follicles. CD10: Highlights lymphoid cells of germinal centers of lymphoid follicles. BCL2: Lymphoid cells of lymphoid follicle germinal centers negative. BCL6: Lymphoid cells of germinal centers positive. [place]in D1: Lymphoid cells lack diffuse positivity. [place] and lambda ROBER: Perisinusoidal plasma cells are polyclonal. . 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 There is no evidence of metastatic carcinoma or of a malignant lymphoproliferative process. (JPM:james; 10/15/2020) . Special stains: AE1/AE3, CD20, PAX5, CD3, CD5, CD23, CD10, BCL2, BCL6, and cyclin D1 all on A1. [place] and lambda ROBER on A1. . 02 Electronically signed: . Baldo Dillard MD, Pathologist NPI- [id number] . 01 Gross description: . Received in formalin labeled "Greyson Casasia, right axillary lymph node" is a cylindrical orellana-brown soft tissue core measuring 1.4 cm in length and 0.1 cm in diameter. Also present within the container are multiple orellana-brown soft tissue fragments measuring in aggregate 0.4 x 0.3 x 0.1 cm. The specimen is submitted entirely in cassettes A1-A2. [place] [place] [facility] 10/15/2020 1138 Local . 02 Pathologist provided ICD-10: R59.9 . 02 CPT . 764933, C80759, D89263, Q63116, G44406 Specimen Comment: A courtesy copy of this report has been sent to [phone], [phone] Specimen Comment: [phone], , Specimen Comment: Report sent to ,DR KINNEY,DR ROJAS / DR KNOWLES Performed at: [address] [facility] [address], [place], [place] [id number] MD Mauricio Mosqueda MD Phone: [phone] Performed at: 02 [facility] [address] [place], [place] [id number] MD Baldo Dillard MD Phone: [phone]
== END 2020-10-10 11:25 | disposition home or self-care (01) ==
LOC: INTRAD 08:26
PROVIDERS: ATTEND Radiology Radiation Oncology
DX: R59.9 Enlarged lymph nodes, unspecified (principal); C34.12 Malignant neoplasm of upper lobe, left bronchus or lung; I11.0 Hypertensive heart disease with heart failure; I50.9 Heart failure, unspecified; E78.00 Pure hypercholesterolemia, unspecified; I48.91 Unspecified atrial fibrillation; E66.9 Obesity, unspecified; J44.9 Chronic obstructive pulmonary disease, unspecified; M19.90 Unspecified osteoarthritis, unspecified site; E03.9 Hypothyroidism, unspecified; F32.9 Major depressive disorder, single episode, unspecified; Z90.49 Acquired absence of other specified parts of digestive tract; Z98.890 Other specified postprocedural states; Z79.899 Other long term (current) drug therapy; Z87.891 Personal history of nicotine dependence; Z88.1 Allergy status to other antibiotic agents; Z20.822 Contact with and (suspected) exposure to COVID-19
CPT/HCPCS: 36415; 38505; 76942; 85025; 85610; 87426; 88184; 88185; J3490; U0003

== ENCOUNTER → 2021-04-23 | Outpatient (CLI) | payer BC ==
[~2021-04-23] MED LIST changes: -LISI2.5T PO; +LISI2.5T12 PO; +POTA-116 PO; -POTA10TA12 PO
--- NOTE | 2021-04-23 10:39 | RAD ---
CT THORAX WO dated 04/23/2021 9:43 AM Indication:Reason: Lung adenocarcinoma / Spl. Instructions: / History: Comparison: CT 07/24/2020. Technique: Helical noncontrast images were performed. Sagittal and coronal reconstructions were obtai jong. One or more of the following individualized dose reduction techniques were utilized for this examinat ion: 1. Automated exposure control 2. Adjustment of the mA and/or kV according to patient size 3. Use of iterative reconstruction technique Findings: The peripheral left upper lobe opacity has not changed appreciably. It has bandlike configuration con sistent with post treatment change. Linear left lower lobe opacity is stable and consistent with scar ring or atelectasis. On the right side, there is a small irregular nodule located medially in the rig ht lower lobe. This is very similar to the prior exam, although appears to have slowly progressed. AP dimension on the current study is about 0.5 cm in mediolateral dimension 0.[address] of 12/22/2018, this measured roughly 0.2 x 0.3 cm. No significant new parenchymal abnormality is seen. The central airways show no obstruction. No enlarged mediastinal or hilar lymph nodes are seen. Right axillary no de described on the prior study have decreased in size since the prior exam. There are no new enlarge d nodes. Dilatation of the ascending thoracic aorta appears similar to the previous exam. A moderate- sized hiatal hernia is again seen. Images through the upper abdomen show no new abnormality. There appear to be anterior abdominal wall hernias. IMPRESSION: Stable appearance of left lung abnormality. The right lower lobe nodule is similar to the prior study , although has enlarged slowly from older studies. Right axillary lymph nodes have regressed in size. Electronically signed by: Rd Vanessa Jr., MD (04/23/2021 10:37 AM) [facility]
== END ==
LOC: CT 09:35
PROVIDERS: ATTEND Radiology Radiation Oncology
DX: C34.12 Malignant neoplasm of upper lobe, left bronchus or lung (principal); R91.1 Solitary pulmonary nodule; K44.9 Diaphragmatic hernia without obstruction or gangrene; I77.810 Thoracic aortic ectasia
CPT/HCPCS: 71250

== ENCOUNTER → 2021-10-22 | Outpatient (CLI) | payer BC ==
--- NOTE | 2021-10-22 12:52 | RAD ---
CT THORAX WO History: Lung adenocarcinoma Comparison: 04/23/2021, 07/24/2020, 01/17/2020. Technique: Noncontrast CT of the chest. Findings: Assessment is limited by lack of IV contrast. Cardiovascular: There is an ascending aortic aneurysm measuring 4.8 cm diameter. Aortic valve replace ment. Heavy calcification of the left main and proximal left anterior descending coronary arteries. Mediastinum and cheryl: Calcified mediastinal and hilar lymph nodes. No enlarged adenopathy. Distal eso phageal wall thickening. Airways, lungs and pleura: The airways are patent. There is a left upper lobe band like opacity not s ignificantly changed from comparisons consistent with scarring/atelectasis. Redemonstrated in the sup erior segment right lower lobe, there is an 8 x 7 x 7 mm nodule (axial 33) which appears to be slowly enlarging. No significant consolidation. No effusion or pneumothorax. Upper abdomen: Moderate sized hiatal hernia. Status post cholecystectomy. 7 cm hypodensity in the brandi er too small to characterize likely benign cyst. Osseous structures and soft tissues: Multilevel degenerative changes of the spine. Mild retrolisthesi s of T12 on L1. Impression: 1. Minimal interval enlargement of 8 mm right lower lobe nodule. This is concerning for slow growing malignancy, possibly metastatic or separate primary lesion. 2. No significant interval change in left upper lobe bandlike scarring/atelectasis. 3. Redemonstrated moderate hiatal hernia with thickening of the distal esophagus. ------ Exposure: One or more of the following individualized dose reduction techniques were utilized for thi s examination: 1. Automated exposure control 2. Adjustment of the mA and/or kV according to patient size 3. Use of iterative reconstruction technique. Electronically signed by: Chadd Thakur MD (10/22/2021 12:50 PM) [facility]
== END ==
LOC: CT 10:14
PROVIDERS: ATTEND Radiology Radiation Oncology
DX: C34.12 Malignant neoplasm of upper lobe, left bronchus or lung (principal); R91.1 Solitary pulmonary nodule; I71.2 Thoracic aortic aneurysm, without rupture; I25.10 Atherosclerotic heart disease of native coronary artery without angina pectoris; K44.9 Diaphragmatic hernia without obstruction or gangrene; M47.814 Spondylosis without myelopathy or radiculopathy, thoracic region; M43.15 Spondylolisthesis, thoracolumbar region; Z90.49 Acquired absence of other specified parts of digestive tract
CPT/HCPCS: 71250